=== PATIENT | female | born 1945 | race Caucasian/White ===

== ENCOUNTER 2023-09-22 02:27 | Inpatient (IN) | payer MEDICARE ==
[2023-09-22 03:38] LABS: Basophils # (A) 0.1 k/uL (0-0.2); Basophils % (A) 1 %; Eosinophils # (A) 0.3 k/uL (0-0.7); Eosinophils % (A) 4 %; HCT 37.4 % (34.0-46.0); HGB 12.1 gm/dL (11.4-16.0); Lymphocytes # (A) 1.8 k/uL (1.0-4.8); Lymphocytes % (A) 21 %; MCH 34.6 pg (25.0-35.0); MCHC 32.5 g/dL (31.0-37.0); MCV 106.4 fL (80.0-100.0); Macrocytosis Moderate; Mean Platelet Volume 8.5; Monocytes # (A) 0.5 k/uL (0-1.0); Monocytes % (A) 6 %; Neutrophils # (A) 5.9 k/uL (1.3-7.7); Neutrophils % (A) 68 %; Platelet Count 293 k/uL (150-450); RBC 3.51 m/uL (3.80-5.40); WBC 8.8 k/uL (3.8-10.6)
[2023-09-22 03:51] LABS: ALT 11 U/L (4-34); AST 19 U/L (14-36); African American GFR (CKD) 36 (>60 ml/min/1.73 sqM); Albumin 3.9 g/dL (3.5-5.0); Alkaline Phosphatase 73 U/L (38-126); Anion Gap 15 mmol/L; Blood Urea Nitrogen 32 mg/dL (7-17); Calcium 9.1 mg/dL (8.4-10.2); Carbon Dioxide 18 mmol/L (22-30); Chloride 108 mmol/L (98-107); Glucose 113 mg/dL (74-99); INR 0.9 (<1.2); Non-African American GFR(CKD) 31 (>60 ml/min/1.73 sqM); Potassium 4.1 mmol/L (3.5-5.1); Prothrombin Time 10.4 sec (10.0-12.5); Sodium 141 mmol/L (137-145); Total Bilirubin 0.5 mg/dL (0.2-1.3); Total Protein 7.7 g/dL (6.3-8.2)
--- NOTE | 2023-09-22 03:56 | ED ---
General Adult HPI - General Chief complaint: Weakness Stated complaint: Weakness Time Seen by Provider: 09/22/23 03:32 Source: patient, RN notes reviewed, old records reviewed Mode of arrival: EMS Limitations: no limitations - History of Present Illness Initial comments: 78-year-old presenting for evaluation of increased weakness. Patient is incontinent of both urine and stool. states that she's been calm progressively more weak and difficult to take care of at home. She's been unable to stand without assistance. No specific fall or trauma. No reported fever. - Related Data Allergies Allergy/AdvReac Type Severity Reaction Status Date / Time prochlorperazine Allergy Anaphylaxis Verified 09/22/23 03:03 [From Compazine] Review of Systems ROS Statement: Those systems with pertinent positive or pertinent negative responses have been documented in the HPI. ROS Other: All systems not noted in ROS Statement are negative. Past Medical History Past Medical History: Diabetes Mellitus Additional Past Medical History / Comment(s): short term memory loss History of Any Multi-Drug Resistant Organisms: None Reported Past Surgical History: Hysterectomy Past Psychological History: No Psychological Hx Reported Smoking Status: Never smoker Past Alcohol Use History: Occasional Past Drug Use History: None Reported General Exam Limitations: no limitations General appearance: alert, in no apparent distress Head exam: Present: atraumatic, normocephalic Eye exam: Present: normal appearance, PERRL ENT exam: Present: normal exam Neck exam: Present: normal inspection Respiratory exam: Present: normal lung sounds bilaterally. Absent: respiratory distress, wheezes Cardiovascular Exam: Present: regular rate, normal rhythm GI/Abdominal exam: Present: soft. Absent: distended, tenderness, guarding Neurological exam: Present: alert, CN II-XII intact. Absent: motor sensory deficit Skin exam: Present: warm, dry, intact Course Vital Signs 09/22/23 09/22/23 02:57 04:53 Temperature 98 F Pulse Rate 69 66 Respiratory 18 18 Rate Blood Pressure 118/63 139/66 O2 Sat by Pulse 99 Oximetry Medical Decision Making - Medical Decision Making Was pt. sent in by a medical professional or institution (, PA, HORTICULTURE TEACHER, urgent care, hospital, or senior living...) When possible be specific @ -No Did you speak to anyone other than the patient for history (EMS, parent, family, police, friend...)? What history was obtained from this source @ -No Did you review nursing and triage notes (agree or disagree)? Why? @ -I reviewed and agree with nursing and triage notes Were old charts reviewed (outside hosp., previous admission, EMS record, old EKG, old radiological studies, urgent care reports/EKG's, senior living records)? Report findings @ -No old charts were reviewed Differential Diagnosis (chest pain, altered mental status, abdominal pain women, abdominal pain men, vaginal bleeding, weakness, fever, dyspnea, syncope, headache, dizziness, GI bleed, back pain, seizure, CVA, palpatations, mental health, musculoskeletal)? @ -Differential Weakness: Hypoglycemia, shock, sepsis, hyponatremia, anemia, infection, AK, ETOH, adverse medicine reaction, overdose, stroke, this is not meant to be an all-inclusive list. EKG interpreted by me (3pts min.). @Sinus rhythm rate of 62, NH interval 191, QRS duration 110, QTC [address] segment elevation. X-rays interpreted by me (1pt min.). @ -Chest x-ray negative for acute cardiopulmonary findings. CT interpreted by me (1pt min.). @ -None done U/S interpreted by me (1pt. min.). @ -None done What testing was considered but not performed or refused? (CT, X-rays, U/S, labs)? Why? @ -None What meds were considered but not given or refused? Why? @ -None Did you discuss the management of the patient with other professionals (professionals i.e. , PA, HORTICULTURE TEACHER, lab, RT, psych nurse, social services specialist, machinist outside, teacher, landing signal officer, spring encaser)? Give summary @ -No Was smoking cessation discussed for >3mins.? @ -No Was critical care preformed (if so, how long)? @ -No Were there social determinants of health that impacted care today? How? (Homelessness, low income, unemployed, alcoholism, drug addiction, transp ortation, low edu. Level, literacy, decrease access to med. care, fci, rehab)? @ -No Was there de-escalation of care discussed even if they declined (Discuss DNR or withdrawal of care, Hospice)? DNR status @ -No What co-morbidities impacted this encounter? (DM, HTN, Smoking, COPD, CAD, Cancer, CVA, ARF, Chemo, Hep., AIDS, mental health diagnosis, sleep apnea, morbid obesity)? @ -[Early dementia Was patient admitted / discharged? Hospital course, mention meds given and route, prescriptions, significant lab abnormalities, going to OR and other pertinent info. @ -78-year-old female presenting with weakness, difficulty ambulating, patient requiring more assistance at home and her is able to provide. This is been a gradual change. She has elevated creatinine at 1.58 without baseline for comparison. Urinalysis is pending. Other laboratory testing is unremarkable. Patient will likely require placement, or short-term rehabilitation She will be admitted to internal medicine. Undiagnosed new problem with uncertain prognosis? @ -No Drug Therapy requiring intensive monitoring for toxicity (Heparin, Nitro, Insulin, Cardizem)? @ -No Were any procedures done? @ -No Diagnosis/symptom? @ -[Generalized weakness, unable to ambulate without assistance Acute, or Chronic, or Acute on Chronic? @ -Acute Uncomplicated (without systemic symptoms) or Complicated (systemic symptoms)? @ -default Side effects of treatment? @ -No Exacerbation, Progression, or Severe Exacerbation? @ -No Poses a threat to life or bodily function? How? (Chest pain, USA, AK, pneumonia, PE, COPD, DKA, ARF, appy, cholecystitis, CVA, Diverticulitis, Homicidal, Suicidal, threat to staff... and all critical care pts) @Low risk at this time - Lab Data Result diagrams: 09/22/23 03:09 09/22/23 03:09 Lab Results 09/22/23 09/22/23 09/22/23 Range/Units 03:09 03:09 03:09 WBC 8.8 (3.8-10.6) k/uL RBC 3.51 L (3.80-5.40) m/uL Hgb 12.1 (11.4-16.0) gm/dL Hct 37.4 (34.0-46.0) % MCV 106.4 H (80.0-100.0) fL MCH 34.6 (25.0-35.0) pg MCHC 32.5 (31.0-37.0) g/dL RDW 13.0 (11.5-15.5) % Plt Count 293 (150-450) k/uL MPV 8.5 Neutrophils % 68 % Lymphocytes % 21 % Monocytes % 6 % Eosinophils % 4 % Basophils % 1 % Neutrophils # 5.9 (1.3-7.7) k/uL Lymphocytes # 1.8 (1.0-4.8) k/uL Monocytes # 0.5 (0-1.0) k/uL Eosinophils # 0.3 (0-0.7) k/uL Basophils # 0.1 (0-0.2) k/uL Macrocytosis Moderate PT 10.4 (10.0-12.5) sec INR 0.9 (<1.2) APTT 21.4 L (22.0-30.0) sec Sodium 141 (137-145) mmol/L Potassium 4.1 (3.5-5.1) mmol/L Chloride 108 H (98-107) mmol/L Carbon Dioxide 18 L (22-30) mmol/L Anion Gap 15 mmol/L BUN 32 H (7-17) mg/dL Creatinine 1.58 H (0.52-1.04) mg/dL Est GFR (CKD-EPI)AfAm 36 (>60 ml/min/1.73 sqM) Est GFR (CKD-EPI)NonAf 31 (>60 ml/min/1.73 sqM) Glucose 113 H (74-99) mg/dL Calcium 9.1 (8.4-10.2) mg/dL Total Bilirubin 0.5 (0.2-1.3) mg/dL AST 19 (14-36) U/L ALT 11 (4-34) U/L Alkaline Phosphatase 73 (38-126) U/L Troponin I (0.000-0.034) ng/mL Total Protein 7.7 (6.3-8.2) g/dL Albumin 3.9 (3.5-5.0) g/dL Influenza Type A (PCR) (Not Detectd) Influenza Type B (PCR) (Not Detectd) RSV (PCR) (Not Detectd) SARS-CoV-2 (PCR) (Not Detectd) 09/22/23 09/22/23 Range/Units 03:09 03:09 WBC (3.8-10.6) k/uL RBC (3.80-5.40) m/uL Hgb (11.4-16.0) gm/dL Hct (34.0-46.0) % MCV (80.0-100.0) fL MCH (25.0-35.0) pg MCHC (31.0-37.0) g/dL RDW (11.5-15.5) % Plt Count (150-450) k/uL MPV Neutrophils % % Lymphocytes % % Monocytes % % Eosinophils % % Basophils % % Neutrophils # (1.3-7.7) k/uL Lymphocytes # (1.0-4.8) k/uL Monocytes # (0-1.0) k/uL Eosinophils # (0-0.7) k/uL Basophils # (0-0.2) k/uL Macrocytosis PT (10.0-12.5) sec INR (<1.2) APTT (22.0-30.0) sec Sodium (137-145) mmol/L Potassium (3.5-5.1) mmol/L Chloride (98-107) mmol/L Carbon Dioxide (22-30) mmol/L Anion Gap mmol/L BUN (7-17) mg/dL Creatinine (0.52-1.04) mg/dL Est GFR (CKD-EPI)AfAm (>60 ml/min/1.73 sqM) Est GFR (CKD-EPI)NonAf (>60 ml/min/1.73 sqM) Glucose (74-99) mg/dL Calcium (8.4-10.2) mg/dL Total Bilirubin (0.2-1.3) mg/dL AST (14-36) U/L ALT (4-34) U/L Alkaline Phosphatase (38-126) U/L Troponin I <0.012 (0.000-0.034) ng/mL Total Protein (6.3-8.2) g/dL Albumin (3.5-5.0) g/dL Influenza Type A (PCR) Not Detected (Not Detectd) Influenza Type B (PCR) Not Detected (Not Detectd) RSV (PCR) Not Detected (Not Detectd) SARS-CoV-2 (PCR) Not Detected (Not Detectd) Disposition Clinical Impression: Dehydration, Weakness Disposition: ADMITTED IP TO THIS HOSP Condition: Stable Is patient prescribed a controlled substance at d/c from ED?: No Referrals: Trista Wilder MD [Primary Care Provider] - 1-2 days Time of Disposition: 05:06
[2023-09-22 04:21] LABS: Partial Thromboplastin Time 21.4 sec (22.0-30.0)
[2023-09-22] MEDS ORDERED: NALOXONE 0.4 MG/ML 1 ML VIAL IV PRN ×2 (05:06→10:25)
[2023-09-22] MEDS: SODIUM CHLORIDE 0.9% 1,000 ML IV SCH ×2 (05:11→16:06)
--- NOTE | 2023-09-22 06:00 | XR ---
EXAMINATION TYPE: XR chest 2V DATE OF EXAM: 09/22/2023 COMPARISON: NONE HISTORY: Weakness TECHNIQUE: Frontal and lateral views of the chest are obtained. FINDINGS: Mild linear interstitial changes favor chronic fibrosis. There is no suspicious focal air space opacity, pleural effusion, or pneumothorax seen. Patient is rotated to the right. The cardiac s ilhouette size is within normal limits. Surgical change to the cervical and lumbar spine is partially imaged. IMPRESSION: No acute process.
[2023-09-22 08:38] LABS: Glucose,Whole Blood 100 mg/dL (70-110)
[2023-09-22] MEDS ORDERED: CALCIUM CARBONATE 500 MG CHEWABLE PO PRN (10:25)
[2023-09-22] MEDS ORDERED: ONDANSETRON 4 MG/2 ML VIAL IVP PRN (10:25)
[2023-09-22] MEDS ORDERED: MELATONIN 3 MG TABLET PO PRN (10:25)
[2023-09-22] MEDS ORDERED: MAG HYDROX/AL HYDROX/SIMETH 30 ML CUP PO PRN (10:25)
[2023-09-22 11:25] LABS: Glucose,Whole Blood 379 mg/dL (70-110)
[2023-09-22] MEDS ORDERED: DEXTROSE 50% SYRINGE 50 ML IVP PRN ×2 (11:51)
[2023-09-22] MEDS: INSULIN ASPART (NovoLOG) 100 UNIT/ML VIAL SQ SCH ×3 (12:00→20:52)
[2023-09-22 12:03] LABS: C Reactive Protein 4.1 mg/dL (<1.0)
--- NOTE | 2023-09-22 12:59 | US ---
EXAMINATION TYPE: US kidneys/renal and bladder DATE OF EXAM: 09/22/2023 COMPARISON: NONE CLINICAL INDICATION: Female, 78 years old with history of Clarence; CLARENCE EXAM MEASUREMENTS: Right Kidney: 8.7x4.5x4.4 cm Left Kidney: 9.4x4.1x3.9 cm Right Kidney: No hydronephrosis or masses seen Left Kidney: No hydronephrosis or masses seen Bladder: wnl, pt. on cath Bilateral Jets seen: not visualized due to flash artifact There is no evidence for hydronephrosis at this point in time. No nephrolithiasis is seen. No melva s are identified. The urinary bladder is anechoic. exam slightly limited by bowel and body habitus, right kidney technically difficult to image due to m alrotation IMPRESSION: No obstructive uropathy or renal calculi.
[2023-09-22 13:30] LABS: T4, Free (Free Thyroxine) 1.18 ng/dL (0.78-2.19)
--- NOTE | 2023-09-22 13:46 | P.HPIM ---
History of Present Illness H&P Date: 09/22/23 History of present illness; she is a 78-year-old lady with significant past medi fei history of hypertension, dementia, was brought to the ER for evaluation for generalized weakness. patient is accompanied by her who noticed that over the last 1 week patient has become more weak. There was no complain of any fever or chills. No complaints of nausea, vomiting or abdominal pain. noted that the patient has no strength in her legs, patient spends most of her days in her lounge chair and even urinate there without trying to get up and go to the restroom. Family denies any recent falls. There was no complain of orthopnea or PND. There was no complain of shortness of breath. No complaint of chest pain.. Because of generalized weakness, patient was brought to the ER Initial lab work done in the ER showed WBC 8.8, hemoglobin 12.1, platelet count 293, sodium 141 potassium 4.1, BUN 22, creatinine 1.58, glucose 113 calcium 9.1 Influenza A not detected Influenza B not detected RSV not detected COVID-19 not detected EKG done in the ER showed heart rate of 62, no ST segment elevation or depression seen, no T-wave inversions seen. Chest x-ray done in the ER showed no acute process Patient admitted to internal medicine service REVIEW OF SYSTEMS: CONSTITUTIONAL: As mentioned above HEENT: No recent visual problems or hearing problems. Denied any sore throat. CARDIOVASCULAR: No chest pain, orthopnea, PND, no palpitations, no syncope. PULMONARY: No shortness of breath, no cough, no hemoptysis. GASTROINTESTINAL: No diarrhea, no nausea, no vomiting, no abdominal pain. NEUROLOGICAL: As mentioned above HEMATOLOGICAL: Denies any bleeding or petechiae. GENITOURINARY: Denies any burning micturition, frequency, or urgency. MUSCULOSKELETAL/RHEUMATOLOGICAL: Denies any joint pain, swelling, or any muscle pain. ENDOCRINE: Denies any polyuria or polydipsia. The rest of the 14-point review of systems is negative. PHYSICAL EXAMINATION: GENERAL: The patient is alert and oriented x3, not in any acute distress. Well developed, well nourished. HEENT: Pupils are round and equally reacting to light. EOMI. No scleral icterus. No conjunctival pallor. Normocephalic, atraumatic. No pharyngeal erythema. No thyromegaly. CARDIOVASCULAR: S1 and S2 present. No murmurs, rubs, or gallops. PULMONARY: Chest is clear to auscultation, no wheezing or crackles. ABDOMEN: Soft, nontender, nondistended, normoactive bowel sounds. No palpable organomegaly. MUSCULOSKELETAL: No joint swelling or deformity. EXTREMITIES: No cyanosis, clubbing, or pedal edema. NEUROLOGICAL: Gross neurological examination did not reveal any focal deficits. SKIN: No rashes. Assessment and plan Dehydration Acute kidney injury Hypertension Dementia Monitor vital signs Monitor CBC Monitor CMP Continue telemetry monitoring Ordered ultrasound of kidneys Continue IV fluids Check UA Ordered vitamin B12 and folate Ordered pro-Fei, ESR, CRP Continue antiemetics Check PT and OT Resume home meds Labs and medication were reviewed.. Continue same treatment. Continue with s ymptomatic treatment. Resume home medication. Monitor labs and vitals. DVT and GI prophylaxis. Further recommendations as per clinical course of the patient Dictation was produced using [employer] dictation software. please excuse any grammatical, word or spelling errors. Past Medical History Past Medical History: Diabetes Mellitus Additional Past Medical History / Comment(s): short term memory loss History of Any Multi-Drug Resistant Organisms: None Reported Past Surgical History: Hysterectomy Past Psychological History: No Psychological Hx Reported Smoking Status: Never smoker Past Alcohol Use History: Occasional Past Drug Use History: None Reported Medications and Allergies Home Medications Medication Instructions Recorded Confirmed Type Apixaban [Eliquis] 5 mg PO BID 09/22/23 09/22/23 History Atorvastatin [Lipitor] 40 mg PO DAILY 09/22/23 09/22/23 History Dicyclomine [Bentyl] 10 mg PO QID PRN 09/22/23 09/22/23 History Losartan [Cozaar] 25 mg PO DAILY 09/22/23 09/22/23 History Memantine [Namenda] 10 mg PO BID 09/22/23 09/22/23 History Pioglitazone [Actos] 15 mg PO DAILY 09/22/23 09/22/23 History Potassium Chloride ER [K-Dur 20] 20 meq PO PC-BID 09/22/23 09/22/23 History Allergies Allergy/AdvReac Type Severity Reaction Status Date / Time prochlorperazine Allergy Anaphylaxis Verified 09/22/23 10:22 [From Compazine] Physical Exam Vitals: Vital Signs Temp Pulse Pulse Resp BP BP Pulse Ox 09/22/23 08:30 98.1 F 69 17 141/70 95 09/22/23 06:32 66 17 133/59 96 09/22/23 04:53 66 18 139/66 09/22/23 02:57 98 F 69 18 118/63 99 Intake and Output 09/21/23 09/22/23 09/22/23 22:59 06:59 14:59 Other: Weight 95.254 kg Results CBC & Chem 7: 09/22/23 03:09 09/22/23 03:09 Labs: Abnormal Lab Results - Last 24 Hours (Table) 09/22/23 09/22/23 09/22/23 Range/Units 03:09 03:09 03:09 RBC 3.51 L (3.80-5.40) m/uL MCV 106.4 H (80.0-100.0) fL APTT 21.4 L (22.0-30.0) sec Chloride 108 H (98-107) mmol/L Carbon Dioxide 18 L (22-30) mmol/L BUN 32 H (7-17) mg/dL Creatinine 1.58 H (0.52-1.04) mg/dL Glucose 113 H (74-99) mg/dL
--- NOTE | 2023-09-22 15:11 | XR ---
EXAMINATION TYPE: XR spine complete AP and Lat DATE OF EXAM: 09/22/2023 2:24 PM CLINICAL INDICATION:Female, 78 years old with history of fall; [facility] COMPARISON: None TECHNIQUE: XR spine complete AP and Lat views of the thoracic spine in Frontal and lateral projection s. FINDINGS: Postsurgical changes to the cervical spine and lumbar spine with hardware intact. There is IVC filter. No evidence of acute fracture. There is scattered multilevel disk space narrowing withou t loss of vertebral body height. There is normal alignment of the thoracic vertebral bodies. Scattere d osteophyte formation along the anterior and lateral aspects of the vertebral bodies. Neural foramen are patent given limitations of this exam. Spinal canal appears patent. Severe atherosclerosis of th e arterial vasculature. IMPRESSION: Post surgical changes with hardware intact. Moderate multilevel degeneration changes with osteophyte formation and disc space narrowing..
[2023-09-22] MEDS: MEMANTINE 10 MG TAB PO SCH ×2 (16:06→20:09)
[2023-09-22 16:37] LABS: Glucose,Whole Blood 74 mg/dL (70-110)
[2023-09-22 20:06] LABS: Glucose,Whole Blood 165 mg/dL (70-110)
[2023-09-22] MEDS: traMADol 50 MG TAB PO PRN (20:08)
[2023-09-22] MEDS: APIXABAN 5 MG TAB PO SCH (20:09)
[2023-09-23] MEDS: traMADol 50 MG TAB PO PRN ×3 (02:26→16:35)
[2023-09-23 05:43] LABS: Appearance,Urine Clear (Clear); Bacteria,Urine Occasional /hpf; Bilirubin,Urine Negative (Negative); Blood,Urine Negative (Negative); Color,Urine Colorless; Glucose,Urine (UA) Negative (Negative); Ketones,Urine Negative (Negative); Leukocyte Esterase,Urine Large (Negative); Nitrite,Urine Positive (Negative); PH, Urine 5.5 (5.0-8.0); Protein,Urine Negative (Negative); RBC,Urine 1 /hpf (0-5); Specific Gravity,Urine 1.012 (1.001-1.035); Squamous Epithelial Cell,Urine 1 /hpf (0-4); Urobilinogen,Urine <2.0 mg/dL (<2.0); WBC,Urine 29 /hpf (0-5)
[2023-09-23 06:08] LABS: Glucose,Whole Blood 111 mg/dL (70-110)
[2023-09-23] MEDS: INSULIN ASPART (NovoLOG) 100 UNIT/ML VIAL SQ SCH ×4 (06:08→20:19)
[2023-09-23] MEDS: SODIUM CHLORIDE 0.9% 1,000 ML IV SCH ×2 (06:49→21:10)
[2023-09-23] MEDS: ATORVASTATIN 40 MG TAB PO SCH (08:15)
[2023-09-23] MEDS: MEMANTINE 10 MG TAB PO SCH ×2 (08:15→21:09)
[2023-09-23] MEDS: APIXABAN 5 MG TAB PO SCH ×2 (08:15→21:09)
[2023-09-23 09:07] LABS: ALT 9 U/L (4-34); AST 15 U/L (14-36); African American GFR (CKD) 45 (>60 ml/min/1.73 sqM); Albumin/Globulin Ratio 0.9; Alkaline Phosphatase 68 U/L (38-126); Anion Gap 11 mmol/L; Blood Urea Nitrogen 20 mg/dL (7-17); Calcium 8.9 mg/dL (8.4-10.2); Carbon Dioxide 20 mmol/L (22-30); Chloride 109 mmol/L (98-107); Globulin 3.4 g/dL; Glucose 101 mg/dL (74-99); Non-African American GFR(CKD) 39 (>60 ml/min/1.73 sqM); Potassium 4.2 mmol/L (3.5-5.1); Sodium 140 mmol/L (137-145); Total Bilirubin 0.7 mg/dL (0.2-1.3); Total Protein 6.4 g/dL (6.3-8.2)
--- NOTE | 2023-09-23 10:34 | P.PN ---
Subjective Progress Note Date: 09/23/23 she is a 78-year-old lady with significant past medical history of hypertension, dementia, was brought to the ER for evaluation for generalized weakness. patient is accompanied by her who noticed that over the last 1 week patient has become more weak. There was no complain of any fever or chills. No complaints of nausea, vomiting or abdominal pain. noted that the patient has no strength in her legs, patient spends most of her days in her lounge chair and even urinate there without trying to get up and go to the restroom. Family denies any recent falls. There was no complain of orthopnea or PND. There was no complain of shortness of breath. No complaint of chest pain.. Because of generalized weakness, patient was brought to the ER Initial lab work done in the ER showed WBC 8.8, hemoglobin 12.1, platelet count 293, sodium 141 potassium 4.1, BUN 22, creatinine 1.58, glucose 113 calcium 9.1 Influenza A not detected Influenza B not detected RSV not detected COVID-19 not detected EKG done in the ER showed heart rate of 62, no ST segment elevation or de pression seen, no T-wave inversions seen. Chest x-ray done in the ER showed no acute process Patient admitted to internal medicine service REVIEW OF SYSTEMS: CONSTITUTIONAL: No fever, no malaise,. CARDIOVASCULAR: No chest pain, no palpitations, no syncope. PULMONARY: No shortness of breath, no cough, GASTROINTESTINAL: No diarrhea, no nausea, no vomiting, no abdominal pain. NEUROLOGICAL: No headaches, no weakness, PHYSICAL EXAMINATION: GENERAL: The patient is alert and oriented x3, not in any acute distress. Well developed, well nourished. HEENT: Pupils are round and equally reacting to light. EOMI. No scleral icterus. No conjunctival pallor. Normocephalic, atraumatic. No pharyngeal erythema. No thyromegaly. CARDIOVASCULAR: S1 and S2 present. No murmurs, rubs, or gallops. PULMONARY: Chest is clear to auscultation, no wheezing or crackles. ABDOMEN: Soft, nontender, nondistended, normoactive bowel sounds. No palpable organomegaly. MUSCULOSKELETAL: No joint swelling or deformity. EXTREMITIES: No cyanosis, clubbing, or pedal edema. NEUROLOGICAL: Gross neurological examination did not reveal any focal deficits. SKIN: No rashes. Assessment and plan Dehydration UTI Acute kidney injury Hypertension Dementia Monitor vital signs Monitor CBC Monitor CMP Continue telemetry monitoring Ultrasound kidneys showed no obstruction or hydronephrosis Continue IV fluids UA suspicious for infection vitamin B12 is 376 and folate pro-Fei is normal, ESR is 75, CRP 4.1 Continue antiemetics PT and OT Resume home meds Labs and medication were reviewed.. Continue same treatment. Continue with symptomatic treatment. Resume home medication. Monitor labs and vitals. DVT and GI prophylaxis. Further recommendations as per clinical course of the patient Dictation was produced using [employer] dictation software. please excuse any grammatical, word or spelling errors. Objective - Vital Signs Vital signs: Vital Signs Temp 98.1 F 09/23/23 08:11 Pulse 78 09/23/23 08:11 Resp 18 09/23/23 08:11 BP 151/59 09/23/23 08:11 Pulse Ox 95 09/23/23 08:11 FiO2 Intake & Output 09/22/23 09/23/23 09/23/23 18:59 06:59 18:59 Intake Total 318 Output Total 400 1100 Balance -82 -1100 Intake: Oral 318 Output: Urine 400 1100 Other: Voiding Method External Catheter External Catheter External Catheter - Labs CBC & Chem 7: 09/22/23 03:09 09/23/23 08:00 Labs: Abnormal Lab Results - Last 24 Hours (Table) 09/22/23 09/22/23 09/22/23 Range/Units 10:36 10:36 11:23 ESR 75 H (0-30) mm/Hr Chloride (98-107) mmol/L Carbon Dioxide (22-30) mmol/L BUN (7-17) mg/dL Creatinine (0.52-1.04) mg/dL Glucose (74-99) mg/dL POC Glucose (mg/dL) 379 H (70-110) mg/dL C-Reactive Protein 4.1 H (<1.0) mg/dL Albumin (3.5-5.0) g/dL TSH 13.000 H (0.465-4.680) mIU/L Urine Nitrite (Negative) Ur Leukocyte Esterase (Negative) Urine WBC (0-5) /hpf Urine Bacteria (None) /hpf 09/22/23 09/23/23 09/23/23 Range/Units 20:05 05:20 06:07 ESR (0-30) mm/Hr Chloride (98-107) mmol/L Carbon Dioxide (22-30) mmol/L BUN (7-17) mg/dL Creatinine (0.52-1.04) mg/dL Glucose (74-99) mg/dL POC Glucose (mg/dL) 165 H 111 H (70-110) mg/dL C-Reactive Protein (<1.0) mg/dL Albumin (3.5-5.0) g/dL TSH (0.465-4.680) mIU/L Urine Nitrite Positive H (Negative) Ur Leukocyte Esterase Large H (Negative) Urine WBC 29 H (0-5) /hpf Urine Bacteria Occasional H (None) /hpf 09/23/23 Range/Units 08:00 ESR (0-30) mm/Hr Chloride 109 H (98-107) mmol/L Carbon Dioxide 20 L (22-30) mmol/L BUN 20 H (7-17) mg/dL Creatinine 1.32 H (0.52-1.04) mg/dL Glucose 101 H (74-99) mg/dL POC Glucose (mg/dL) (70-110) mg/dL C-Reactive Protein (<1.0) mg/dL Albumin 3.0 L (3.5-5.0) g/dL TSH (0.465-4.680) mIU/L Urine Nitrite (Negative) Ur Leukocyte Esterase (Negative) Urine WBC (0-5) /hpf Urine Bacteria (None) /hpf
[2023-09-23 11:11] LABS: HCT 33.5 % (37.2-46.3); HGB 10.8 g/dL (12.0-15.0); MCH 34.7 pg (27.0-32.0); MCHC 32.2 g/dL (32.0-37.0); MCV 107.7 FL (80.0-97.0); Mean Platelet Volume 10.9 FL (9.5-12.2); NRBC Per 100 WBC 0 X 10*3/uL (0.00-0.01); Platelet Count 270 X 10*3/uL (140-440); RBC 3.11 X 10*6/uL (4.10-5.20); RDW 13.3 % (11.5-14.5); WBC 9.24 X 10*3/uL (4.50-10.00)
[2023-09-23 12:02] LABS: Glucose,Whole Blood 85 mg/dL (70-110)
[2023-09-23 12:09] LABS: Basophils # (A) 0.06 X 10*3/uL (0.00-0.10); Basophils % (A) 0.6 %; Eosinophils # (A) 0.33 X 10*3/uL (0.04-0.35); Eosinophils % (A) 3.6 %; Lymphocytes # (A) 1.94 X 10*3/uL (0.90-5.00); Macrocytosis (M) 2+; Monocytes # (A) 1.05 X 10*3/uL (0.20-1.00); Monocytes % (A) 11.4 %; Neutrophils # (A) 5.83 X 10*3/uL (1.80-7.70); Neutrophils % (A) 63.1 %
[2023-09-23] MEDS: GABAPENTIN 100 MG CAP PO SCH ×2 (12:46→21:09)
[2023-09-23 16:32] LABS: Glucose,Whole Blood 86 mg/dL (70-110)
[2023-09-23 20:00] LABS: Glucose,Whole Blood 123 mg/dL (70-110)
[2023-09-23] MEDS: ACETAMINOPHEN TAB 325 MG TAB PO PRN (21:09)
[2023-09-24] MEDS: SODIUM CHLORIDE 0.9% 1,000 ML IV SCH ×2 (05:31→21:42)
[2023-09-24 06:56] LABS: Glucose,Whole Blood 93 mg/dL (70-110)
[2023-09-24] MEDS: INSULIN ASPART (NovoLOG) 100 UNIT/ML VIAL SQ SCH ×4 (06:58→21:42)
[2023-09-24] MEDS: APIXABAN 5 MG TAB PO SCH ×2 (08:02→21:32)
[2023-09-24] MEDS: ATORVASTATIN 40 MG TAB PO SCH (08:02)
[2023-09-24] MEDS: GABAPENTIN 100 MG CAP PO SCH ×2 (08:02→21:32)
[2023-09-24] MEDS: MEMANTINE 10 MG TAB PO SCH ×2 (08:03→21:32)
[2023-09-24] MEDS: traMADol 50 MG TAB PO PRN ×2 (09:08→16:32)
[2023-09-24] MEDS: ACETAMINOPHEN TAB 325 MG TAB PO PRN (10:53)
[2023-09-24 11:37] LABS: Glucose,Whole Blood 92 mg/dL (70-110)
--- NOTE | 2023-09-24 15:45 | P.PN ---
Subjective Progress Note Date: 09/24/23 78-year-old lady with significant past medical history of hypertension, dementia, was brought to the ER for evaluation for generalized weakness. patient is accompanied by her who noticed that over the last 1 week patient has become more weak. There was no complain of any fever or chills. No complaints of nausea, vomiting or abdominal pain. noted that the patient has no strength in her legs, patient spends most of her days in her lounge chair and even urinate there without trying to get up and go to the restroom. Family denies any recent falls. There was no complain of orthopnea or PND. There was no complain of shortness of breath. No complaint of chest pain.. Because of generalized weakness, patient was brought to the ER Initial lab work done in the ER showed WBC 8.8, hemoglobin 12.1, platelet count 293, sodium 141 potassium 4.1, BUN 22, creatinine 1.58, glucose 113 calcium 9.1 Influenza A not detected Influenza B not detected RSV not detected COVID-19 not detected EKG done in the ER showed heart rate of 62, no ST segment elevation or depression seen, no T-wave inversions seen. Chest x-ray done in the ER showed no acute process Patient has been evaluated by PT/OT and is recommended skilled rehab; discussed with patient that side and she is agreeable Objective - Vital Signs Vital signs: Vital Signs Temp 98.4 F 09/24/23 07:50 Pulse 79 09/24/23 07:50 Resp 18 09/24/23 07:50 BP 145/46 09/24/23 07:50 Pulse Ox 97 09/24/23 07:50 FiO2 Intake & Output 09/23/23 09/24/23 09/24/23 18:59 06:59 18:59 Intake Total 240 Output Total 425 700 Balance -425 -700 240 Weight 96 kg Intake: Oral 240 Output: Urine 425 700 Other: Voiding Method External Catheter External Catheter External Catheter - Exam GENERAL: The patient is alert and oriented x3, not in any acute distress. Well developed, well nourished. HEENT: Pupils are round and equally reacting to light. EOMI. No scleral icterus. No conjunctival pallor. Normocephalic, atraumatic. No pharyngeal erythema. No thyromegaly. CARDIOVASCULAR: S1 and S2 present. No murmurs, rubs, or gallops. PULMONARY: Chest is clear to auscultation, no wheezing or crackles. ABDOMEN: Soft, nontender, nondistended, normoactive bowel sounds. No palpable organomegaly. MUSCULOSKELETAL: No joint swelling or deformity. EXTREMITIES: No cyanosis, clubbing, or pedal edema. NEUROLOGICAL: Gross neurological examination did not reveal any focal deficits. SKIN: No rashes. - Labs CBC & Chem 7: 09/23/23 08:00 09/23/23 08:00 Labs: Abnormal Lab Results - Last 24 Hours (Table) 09/23/23 Range/Units 19:59 POC Glucose (mg/dL) 123 H (70-110) mg/dL Assessment and Plan Assessment: Dehydration Acute kidney injury Hypertension Dementia Monitor vital signs Monitor CBC Monitor CMP Continue telemetry monitoring Ordered ultrasound of kidneys Continue IV fluids Check UA Ordered vitamin B12 and folate Ordered pro-Fei, ESR, CRP Continue antiemetics Check PT and OT Resume home meds Labs and medication were reviewed.. Continue same treatment. Continue with symptomatic treatment. Resume home medication. Monitor labs and vitals. DVT and GI prophylaxis. Further recommendations as per clinical course of the patient
[2023-09-24 16:40] LABS: Glucose,Whole Blood 118 mg/dL (70-110)
[2023-09-24 20:05] LABS: Glucose,Whole Blood 117 mg/dL (70-110)
[2023-09-25] MEDS: traMADol 50 MG TAB PO PRN ×2 (02:28→08:18)
[2023-09-25] MEDS: INSULIN ASPART (NovoLOG) 100 UNIT/ML VIAL SQ SCH ×4 (06:04→20:26)
[2023-09-25 06:05] LABS: Glucose,Whole Blood 94 mg/dL (70-110)
[2023-09-25] MEDS: APIXABAN 5 MG TAB PO SCH ×2 (07:34→20:30)
[2023-09-25] MEDS: GABAPENTIN 100 MG CAP PO SCH ×2 (07:35→20:30)
[2023-09-25] MEDS: MEMANTINE 10 MG TAB PO SCH ×2 (07:35→20:30)
[2023-09-25] MEDS: ATORVASTATIN 40 MG TAB PO SCH (07:38)
[2023-09-25 09:38] LABS: BUN/Creat Ratio 12.64 Ratio (12.00-20.00); Blood Urea Nitrogen 17.7 mg/dL (9.0-27.0); Calcium 8.7 mg/dL (8.7-10.3); Carbon Dioxide 20.8 mmol/L (21.6-31.8); Chloride 108 mmol/L (96-109); Glucose 88 mg/dL (70-110); Potassium 4.1 mmol/L (3.5-5.5); Sodium 140 mmol/L (135-145)
[2023-09-25] MEDS: ACETAMINOPHEN TAB 325 MG TAB PO PRN ×2 (10:59→18:02)
[2023-09-25 12:40] LABS: Glucose,Whole Blood 166 mg/dL (70-110)
[2023-09-25 12:40] LABS: Glucose,Whole Blood 32 mg/dL (70-110)
[2023-09-25 12:48] LABS: Glucose,Whole Blood 150 mg/dL (70-110)
[2023-09-25 16:54] LABS: Glucose,Whole Blood 109 mg/dL (70-110)
[2023-09-25 19:21] LABS: Glucose,Whole Blood 99 mg/dL (70-110)
[2023-09-25] MEDS: SODIUM CHLORIDE 0.9% 1,000 ML IV SCH (19:54)
--- NOTE | 2023-09-25 19:54 | P.PN ---
Subjective Progress Note Date: 09/25/23 78-year-old lady with significant past medical history of hypertension, dementia, was brought to the ER for evaluation for generalized weakness. patient is accompanied by her who noticed that over the last 1 week patient has become more weak. There was no complain of any fever or chills. No complaints of nausea, vomiting or abdominal pain. noted that the patient has no strength in her legs, patient spends most of her days in her lounge chair and even urinate there without trying to get up and go to the restroom. Family denies any recent falls. There was no complain of orthopnea or PND. There was no complain of shortness of breath. No complaint of chest pain.. Because of generalized weakness, patient was brought to the ER Initial lab work done in the ER showed WBC 8.8, hemoglobin 12.1, platelet count 293, sodium 141 potassium 4.1, BUN 22, creatinine 1.58, glucose 113 calcium 9.1 Influenza A not detected Influenza B not detected RSV not detected COVID-19 not detected EKG done in the ER showed heart rate of 62, no ST segment elevation or depression seen, no T-wave inversions seen. Chest x-ray done in the ER showed no acute process Patient has been evaluated by PT/OT and is recommended skilled rehab; discussed with patient that side and she is agreeable 09/25/2023 Patient is seen and evaluated with aspirin at bedside; no specific complaints reported Vital signs are reviewed temperature 98.2, pulse 82, respirations 17 and blood pressure of 99/61 with O2 saturation 97% on 2 L Labs are stable with sodium 140, potassium 4.1, BUN/creatinine of 17.7 with creatinine of 1.4 blood glucoses ranging between 100-150 -- Patient has been evaluated by PT/OT and is recommended skilled rehab; we shouldn't and family are agreeable - Case management on board Objective - Vital Signs Vital signs: Vital Signs Temp 97.9 F 09/25/23 07:05 Pulse 82 09/25/23 08:18 Resp 16 09/25/23 08:18 BP 150/65 09/25/23 07:05 Pulse Ox 100 09/25/23 07:05 FiO2 Intake & Output 09/24/23 09/25/23 09/25/23 18:59 06:59 18:59 Intake Total 240 Output Total 800 1400 Balance -560 -1400 Intake: Oral 240 Output: Urine 800 1400 Other: Voiding Method External Catheter External Catheter External Catheter # Voids 2 - Exam GENERAL: The patient is alert and oriented x3, not in any acute distress. Well developed, well nourished. HEENT: Pupils are round and equally reacting to light. EOMI. No scleral icterus. No conjunctival pallor. Normocephalic, atraumatic. No pharyngeal erythema. No thyromegaly. CARDIOVASCULAR: S1 and S2 present. No murmurs, rubs, or gallops. PULMONARY: Chest is clear to auscultation, no wheezing or crackles. ABDOMEN: Soft, nontender, nondistended, normoactive bowel sounds. No palpable organomegaly. MUSCULOSKELETAL: No joint swelling or deformity. EXTREMITIES: No cyanosis, clubbing, or pedal edema. NEUROLOGICAL: Gross neurological examination did not reveal any focal deficits. SKIN: No rashes. - Labs CBC & Chem 7: 09/23/23 08:00 09/25/23 06:18 Labs: Abnormal Lab Results - Last 24 Hours (Table) 09/24/23 09/24/23 09/25/23 Range/Units 16:38 20:03 06:18 Carbon Dioxide 20.8 L (21.6-31.8) mmol/L Est GFR (CKD-EPI) 39 L (>=60) POC Glucose (mg/dL) 118 H 117 H (70-110) mg/dL Microbiology - Last 24 Hours (Table) 09/23/23 05:20 Urine Culture - Preliminary Urine,Voided Gram Neg Bacilli Assessment and Plan Assessment: Dehydration Acute kidney injury Hypertension Dementia Monitor vital signs Monitor CBC Monitor CMP Continue telemetry monitoring Ordered ultrasound of kidneys Continue IV fluids Check UA Ordered vitamin B12 and folate Ordered pro-Fei, ESR, CRP Continue antiemetics Check PT and OT Resume home meds Labs and medication were reviewed.. Continue same treatment. Continue with symptomatic treatment. Resume home medication. Monitor labs and vitals. DVT and GI prophylaxis. Further recommendations as per clinical course of the patient
--- NOTE | 2023-09-25 23:37 | P.CONS ---
History of Present Illness - Reason for Consult Consult date: 09/25/23 - History of Present Illness Patient is a 78-year-old female with a past medical history difficult for diabetes mellitus presenting to the hospital 09/22/2023 for evaluation of increased weakness incontinent of urine and stool in this patient symptom has been progressively getting worse has also been complaining of worsening of her chronic lower back pain patient on presentation to the hospital was afebrile she did spike a fever last night of 102.3 F, patient was also tachycardic last night but not hypoxic patient did have a white count of 9.24 creatinine is 1.4 liver labs has been normal patient did have a positive UA influenza RSV COVID testing was negative urine culture currently growing gram-negative patient was started on ceftriaxone infectious disease was consulted for further management of antibiotic therapy. Patient complaining of not feeling well no energy has had complaining of mostly lower back pain no focal weakness no chest pain shortness of breath or cough no nausea no vomiting no diarrhea Past Medical History Past Medical History: Diabetes Mellitus Additional Past Medical History / Comment(s): short term memory loss History of Any Multi-Drug Resistant Organisms: None Reported Past Surgical History: Hysterectomy Past Anesthesia/Blood Transfusion Reactions: No Reported Reaction Past Psychological History: No Psychological Hx Reported Smoking Status: Never smoker Past Alcohol Use History: Occasional Past Drug Use History: None Reported - Past Family History Mother History Unknown: Yes Medications and Allergies Home Medications Medication Instructions Recorded Confirmed Type Apixaban [Eliquis] 5 mg PO BID 09/22/23 09/22/23 History Atorvastatin [Lipitor] 20 mg PO HS 09/22/23 09/22/23 History Cholecalciferol [Vitamin D3 (125 250 mcg PO DAILY 09/22/23 09/22/23 History Mcg = 5000 Iu)] DULoxetine HCL [Cymbalta] 30 mg PO DAILY 09/22/23 09/22/23 History Dicyclomine [Bentyl] 10 mg PO QID PRN 09/22/23 09/22/23 History Donepezil [Aricept] 10 mg PO HS 09/22/23 09/22/23 History Furosemide [Lasix] 80 mg PO DAILY 09/22/23 09/22/23 History Isosorbide Mononitrate ER [Imdur] 30 mg PO DAILY 09/22/23 09/22/23 History Levothyroxine Sodium [Synthroid] 200 mcg PO DAILY 09/22/23 09/22/23 History Losartan [Cozaar] 25 mg PO DAILY 09/22/23 09/22/23 History Memantine [Namenda] 10 mg PO BID 09/22/23 09/22/23 History Metoprolol Tartrate [Lopressor] 25 mg PO BID 09/22/23 09/22/23 History Pioglitazone [Actos] 15 mg PO DAILY 09/22/23 09/22/23 History Potassium Chloride ER [K-Dur 20] 20 meq PO PC-BID 09/22/23 09/22/23 History rOPINIRole HCL [Requip] 0.5 mg PO HS 09/22/23 09/22/23 History Allergies Allergy/AdvReac Type Severity Reaction Status Date / Time prochlorperazine Allergy Anaphylaxis Verified 09/22/23 10:22 [From Compazine] Physical Exam Vitals: Vital Signs Temp Pulse Resp BP Pulse Ox 09/25/23 01:10 97.7 F 92 18 119/63 96 09/24/23 18:50 99.3 F 92 18 146/70 98 09/24/23 18:17 98 F 83 20 113/69 99 09/24/23 14:21 98.4 F 85 16 121/64 95 09/24/23 07:50 98.4 F 79 18 145/46 97 Intake and Output 09/24/23 09/25/23 09/25/23 22:59 06:59 14:59 Output Total 800 1400 Balance -800 -1400 Output: Urine 800 1400 Other: Voiding Method External Catheter # Voids 2 Results CBC & Chem 7: 09/23/23 08:00 09/25/23 06:18 Labs: Abnormal Lab Results - Last 24 Hours (Table) 09/24/23 09/24/23 Range/Units 16:38 20:03 POC Glucose (mg/dL) 118 H 117 H (70-110) mg/dL Microbiology - Last 24 Hours (Table) 09/23/23 05:20 Urine Culture - Preliminary Urine,Voided Gram Neg Bacilli Assessment and Plan Plan: 1patient with fever elevated white count positive UA urinary symptoms in the refinishing gram-negative highly suspicious for pyelonephritis likely from enteric gram-negative pathogen 2-complete ultrasound of the kidney bladder area 3-Rocephin 2 g daily to continue while waiting for the culture to finalize We will follow on clinical condition and cultures to further adjust medication if needed Thank you for this consultation we will follow the patient along with you Dictation was produced using [id number] dictation software. please excuse any grammatical, word or spelling errors. Time with Patient: Greater than 30
[2023-09-26] MEDS: SODIUM CHLORIDE 0.9% 1,000 ML IV SCH ×2 (01:46→19:39)
[2023-09-26 05:32] LABS: Glucose,Whole Blood 113 mg/dL (70-110)
[2023-09-26] MEDS: INSULIN ASPART (NovoLOG) 100 UNIT/ML VIAL SQ SCH ×4 (06:13→21:18)
--- NOTE | 2023-09-26 07:00 | P.PN ---
Subjective Progress Note Date: 09/26/23 78-year-old lady with significant past medical history of hypertension, dementia, was brought to the ER for evaluation for generalized weakness. patient is accompanied by her who noticed that over the last 1 week patient has become more weak. There was no complain of any fever or chills. No complaints of nausea, vomiting or abdominal pain. noted that the patient has no strength in her legs, patient spends most of her days in her lounge chair and even urinate there without trying to get up and go to the restroom. Family denies any recent falls. There was no complain of orthopnea or PND. There was no complain of shortness of breath. No complaint of chest pain.. Because of generalized weakness, patient was brought to the ER Initial lab work done in the ER showed WBC 8.8, hemoglobin 12.1, platelet count 293, sodium 141 potassium 4.1, BUN 22, creatinine 1.58, glucose 113 calcium 9.1 Influenza A not detected Influenza B not detected RSV not detected COVID-19 not detected EKG done in the ER showed heart rate of 62, no ST segment elevation or depression seen, no T-wave inversions seen. Chest x-ray done in the ER showed no acute process Patient has been evaluated by PT/OT and is recommended skilled rehab; discussed with patient that side and she is agreeable 09/25/2023 Patient is seen and evaluated with aspirin at bedside; no specific complaints reported Vital signs are reviewed temperature 98.2, pulse 82, respirations 17 and blood pressure of 99/61 with O2 saturation 97% on 2 L Labs are stable with sodium 140, potassium 4.1, BUN/creatinine of 17.7 with creatinine of 1.4 blood glucoses ranging between 100-150 -- Patient has been evaluated by PT/OT and is recommended skilled rehab; we shouldn't and family are agreeable - Case management on board 09/26/2023 Patient is seen and evaluated resting comfortably in bed; no specific complaints reported Vital signs remained stable with temperature of 98.9, pulse 100, respiration 22 and blood pressure of 163/81, O2 saturation 99% on room air patient with fever elevated white count positive UA urinary symptoms in the refinishing gram-negative highly suspicious for pyelonephritis likely from enteric gram-negative pathogen -complete ultrasound of the kidney bladder area -Rocephin 2 g daily to continue while waiting for the culture to finalize Objective - Vital Signs Vital signs: Vital Signs Temp 98.7 F 09/25/23 19:15 Pulse 88 09/25/23 19:15 Resp 18 09/25/23 19:15 BP 152/75 09/25/23 19:15 Pulse Ox 99 09/25/23 19:15 FiO2 Intake & Output 09/25/23 09/25/23 09/26/23 06:59 18:59 06:59 Output Total 1400 3200 Balance -1400 -3200 Output: Urine 1400 3200 Other: Voiding Method External Catheter External Catheter External Catheter # Voids 2 - Exam GENERAL: The patient is alert and oriented x3, not in any acute distress. Well developed, well nourished. HEENT: Pupils are round and equally reacting to light. EOMI. No scleral icterus. No conjunctival pallor. Normocephalic, atraumatic. No pharyngeal erythema. No thyromegaly. CARDIOVASCULAR: S1 and S2 present. No murmurs, rubs, or gallops. PULMONARY: Chest is clear to auscultation, no wheezing or crackles. ABDOMEN: Soft, nontender, nondistended, normoactive bowel sounds. No palpable organomegaly. MUSCULOSKELETAL: No joint swelling or deformity. EXTREMITIES: No cyanosis, clubbing, or pedal edema. NEUROLOGICAL: Gross neurological examination did not reveal any focal deficits. SKIN: No rashes. - Labs CBC & Chem 7: 09/23/23 08:00 09/25/23 06:18 Labs: Abnormal Lab Results - Last 24 Hours (Table) 09/25/23 09/25/23 09/25/23 Range/Units 06:18 12:38 12:39 Carbon Dioxide 20.8 L (21.6-31.8) mmol/L Est GFR (CKD-EPI) 39 L (>=60) POC Glucose (mg/dL) 32 L 166 H (70-110) mg/dL 09/25/23 Range/Units 12:47 Carbon Dioxide (21.6-31.8) mmol/L Est GFR (CKD-EPI) (>=60) POC Glucose (mg/dL) 150 H (70-110) mg/dL Microbiology - Last 24 Hours (Table) 09/23/23 05:20 Urine Culture - Final Urine,Voided Escherichia coli Assessment and Plan Assessment: Dehydration Acute kidney injury Hypertension Dementia Monitor vital signs Monitor CBC Monitor CMP Continue telemetry monitoring Ordered ultrasound of kidneys Continue IV fluids Check UA Ordered vitamin B12 and folate Ordered pro-Fei, ESR, CRP Continue antiemetics Check PT and OT Resume home meds Labs and medication were reviewed.. Continue same treatment. Continue with symptomatic treatment. Resume home medication. Monitor labs and vitals. DVT and GI prophylaxis. Further recommendations as per clinical course of the pat ient
[2023-09-26] MEDS: APIXABAN 5 MG TAB PO SCH ×2 (08:23→21:20)
[2023-09-26] MEDS: ATORVASTATIN 40 MG TAB PO SCH (08:23)
[2023-09-26] MEDS: GABAPENTIN 100 MG CAP PO SCH ×2 (08:23→21:20)
[2023-09-26] MEDS: MEMANTINE 10 MG TAB PO SCH ×2 (08:23→21:20)
[2023-09-26] MEDS: traMADol 50 MG TAB PO PRN ×2 (08:28→16:27)
[2023-09-26 09:52] LABS: BUN/Creat Ratio 13.86 Ratio (12.00-20.00); Blood Urea Nitrogen 19.4 mg/dL (9.0-27.0); Calcium 9.2 mg/dL (8.7-10.3); Carbon Dioxide 20.5 mmol/L (21.6-31.8); Chloride 109 mmol/L (96-109); Glucose 98 mg/dL (70-110); Potassium 4.2 mmol/L (3.5-5.5); Sodium 141 mmol/L (135-145)
[2023-09-26] MEDS: ACETAMINOPHEN TAB 325 MG TAB PO PRN (10:44)
[2023-09-26 11:34] LABS: Glucose,Whole Blood 98 mg/dL (70-110)
[2023-09-26 16:41] LABS: Glucose,Whole Blood 96 mg/dL (70-110)
[2023-09-26 19:57] LABS: Glucose,Whole Blood 113 mg/dL (70-110)
[2023-09-27] MEDS: traMADol 50 MG TAB PO PRN ×3 (00:27→18:03)
[2023-09-27] MEDS: SODIUM CHLORIDE 0.9% 1,000 ML IV SCH ×2 (04:42→12:38)
[2023-09-27 06:04] LABS: Glucose,Whole Blood 92 mg/dL (70-110)
[2023-09-27] MEDS: APIXABAN 5 MG TAB PO SCH ×2 (08:55→21:50)
[2023-09-27] MEDS: ATORVASTATIN 40 MG TAB PO SCH (08:55)
[2023-09-27] MEDS: MEMANTINE 10 MG TAB PO SCH ×2 (08:55→21:50)
[2023-09-27] MEDS: GABAPENTIN 100 MG CAP PO SCH ×2 (08:55→21:50)
[2023-09-27] MEDS: INSULIN ASPART (NovoLOG) 100 UNIT/ML VIAL SQ SCH ×4 (09:01→21:50)
[2023-09-27] MEDS: ACETAMINOPHEN TAB 325 MG TAB PO PRN ×3 (10:08→23:54)
[2023-09-27 10:45] LABS: Basophils % (A) 1 %; Eosinophils # (A) 0.3 k/uL (0-0.7); Eosinophils % (A) 6 %; HCT 30.8 % (34.0-46.0); HGB 10.1 gm/dL (11.4-16.0); Hypochromasia Slight; Lymphocytes # (A) 1.1 k/uL (1.0-4.8); Lymphocytes % (A) 17 %; MCH 35.1 pg (25.0-35.0); MCHC 32.9 g/dL (31.0-37.0); MCV 106.7 fL (80.0-100.0); Macrocytosis Moderate; Mean Platelet Volume 8.3; Monocytes # (A) 0.4 k/uL (0-1.0); Monocytes % (A) 6 %; Neutrophils # (A) 4.3 k/uL (1.3-7.7); Neutrophils % (A) 69 %; Platelet Count 316 k/uL (150-450); RBC 2.89 m/uL (3.80-5.40); RDW 12.7 % (11.5-15.5); WBC 6.3 k/uL (3.8-10.6)
[2023-09-27 11:32] LABS: Glucose,Whole Blood 87 mg/dL (70-110)
[2023-09-27 11:58] LABS: African American GFR (CKD) 42 (>60 ml/min/1.73 sqM); Anion Gap 8 mmol/L; Blood Urea Nitrogen 20 mg/dL (7-17); Calcium 9.1 mg/dL (8.4-10.2); Carbon Dioxide 23 mmol/L (22-30); Chloride 107 mmol/L (98-107); Glucose 80 mg/dL (74-99); Magnesium 1.7 mg/dL (1.6-2.3); Non-African American GFR(CKD) 37 (>60 ml/min/1.73 sqM); Potassium 4.1 mmol/L (3.5-5.1); Sodium 138 mmol/L (137-145)
[2023-09-27] MEDS ORDERED: DICYCLOMINE 10 MG CAP PO PRN (13:57)
[2023-09-27 17:17] LABS: Glucose,Whole Blood 102 mg/dL (70-110)
[2023-09-27] MEDS: POTASSIUM CHLORIDE ER 20 MEQ TAB.ER PO SCH (17:35)
[2023-09-27] MEDS ORDERED: DONEPEZIL 10 MG TAB PO SCH (21:00)
[2023-09-27 21:30] LABS: Glucose,Whole Blood 129 mg/dL (70-110)
[2023-09-27] MEDS: METOPROLOL TARTRATE 25 MG TAB PO SCH (21:50)
[2023-09-28 05:55] LABS: Glucose,Whole Blood 99 mg/dL (70-110)
[2023-09-28] MEDS ORDERED: LEVOTHYROXINE 100 MCG TAB PO SCH (06:30)
[2023-09-28] MEDS: INSULIN ASPART (NovoLOG) 100 UNIT/ML VIAL SQ SCH ×2 (06:38→11:48)
[2023-09-28] MEDS: ATORVASTATIN 40 MG TAB PO SCH (08:22)
[2023-09-28] MEDS: MEMANTINE 10 MG TAB PO SCH (08:22)
[2023-09-28] MEDS: APIXABAN 5 MG TAB PO SCH (08:22)
[2023-09-28] MEDS: POTASSIUM CHLORIDE ER 20 MEQ TAB.ER PO SCH (08:22)
[2023-09-28] MEDS: METOPROLOL TARTRATE 25 MG TAB PO SCH (08:23)
[2023-09-28] MEDS: GABAPENTIN 100 MG CAP PO SCH (08:23)
[2023-09-28] MEDS: SODIUM CHLORIDE 0.9% 1,000 ML IV SCH (08:27)
[2023-09-28] MEDS ORDERED: DULoxetine HCL 30 MG CAPSULE.DR PO SCH (09:00)
[2023-09-28] MEDS ORDERED: CHOLECALCIFEROL 125 MCG (5000 IU) TABLET PO SCH (09:00)
[2023-09-28] MEDS ORDERED: FUROSEMIDE 80 MG TAB PO SCH (09:00)
[2023-09-28] MEDS ORDERED: ISOSORBIDE MONONITRATE ER 30 MG TAB.ER.24H PO SCH (09:00)
[2023-09-28] MEDS ORDERED: LOSARTAN 25 MG TAB PO SCH (09:00)
[2023-09-28] MEDS ORDERED: PIOGLITAZONE 15 MG TAB PO SCH (09:00)
[2023-09-28] MEDS: ACETAMINOPHEN TAB 325 MG TAB PO PRN (10:43)
[2023-09-28 10:48] LABS: Basophils # (A) 0.07 X 10*3/uL (0.00-0.10); Eosinophils # (A) 0.34 X 10*3/uL (0.04-0.35); HCT 28.7 % (37.2-46.3); HGB 9.2 g/dL (12.0-15.0); Lymphocytes # (A) 1.73 X 10*3/uL (0.90-5.00); Lymphocytes % (A) 25.4 %; MCH 33.7 pg (27.0-32.0); MCHC 32.1 g/dL (32.0-37.0); MCV 105.1 FL (80.0-97.0); Mean Platelet Volume 10.6 FL (9.5-12.2); Monocytes % (A) 13.2 %; NRBC Per 100 WBC 0 X 10*3/uL (0.00-0.01); Neutrophils # (A) 3.72 X 10*3/uL (1.80-7.70); Neutrophils % (A) 54.8 %; Platelet Count 324 X 10*3/uL (140-440); RBC 2.73 X 10*6/uL (4.10-5.20); RDW 13.1 % (11.5-14.5)
[2023-09-28 11:08] LABS: ALT 13 U/L (8-44); AST 26 U/L (13-35); Albumin 2.8 g/dL (3.8-4.9); Albumin/Globulin Ratio 0.97 Ratio (1.60-3.17); Alkaline Phosphatase 54 U/L (41-126); BUN/Creat Ratio 13.43 Ratio (12.00-20.00); Blood Urea Nitrogen 18.8 mg/dL (9.0-27.0); Carbon Dioxide 21.6 mmol/L (21.6-31.8); Chloride 111 mmol/L (96-109); Globulin 2.9 g/dL (1.6-3.3); Glucose 82 mg/dL (70-110); Potassium 4.3 mmol/L (3.5-5.5); Sodium 142 mmol/L (135-145); Total Bilirubin 0.2 mg/dL (0.3-1.2); Total Protein 5.7 g/dL (6.2-8.2)
[2023-09-28 11:46] LABS: Glucose,Whole Blood 107 mg/dL (70-110)
--- NOTE | 2023-09-28 12:07 | PN ---
PROGRESS NOTE DATE OF SERVICE: 09/27/2023 SUBJECTIVE: This is a 78-year-old woman who was admitted with dehydration, hypertension, also had features of pyelonephritis. The patient is being closely monitored. No chest pain. No palpitations. No fever. E coli grown from the culture. PHYSICAL EXAMINATION: VITAL SIGNS: Pulse is 76, blood pressure n respiratory rate 17. HEENT: Conjunctivae normal. ABDOMEN: Soft LABORATORY DATA: Hemoglobin 10.1, creatinine 1.31. Other labs are noted. ASSESSMENT: 1. Acute urinary tract infection with possible pyelonephritis with Escherichia coli. 2. Dehydration. 3. Acute kidney injury. 4. Hypertension. 5. Dementia. 6. Multiple complex medical issues. RECOMMENDATIONS: Continue current management and continue the antibiotics. Otherwise, I recommend repeat labs, PT/OT evaluation, and possible ECF rehab. ESTHER / LUKAS: [id number] / MTDD
--- NOTE | 2023-09-28 13:06 | P.DS ---
Providers Date of admission: 09/22/23 05:06 Expected date of discharge: 09/28/23 Attending physician: Herman Dean Consults: 09/24/23 17:26 Consult Physician Routine Consulting Provider: Rochelle Fong Consult Reason/Comments: uti, gram negative bacilli Do you want consulting provider notified?: Yes Primary care physician: Trista Wilder Hospital Course: Final diagnosis Acute urinary tract infection with possible pyelonephritis with E. coli on the cultures Dehydration, improving History of diabetes mellitus Acute kidney injury secondary to dehydration, improving Hypertension history Dementia GI prophylaxis next line DVT prophylaxis next line full code Discharge disposition Patient is being discharged in a stable condition with guarded prognosis to [facility]. Patient will follow-up with Dr. Wilder in the outpatient setting upon discharge. Patient is to continue with oral Ceftin 500 mg twice daily for the next 5 days. Total time taken is greater than 35 minutes. Hospital course This is a 78-year-old female who was recently admitted with dehydration with hypertension also features of pyelonephritis with urinary tract infection, present on admission. Urine cultures finalized showing E. coli with infectious disease following maintained on ceftriaxone and will continue on oral Ceftin 500 mg twice daily for the next 5 days to complete the course. Patient with significant weakness being evaluated by physical therapy recommending rehab and patient and family are agreeable. Patient has been accepted at [facility] and will be discharged today. Please refer to other consultation notes for further HPI. Currently no reports of chest pain, shortness of breath, or palpitations. Patient is afebrile. No reports of nausea or vomiting and patient is tolerating diet. Patient will be going to [facility] today. Guarded prognosis Physical exam: Gen: This is a 78-year-old female who is awake, alert and oriented 2, well- developed, well-nourished, elderly and ill-appearing, obese HEENT: Head is atraumatic, normocephalic. Pupils equal, round. Sclerae is anicteric. NECK: Supple. No JVD. No lymphadenopathy. No thyromegaly. LUNGS: diminished breath sounds bilaterally otherwise Clear to auscultation. No wheezes or rhonchi. No intercostal retractions. HEART: Regular rate and rhythm. No murmur. ABDOMEN: Soft. Obese. Bowel sounds are present. No masses. No tenderness. EXTREMITIES: No pedal edema. No calf tenderness. NEUROLOGICAL: Patient is awake, alert and oriented x2. Cranial nerves 2 through 12 are grossly intact. Diffusely weak Please refer to medication reconciliation sheet for a list of medications. The impression and plan of care has been dictated by So Rabago, Nurse Practitioner as directed. Dr. Jermaine MD I have performed a history and examination and MDM of this patient, discussed the same with the dictator, and agree with the dictator's assessment and plan as written ,documented as a scribe. Based on total visit time, I have performed more than 50% of the visit. Patient Condition at Discharge: Stable Plan - Discharge Summary Discharge Rx Participant: No New Discharge Prescriptions: New Melatonin 3 mg PO HS PRN tab PRN Reason: Insomnia Gabapentin [Neurontin] 100 mg PO BID #3 cap traMADol HCl [Ultram] 50 mg PO Q6H PRN #3 tab PRN Reason: Moderate Pain (Scale 4 To 6) cefUROXime axetiL [Ceftin] 500 mg PO BID 5 Days #10 tab Mag Hydrox/Al Hydrox/Simeth [Maalox] 15 ml PO Q6HR PRN ml PRN Reason: Indigestion INSULIN ASPART (NovoLOG) [NovoLOG (formulary)] 0 unit SQ ACHS each Calcium Carbonate [Tums] 1,000 mg PO Q4HR PRN tab PRN Reason: Dyspepsia Acetaminophen Tab [Tylenol] 650 mg PO Q6HR PRN tab PRN Reason: Mild Pain Or Fever > 100.5 Continue Potassium Chloride ER [K-Dur 20] 20 meq PO PC-BID Memantine [Namenda] 10 mg PO BID Losartan [Cozaar] 25 mg PO DAILY Atorvastatin [Lipitor] 20 mg PO HS Apixaban [Eliquis] 5 mg PO BID Isosorbide Mononitrate ER [Imdur] 30 mg PO DAILY Donepezil [Aricept] 10 mg PO HS Furosemide [Lasix] 80 mg PO DAILY Pioglitazone [Actos] 15 mg PO DAILY Dicyclomine [Bentyl] 10 mg PO QID PRN PRN Reason: IBS rOPINIRole HCL [Requip] 0.5 mg PO HS Levothyroxine Sodium [Synthroid] 200 mcg PO DAILY Cholecalciferol [Vitamin D3 (125 Mcg = 5000 Iu)] 250 mcg PO DAILY Metoprolol Tartrate [Lopressor] 25 mg PO BID DULoxetine HCL [Cymbalta] 30 mg PO DAILY Discharge Medication List Apixaban [Eliquis] 5 mg PO BID 09/22/23 [History] Atorvastatin [Lipitor] 20 mg PO HS 09/22/23 [History] Cholecalciferol [Vitamin D3 (125 Mcg = 5000 Iu)] 250 mcg PO DAILY 09/22/23 [History] DULoxetine HCL [Cymbalta] 30 mg PO DAILY 09/22/23 [History] Dicyclomine [Bentyl] 10 mg PO QID PRN 09/22/23 [History] Donepezil [Aricept] 10 mg PO HS 09/22/23 [History] Furosemide [Lasix] 80 mg PO DAILY 09/22/23 [History] Isosorbide Mononitrate ER [Imdur] 30 mg PO DAILY 09/22/23 [History] Levothyroxine Sodium [Synthroid] 200 mcg PO DAILY 09/22/23 [History] Losartan [Cozaar] 25 mg PO DAILY 09/22/23 [History] Memantine [Namenda] 10 mg PO BID 09/22/23 [History] Metoprolol Tartrate [Lopressor] 25 mg PO BID 09/22/23 [History] Pioglitazone [Actos] 15 mg PO DAILY 09/22/23 [History] Potassium Chloride ER [K-Dur 20] 20 meq PO PC-BID 09/22/23 [History] rOPINIRole HCL [Requip] 0.5 mg PO HS 09/22/23 [History] Acetaminophen Tab [Tylenol] 650 mg PO Q6HR PRN tab 09/28/23 [Rx] Calcium Carbonate [Tums] 1,000 mg PO Q4HR PRN tab 09/28/23 [Rx] Gabapentin [Neurontin] 100 mg PO BID #3 cap 09/28/23 [Rx] INSULIN ASPART (NovoLOG) [NovoLOG (formulary)] 0 unit SQ ACHS each 09/28/23 [Rx] Mag Hydrox/Al Hydrox/Simeth [Maalox] 15 ml PO Q6HR PRN ml 09/28/23 [Rx] Melatonin 3 mg PO HS PRN tab 09/28/23 [Rx] cefUROXime axetiL [Ceftin] 500 mg PO BID 5 Days #10 tab 09/28/23 [Rx] traMADol HCl [Ultram] 50 mg PO Q6H PRN #3 tab 09/28/23 [Rx] Follow up Appointment(s)/Referral(s): Trista Wilder MD [Primary Care Provider] - 1-2 days Activity/Diet/Wound Care/Special Instructions: Patient is going to [facility] Activity as tolerated Continue with antibiotics per ID recommendations until complete for the next 5 days Continue monitoring Accu-Cheks before meals and at bedtime and continue with sliding scale NovoLog sliding scale 0-150 equals 0 units 151-200 equals 2 units 201-250 equals 4 units 251-300 equals 6 units 301-350 equals 8 units 351-400 equals 10 units Please notify provider if blood sugar is 400 or above Follow-up with primary care provider on discharge Discharge Disposition: TRANSFER TO SNF/ECF
[2023-09-28 14:17] VITALS: BP 95/54; PULSE 60; RESP 20; TEMP 97.4
== END 2023-09-28 15:15 | DRG 690 ==
LOC: EC 02:27 → 4SSUR 05:06 → INTOOBSV 05:06 → OBSVTOIN 05:06 → 4SSUR 15:53 → 1SOBS 09-23 12:25 → 4SSUR 09-24 17:32
PROVIDERS: ADMIT Hospitalist; ATTEND Hospitalist
DX: N12 Tubulo-interstitial nephritis, not specified as acute or chronic (principal); B96.20 Unspecified Escherichia coli [E. coli] as the cause of diseases classified elsewhere; R32 Unspecified urinary incontinence; R15.9 Full incontinence of feces; E86.0 Dehydration; I10 Essential (primary) hypertension; N17.9 Acute kidney failure, unspecified; Z79.01 Long term (current) use of anticoagulants; Z79.84 Long term (current) use of oral hypoglycemic drugs; Z79.899 Other long term (current) drug therapy; F03.90 Unspecified dementia, unspecified severity, without behavioral disturbance, psychotic disturbance, mood disturbance, and anxiety; E66.9 Obesity, unspecified; Z68.34 Body mass index [BMI] 34.0-34.9, adult; E11.9 Type 2 diabetes mellitus without complications; G89.29 Other chronic pain; M54.50 Low back pain, unspecified; Z11.52 Encounter for screening for COVID-19; R00.0 Tachycardia, unspecified
CPT/HCPCS: 36415; 71046; 72082; 76770; 80048; 80053; 81001; 82607; 82747; 83735; 84145; 84439; 84443; 84484; 85025; 85610; 85652; 85730; 86140; 87077; 87086; 87186; 87636; 93005; 96365; 99285

== ENCOUNTER 2023-11-23 20:59 | Inpatient (IN) | payer MEDICARE ==
--- NOTE | 2023-11-23 21:15 | ED ---
SOB HPI - General Chief Complaint: Altered Mental Status Stated Complaint: AMS Time Seen by Provider: 11/23/23 21:03 Source: EMS, RN notes reviewed, old records reviewed, Caregiver Mode of arrival: EMS Limitations: altered mental status - History of Present Illness Initial Comments: This is a 78-year-old female who presents for increasing altered mental status and hypoxia for extended care facility. Patient is unable to contribute to history taking patient is in severe distress with hypoxia MD Complaint: shortness of breath, cough, anxiety -: unknown Severity: severe Severity scale (1-10): 9 Consistency: constant Improves With: nothing Worsens With: nothing, exertion Known History Of: COPD, asthma Context: recent URI, recent illness Associated Symptoms: denies other symptoms Treatments Prior to Arrival: none - Related Data Home Medications Medication Instructions Recorded Confirmed Cholecalciferol [Vitamin D3 (125 250 mcg PO DAILY 09/22/23 11/24/23 Mcg = 5000 Iu)] DULoxetine HCL [Cymbalta] 30 mg PO DAILY 09/22/23 11/24/23 Dicyclomine [Bentyl] 10 mg PO QID PRN 09/22/23 11/24/23 Donepezil [Aricept] 10 mg PO HS 09/22/23 11/24/23 Isosorbide Mononitrate ER [Imdur] 30 mg PO DAILY 09/22/23 11/24/23 Levothyroxine Sodium [Synthroid] 200 mcg PO DAILY 09/22/23 11/24/23 Memantine [Namenda] 10 mg PO DAILY 09/22/23 11/24/23 Metoprolol Tartrate [Lopressor] 25 mg PO BID-W/MEALS 09/22/23 11/24/23 rOPINIRole HCL [Requip] 0.5 mg PO TID 09/22/23 11/24/23 Atorvastatin [Lipitor] 20 mg PO HS 11/24/23 11/24/23 Ensure Enlive 237 ml PO DAILY@1200 11/24/23 11/24/23 Furosemide [Lasix] 80 mg PO DAILY 11/24/23 11/24/23 Tj Packet 1 packet PO BID-W/MEALS 11/24/23 11/24/23 Lidocaine 5% Cream 1 applic TOPICAL WE 11/24/23 11/24/23 Magnesium Hydroxide [Milk of 7,200 mg PO DAILY PRN 11/24/23 11/24/23 Magnesia Concentrate] Sennosides [Senokot] 8.6 mg PO BID 11/24/23 11/24/23 bisacodyL [Dulcolax] 10 mg RECTAL DAILY PRN 11/24/23 11/24/23 Previous Rx's Medication Instructions Recorded Acetaminophen Tab [Tylenol] 650 mg PO Q6HR PRN tab 09/28/23 Calcium Carbonate [Tums] 1,000 mg PO Q4HR PRN tab 09/28/23 Gabapentin [Neurontin] 100 mg PO BID #3 cap 09/28/23 Mag Hydrox/Al Hydrox/Simeth 15 ml PO Q6HR PRN ml 09/28/23 [Maalox] Melatonin 3 mg PO HS PRN tab 09/28/23 Albuterol Nebulized [Ventolin 2.5 mg INHALATION RT-QID ml 11/30/23 Nebulized] Apixaban [Eliquis] 2.5 mg PO BID #0 11/30/23 Ertapenem [INVanz] 1 gm IVPB Q24H #40 each 11/30/23 HYDROcodone/APAP 7.5-325MG [[place] 1 tab PO Q6H PRN #20 tab 11/30/23 7.5-325] INSULIN ASPART (NovoLOG) [NovoLOG 0 unit SQ ACHS each 11/30/23 (formulary)] Pantoprazole [Protonix] 40 mg PO AC-BRKFST tab 11/30/23 Allergies Allergy/AdvReac Type Severity Reaction Status Date / Time prochlorperazine Allergy Anaphylaxis Verified 11/24/23 09:59 [From Compazine] Review of Systems ROS Statement: Those systems with pertinent positive or pertinent negative responses have been documented in the HPI. ROS Other: All systems not noted in ROS Statement are negative. Past Medical History Past Medical History: Diabetes Mellitus Additional Past Medical History / Comment(s): short term memory loss History of Any Multi-Drug Resistant Organisms: ESBL, MRSA Date of last positivie culture/infection: 11/11/23 MRSA & ESBL MDRO Source:: Right Heel Past Surgical History: Hysterectomy Past Anesthesia/Blood Transfusion Reactions: No Reported Reaction Past Psychological History: No Psychological Hx Reported Smoking Status: Never smoker Past Alcohol Use History: Occasional Past Drug Use History: None Reported - Past Family History Mother History Unknown: Yes General Exam Limitations: altered mental status General appearance: alert, anxious, in distress Head exam: Present: atraumatic, normocephalic, normal inspection Eye exam: Present: normal appearance, PERRL, EOMI. Absent: scleral icterus, conjunctival injection, periorbital swelling ENT exam: Present: normal exam, mucous membranes moist Neck exam: Present: normal inspection. Absent: tenderness, meningismus, lymphadenopathy Respiratory exam: Present: normal lung sounds bilaterally. Absent: respiratory distress, wheezes, rales, rhonchi, stridor Cardiovascular Exam: Present: regular rate, normal rhythm, normal heart sounds. Absent: systolic murmur, diastolic murmur, rubs, gallop, clicks GI/Abdominal exam: Present: soft, normal bowel sounds. Absent: distended, tenderness, guarding, rebound, rigid Extremities exam: Present: normal inspection, full ROM, normal capillary refill. Absent: tenderness, pedal edema, joint swelling, calf tenderness Back exam: Present: normal inspection Neurological exam: Present: alert, oriented X3, CN II-XII intact Psychiatric exam: Present: normal affect, normal mood Skin exam: Present: warm, dry, intact, normal color. Absent: rash Course Vital Signs 11/23/23 11/23/23 11/23/23 21:01 21:47 21:51 Temperature 98.4 F Pulse Rate 65 64 66 Pulse Rate [ Pulse Oximetery ] Respiratory 19 Rate Blood Pressure 158/88 O2 Sat by Pulse 100 Oximetry 11/23/23 11/24/23 11/24/23 23:00 00:15 00:45 Temperature Pulse Rate 72 70 Pulse Rate [ 79 Pulse Oximetery ] Respiratory 18 16 16 Rate Blood Pressure 115/71 97/48 O2 Sat by Pulse 98 100 Oximetry - Reevaluation(s) Reevaluation #1: 11/23/23 21:15 Medical records reviewed Reevaluation #2: Patient informed of results and questions answered Patient symptoms improved with supportive care here in the ER Reevaluation #3: Patient informed of results and questions answered Reevaluation #4: Was pt. sent in by a medical professional or institution (, PA, STOCK GRADER, urgent care, hospital, or longterm...) When possible be specific @ -no Did you speak to anyone other than the patient for history (EMS, parent, family, police, friend...)? What history was obtained from this source @ -no Did you review nursing and triage notes (agree or disagree)? Why? @ -agree Are old charts reviewed (outside hosp., previous admission, EMS record, old EKG, old radiological studies, urgent care reports/EKG's, longterm records)? Report findings @ -yes Differential Diagnosis (chest pain, altered mental status, abdominal pain women, abdominal pain men, vaginal bleeding, weakness, fever, dyspnea, syncope, headache, dizziness, GI bleed, back pain, seizure, CVA, palpatations, mental health, musculoskeletal)? @ -prior EKG interpreted by me (3pts min.). @ -yes X-rays interpreted by me (1pt min.). @ -yes negative for acute disease CT interpreted by me (1pt min.). @ -no U/S interpreted by me (1pt. min.). @ -no What testing was considered but not performed or refused? (CT, X-rays, U/S, labs)? Why? @ -none What meds were considered but not given or refused? Why? @ -none Did you discuss the management of the patient with other professionals (professionals i.e. , PA, STOCK GRADER, lab, RT, psych nurse, healthcare social worker, production line, teacher, debt recovery officer, assistant case manager)? Give summary @ -no Was smoking cessation discussed for >3mins.? @ -no Was critical care preformed (if so, how long)? @ -yes31 Were there social determinants of health that impacted care today? How? (Homelessness, low income, unemployed, alcoholism, drug addiction, transportation, low edu. Level, literacy, decrease access to med. care, prison, rehab)? @ -none Was there de-escalation of care discussed even if they declined (Discuss DNR or withdrawal of care, Hospice)? DNR status @ -no What co-morbidities impacted this encounter? (DM, HTN, Smoking, COPD, CAD, Cancer, CVA, ARF, Chemo, Hep., AIDS, mental health diagnosis, sleep apnea, morbid obesity)? @ -none Was patient admitted / discharged? Hospital course, mention meds given and route, prescriptions, significant lab abnormalities, going to OR and other pertinent info. @ - 78 female to the ER for evaluation of weakness dehydration shortness of breath patient found to have pneumonia here in the ER with hypoxia and will be admitted for supportive care and IV antibiotics Admitted Undiagnosed new problem with uncertain prognosis? @ -no Drug Therapy requiring intensive monitoring for toxicity (Heparin, Nitro, Insulin, Cardizem)? @ -no Were any procedures done? @ -no Diagnosis/symptom? @ -Pneumonia dehydration hypoxia and altered mental status Acute, or Chronic, or Acute on Chronic? @ -Acute Uncomplicated (without systemic symptoms) or Complicated (systemic symptoms)? @ -Complicated Side effects of treatment? @ -no Exacerbation, Progression, or Severe Exacerbation? @ -exacerbation Poses a threat to life or bodily function? How? (Chest pain, USA, MS, pneumonia, PE, COPD, DKA, ARF, appy, cholecystitis, CVA, Diverticulitis, Homicidal, Suicidal, threat to staff... and all critical care pts) @ -yes significant pneumonia and hypoxia Reevaluation #5: Differential Dyspnea: Coronary syndrome, arrhythmia, tamponade, asthma, COPD, pulmonary embolism, pneumonia, pneumothorax, pulmonary effusion, anaphylaxis, diabetic ketoacidosis, flailed chest, pulmonary contusion, diaphragmatic rupture, anemia, neuromuscular, this is not meant to be an all-inclusive list. Differential Altered Mental Status: Hypoglycemia, DKA, hypercapnia, ETOH, overdose, CO poisoning, trauma, myxedema coma, HTN encephalopathy, infection, encephalitis, psychosis, intercranial hemorrhage, hepatic encephalopathy, meningitis, CVA, this is not meant to be an all-inclusive list - Consultations Consultation #1: Spoke with admitting physicians who agreed to admit this patient Medical Decision Making - Medical Decision Making 78 female to the ER for evaluation of weakness dehydration shortness of breath patient found to have pneumonia here in the ER with hypoxia and will be admitted for supportive care and IV antibiotics - Lab Data Result diagrams: 11/30/23 10:42 11/30/23 10:42 Lab Results 11/23/23 11/23/23 11/23/23 Range/Units 09:15 09:15 09:15 WBC 9.2 (3.8-10.6) k/uL RBC 2.47 L (3.80-5.40) m/uL Hgb 8.2 L D (11.4-16.0) gm/dL Hct 24.3 L (34.0-46.0) % MCV 98.3 D (80.0-100.0) fL MCH 33.1 (25.0-35.0) pg MCHC 33.6 (31.0-37.0) g/dL RDW 14.9 (11.5-15.5) % Plt Count 173 (150-450) k/uL MPV 9.6 Neutrophils % 83 % Lymphocytes % 5 % Monocytes % 3 % Eosinophils % 6 % Basophils % 0 % Neutrophils # 7.6 (1.3-7.7) k/uL Lymphocytes # 0.4 L (1.0-4.8) k/uL Monocytes # 0.3 (0-1.0) k/uL Eosinophils # 0.6 (0-0.7) k/uL Basophils # 0.0 (0-0.2) k/uL PT 12.3 (10.0-12.5) sec INR 1.1 (<1.2) APTT 26.0 (22.0-30.0) sec Sodium 137 (137-145) mmol/L Potassium 4.8 (3.5-5.1) mmol/L Chloride 105 (98-107) mmol/L Carbon Dioxide 13 L (22-30) mmol/L Anion Gap 19 mmol/L BUN 129 H* (7-17) mg/dL Creatinine 3.48 H (0.52-1.04) mg/dL Est GFR (CKD-EPI)AfAm 14 (>60 ml/min/1.73 sqM) Est GFR (CKD-EPI)NonAf 12 (>60 ml/min/1.73 sqM) Glucose 98 (74-99) mg/dL Plasma Lactic Acid Dario (0.7-2.0) mmol/L Calcium 7.4 L (8.4-10.2) mg/dL Phosphorus 4.8 H (2.5-4.5) mg/dL Magnesium 2.1 (1.6-2.3) mg/dL Total Bilirubin 0.3 (0.2-1.3) mg/dL AST 29 (14-36) U/L ALT 14 (4-34) U/L Alkaline Phosphatase 43 (38-126) U/L Troponin I (0.000-0.034) ng/mL NT-Pro-B Natriuret Pep 9390 pg/mL Total Protein 5.6 L (6.3-8.2) g/dL Albumin 2.6 L (3.5-5.0) g/dL Influenza Type A (PCR) (Not Detectd) Influenza Type B (PCR) (Not Detectd) RSV (PCR) (Not Detectd) SARS-CoV-2 (PCR) (Not Detectd) 11/23/23 11/23/23 11/23/23 Range/Units 09:15 09:15 09:15 WBC (3.8-10.6) k/uL RBC (3.80-5.40) m/uL Hgb (11.4-16.0) gm/dL Hct (34.0-46.0) % MCV (80.0-100.0) fL MCH (25.0-35.0) pg MCHC (31.0-37.0) g/dL RDW (11.5-15.5) % Plt Count (150-450) k/uL MPV Neutrophils % % Lymphocytes % % Monocytes % % Eosinophils % % Basophils % % Neutrophils # (1.3-7.7) k/uL Lymphocytes # (1.0-4.8) k/uL Monocytes # (0-1.0) k/uL Eosinophils # (0-0.7) k/uL Basophils # (0-0.2) k/uL PT (10.0-12.5) sec INR (<1.2) APTT (22.0-30.0) sec Sodium (137-145) mmol/L Potassium (3.5-5.1) mmol/L Chloride (98-107) mmol/L Carbon Dioxide (22-30) mmol/L Anion Gap mmol/L BUN (7-17) mg/dL Creatinine (0.52-1.04) mg/dL Est GFR (CKD-EPI)AfAm (>60 ml/min/1.73 sqM) Est GFR (CKD-EPI)NonAf (>60 ml/min/1.73 sqM) Glucose (74-99) mg/dL Plasma Lactic Acid Dario 2.0 (0.7-2.0) mmol/L Calcium (8.4-10.2) mg/dL Phosphorus (2.5-4.5) mg/dL Magnesium (1.6-2.3) mg/dL Total Bilirubin (0.2-1.3) mg/dL AST (14-36) U/L ALT (4-34) U/L Alkaline Phosphatase (38-126) U/L Troponin I 0.016 (0.000-0.034) ng/mL NT-Pro-B Natriuret Pep pg/mL Total Protein (6.3-8.2) g/dL Albumin (3.5-5.0) g/dL Influenza Type A (PCR) Not Detected (Not Detectd) Influenza Type B (PCR) Not Detected (Not Detectd) RSV (PCR) Not Detected (Not Detectd) SARS-CoV-2 (PCR) Not Detected (Not Detectd) - EKG Data -: EKG Interpreted by Me (EKG is sinus 66 [place] 180 QRS 112 QTc 446) - Radiology Data Radiology results: report reviewed (Chest x-ray is the positive for pneumonia), image reviewed Critical Care Time Critical Care Time: Yes Total Critical Care Time: 31 Disposition Clinical Impression: Dehydration, Weakness, Altered mental status, Pneumonia, Hypoxia, Delirium due to general medical condition Disposition: ADMITTED IP TO THIS HOSP Condition: Serious Is patient prescribed a controlled substance at d/c from ED?: No Time of Disposition: 22:15
[2023-11-23] MEDS: IPRATROPIUM-ALBUTEROL 3 ML NEB INHALATION STA (21:47)
--- NOTE | 2023-11-23 21:55 | XR ---
EXAMINATION TYPE: XR chest 1V portable DATE OF EXAM: 11/23/2023 9:49 PM CLINICAL INDICATION:Female, 78 years old with history of flu; [facility] COMPARISON: None TECHNIQUE: XR chest 1V portable Frontal view of the chest. FINDINGS: Lungs/Pleura: Hazy left basilar airspace disease. No evidence of pleural effusion or pneumothorax. Pulmonary vascularity: Unremarkable. Heart/mediastinum: Cardiomediastinal silhouette is unremarkable. Musculoskeletal: No acute osseous pathology. Partially visualized cervical fusion hardware. IMPRESSION: Left basilar airspace disease, may represent developing pneumonia.
[2023-11-23] MEDS: SODIUM CHLORIDE 0.9% 1,000 ML IV STA (21:59)
[2023-11-23 22:04] LABS: ALT 14 U/L (4-34); AST 29 U/L (14-36); African American GFR (CKD) 14 (>60 ml/min/1.73 sqM); Albumin 2.6 g/dL (3.5-5.0); Alkaline Phosphatase 43 U/L (38-126); Anion Gap 19 mmol/L; Calcium 7.4 mg/dL (8.4-10.2); Carbon Dioxide 13 mmol/L (22-30); Chloride 105 mmol/L (98-107); Glucose 98 mg/dL (74-99); Magnesium 2.1 mg/dL (1.6-2.3); Non-African American GFR(CKD) 12 (>60 ml/min/1.73 sqM); Phosphorus 4.8 mg/dL (2.5-4.5); Potassium 4.8 mmol/L (3.5-5.1); Sodium 137 mmol/L (137-145); Total Bilirubin 0.3 mg/dL (0.2-1.3); Total Protein 5.6 g/dL (6.3-8.2)
[2023-11-23 22:11] LABS: NT-Pro-B-Type Natriuretic Pept 9390 pg/mL
[2023-11-23] MEDS ORDERED: PNEUMONIA PROTOCOL UTILIZED 1 EACH MISC PO PRN (22:13)
[2023-11-23 22:14] LABS: Blood Urea Nitrogen 129 mg/dL (7-17)
[2023-11-23 22:29] LABS: Basophils % (A) 0 %; Eosinophils # (A) 0.6 k/uL (0-0.7); Eosinophils % (A) 6 %; HCT 24.3 % (34.0-46.0); Lymphocytes # (A) 0.4 k/uL (1.0-4.8); Lymphocytes % (A) 5 %; MCH 33.1 pg (25.0-35.0); MCHC 33.6 g/dL (31.0-37.0); Mean Platelet Volume 9.6; Monocytes # (A) 0.3 k/uL (0-1.0); Monocytes % (A) 3 %; Neutrophils # (A) 7.6 k/uL (1.3-7.7); Neutrophils % (A) 83 %; Platelet Count 173 k/uL (150-450); RBC 2.47 m/uL (3.80-5.40); RDW 14.9 % (11.5-15.5); WBC 9.2 k/uL (3.8-10.6)
[2023-11-23 22:30] LABS: HGB 8.2 gm/dL (11.4-16.0); INR 1.1 (<1.2); MCV 98.3 fL (80.0-100.0); Prothrombin Time 12.3 sec (10.0-12.5)
[2023-11-23] MEDS: SODIUM CHLORIDE 0.9% 1,000 ML IV SCH (23:02)
[2023-11-23] MEDS: AZITHROMYCIN 500 MG in SODIUM CHLORIDE 0.9% 250 ML IVPB STA (23:59)
[2023-11-24] MEDS: IPRATROPIUM-ALBUTEROL 3 ML NEB INHALATION STA (00:34)
[2023-11-24 01:34] LABS: Glucose,Whole Blood 80 mg/dL (70-110)
[2023-11-24 05:48] LABS: Amorphous Sediment,Urine Occasional /hpf; Appearance,Urine Clear (Clear); Bacteria,Urine Occasional /hpf; Bilirubin,Urine Negative (Negative); Blood,Urine Moderate (Negative); Color,Urine Yellow; Glucose,Urine (UA) Negative (Negative); Hyaline Casts,Urine 1 /lpf (0-2); Ketones,Urine Negative (Negative); Leukocyte Esterase,Urine Small (Negative); Mucus,Urine Rare /hpf; Nitrite,Urine Negative (Negative); PH, Urine 5.5 (5.0-8.0); Protein,Urine 1+ (Negative); RBC,Urine 3 /hpf (0-5); Specific Gravity,Urine 1.015 (1.001-1.035); Squamous Epithelial Cell,Urine 1 /hpf (0-4); Urobilinogen,Urine <2.0 mg/dL (<2.0); WBC,Urine 5 /hpf (0-5)
[2023-11-24] MEDS: ACETAMINOPHEN TAB 325 MG TAB PO PRN (06:02)
[2023-11-24 07:15] LABS: Glucose,Whole Blood 119 mg/dL (70-110)
[2023-11-24] MEDS: ALBUTEROL NEBULIZED 2.5 MG/3 ML INHALATION SCH (07:52)
--- NOTE | 2023-11-24 07:58 | P.HPIM ---
History of Present Illness H&P Date: 11/24/23 Chief Complaint: Acute kidney failure, GI bleed, severe PAD of both lower ex tremity, nonheal HISTORY OF PRESENT ILLNESS: 78-year-old Female who I been taking care of from [facility] since September with history of Alzheimer disease, type 2 diabetes, hypertension, hyperlipidemia, chronic depression, atrial fibrillation who was hospitalized at [facility] in September for severe generalized weakness with debility not been able to ambulate and walk was treated for severe dehydration and sent to SNF for rehab patient has not done well continue to have a problem with ambulating and walking 3 weeks ago found to have worsening infection of both heel area with severe PAD of the lower extremity had an appointment to see vascular but culture was done for it at the time shows 3 bulks include Proteus mirabilis, E. coli and methicillin-resistant Staph aureus and all match for clearance to be treated with Bactrim DS. Patient was started on Bactrim DS since November 11, 2023 she has an appointment with vascular sometime this week. As a part of her routine her lab was done earlier today and shows acute kidney failure with bun of 129 and creatinine 3.45 with worsening anemia hemoglobin is down to 8.2 from her borderline 10 early. The patient was sent to the emergency department for the acute kidney failure might require urgent hemodialysis and not clear whether this is dehydration based or happened because of effect of the Bactrim DS. Was seen and evaluated in the emergency department her hemoglobin went up to 9.2 but Hemoccult was positive and bun down to 123 with creatinine of 2.43 influenza RSV and COVID were negative. The patient was admitted to the hospital will consult nephrology, consult infectious disease and consult vascular at this point which initially was not able to see for at least an extra week. REVIEW OF SYSTEMS: CONSTITUTIONAL: Elderly quite confused in no acute respiratory distress EYES: No icterus sclerae, no conjunctivitis. EARS, NOSE, MOUTH, THROAT, and FACE: No sore throat, lymphadenopathy, carotid bruits or deformity. RESPIRATORY: Mild shortness of breath no cough or wheezes.. CARDIOVASCULAR: No CP, Palpitation, PND, Orthopnea, or angina. GASTROINTESTINAL: No Abd pain, Nausea or vomiting, no Diarrhea or constipation, Hemoccult is positive for no complaint of abdominal pain or active bleed. GENITOURINARY: Negative for Hematuria or UTI, no kidney stones. Acute kidney failure. INTEGUMENT/BREAST: Negative for any muscular injury with mild osteoarthritis.. HEMATOLOGIC/LYMPHATIC: Negative for bleed or purpura. MUSCULOSKELTAL: Negative for Myalgia or arthralgia. Both lower extremity with nasty looking area of infection on the heel area bilaterally smelled bad. NEURLOGICAL: No LOC, Sz or syncope, blurred vision dizziness or abnormality. Advanced dementia. BEHAVIORAL/PSYCH: Negative. ENDOCRINE: Negative. PHYSICAL EXAMINATION: General Appearance: Alert, cooperative, looks older than her age does not respond much does not look in any respiratory distress. Neck HEENT: Supple, no lymphadenopathy, no thyroid enlargement, no carotid bruits. Lungs: Decreased breath sound bilaterally with fine rhonchi slight crackles in the bases specially right side. Chest Wall: Decreased l expansion with deep inspiration no tenderness and no deformity was found on exam, no costochondral pain or discomfort. Heart: Irregular rate and rhythm, S1, S2 normal, no murmur, rub or gallop. Back: Symmetric, no curvature, ROM normal, no CVA tenderness. Abdomen: Soft, non-tender, bowel sounds active all four quadrants, no masses, no organomegaly. Slight discomfort lower abdominal region area. Extremities: Not able to feel any palpable pulse and dorsalis pedis or posterior tibial but there is an open wound area in the heel the side of her foot looks like stage II with measurement of 5.7 cm. Pulses: Not palpable. Skin: Skin color, texture, tugor normal, no rashes or lesions. Neurologic: Alert not oriented cranial nerves II through XII intact, generalized weakness not been able to do gait exam. ASSESSMENT AND PLAN: _Acute kidney failure: Not a clear etiology could be dehydration with side effect of medication including Bactrim and furosemide and having infection she is having both lower extremity, admit patient to the hospital continue hydration repeat BUN/creatinine in the morning Jaimes cath currently watching her urine output will consult nephrology in the prepare for possible urgent dialysis. _Severe infection of both feet Proteus mirabilis, E. coli and MRSA, will consult infectious disease and wound care at this point we will switch patient to IV antibiotics something might be viable for the today without having perfect kidney function can be combination of Vanco and meropenem. _Left side pneumonia or infiltrate: Not a clear clinically does not have pneumonia whether antibiotic she is going to be going for her wound care should be able to take care of it continue to watch her symptoms we will add some updraft treatment on oxygen. _GI bleed: With anemia and positive Hemoccult watch for any active bleed at this point patient is on anticoagulation and with the stress she is going to especially with the kidney failure to some degree. Expected, will watch her CBC at least twice a day see for any active ongoing bleeding. _Type 2 diabetes: Has been on pioglitazone, NovoLog per sliding scales one of the idea probably to take her off the pioglitazone and switch her to long-acting and short acting insulin. _Advanced dementia: Has been on Namenda and donepezil we will continue both medication. _Peripheral arterial disease of lower extremity: Will consult vascular eventually might need to have arterial Doppler and will be preferred to do an angiogram but under the circumstances were kidney function is not possible. _History of A-fib with RVR her EKG this time does not show any A-fib she is still on metoprolol and Eliquis will hold Eliquis because of GI bleed will even tually decrease the dose to 2.5 mg twice a day. _Hypothyroidism: Continue levothyroxine 200 mcg daily. _Peripheral neuropathy: Has been having more symptoms mostly related to her ulcer and infection apparently she is doing gabapentin 100 mg twice a day and duloxetine 30 mg daily. _Hyperlipidemia: Continue Lipitor 20 mg daily. _Hypertension: Was on metoprolol combined with losartan 25 mg a day but resume medication. _DVT prophylaxis: Was on anticoagulation will hold off for now and continue knee-high KEEGAN hose. _GI prophylaxis: Patient will be on pantoprazole IV. CODE STATUS: Full code. Admit patient to the inpatient service for more than 2 night stay. Past Medical History Past Medical History: Diabetes Mellitus Additional Past Medical History / Comment(s): short term memory loss History of Any Multi-Drug Resistant Organisms: ESBL, MRSA Date of last positivie culture/infection: 11/11/23 MRSA & ESBL MDRO Source:: Right Heel Past Surgical History: Hysterectomy Past Anesthesia/Blood Transfusion Reactions: No Reported Reaction Past Psychological History: No Psychological Hx Reported Smoking Status: Never smoker Past Alcohol Use History: Occasional Past Drug Use History: None Reported - Past Family History Mother History Unknown: Yes Medications and Allergies Home Medications Medication Instructions Recorded Confirmed Type Apixaban [Eliquis] 5 mg PO BID 09/22/23 09/22/23 History Atorvastatin [Lipitor] 20 mg PO HS 09/22/23 09/22/23 History Cholecalciferol [Vitamin D3 (125 250 mcg PO DAILY 09/22/23 09/22/23 History Mcg = 5000 Iu)] DULoxetine HCL [Cymbalta] 30 mg PO DAILY 09/22/23 09/22/23 History Dicyclomine [Bentyl] 10 mg PO QID PRN 09/22/23 09/22/23 History Donepezil [Aricept] 10 mg PO HS 09/22/23 09/22/23 History Furosemide [Lasix] 80 mg PO DAILY 09/22/23 09/22/23 History Isosorbide Mononitrate ER [Imdur] 30 mg PO DAILY 09/22/23 09/22/23 History Levothyroxine Sodium [Synthroid] 200 mcg PO DAILY 09/22/23 09/22/23 History Losartan [Cozaar] 25 mg PO DAILY 09/22/23 09/22/23 History Memantine [Namenda] 10 mg PO BID 09/22/23 09/22/23 History Metoprolol Tartrate [Lopressor] 25 mg PO BID 09/22/23 09/22/23 History Pioglitazone [Actos] 15 mg PO DAILY 09/22/23 09/22/23 History Potassium Chloride ER [K-Dur 20] 20 meq PO PC-BID 09/22/23 09/22/23 History rOPINIRole HCL [Requip] 0.5 mg PO HS 09/22/23 09/22/23 History Acetaminophen Tab [Tylenol] 650 mg PO Q6HR PRN tab 09/28/23 Rx Calcium Carbonate [Tums] 1,000 mg PO Q4HR PRN tab 09/28/23 Rx Gabapentin [Neurontin] 100 mg PO BID #3 cap 09/28/23 Rx INSULIN ASPART (NovoLOG) [NovoLOG 0 unit SQ ACHS each 09/28/23 Rx (formulary)] Mag Hydrox/Al Hydrox/Simeth 15 ml PO Q6HR PRN ml 09/28/23 Rx [Maalox] Melatonin 3 mg PO HS PRN tab 09/28/23 Rx cefUROXime axetiL [Ceftin] 500 mg PO BID 5 Days #10 tab 09/28/23 Rx traMADol HCl [Ultram] 50 mg PO Q6H PRN #3 tab 09/28/23 Rx Allergies Allergy/AdvReac Type Severity Reaction Status Date / Time prochlorperazine Allergy Anaphylaxis Verified 11/23/23 21:09 [From Compazine] Physical Exam Vitals: Vital Signs Temp Pulse Pulse Resp BP BP Pulse Ox 11/24/23 01:16 97.7 F 79 16 97/46 90 L 11/24/23 00:45 79 16 11/24/23 00:15 70 16 97/48 100 11/23/23 23:00 72 18 115/71 98 11/23/23 21:51 66 11/23/23 21:47 64 11/23/23 21:01 98.4 F 65 19 158/88 100 Intake and Output 11/23/23 11/23/23 11/24/23 14:59 22:59 06:59 Other: Voiding Method Diaper External Catheter Weight 90.718 kg 90.718 kg Results CBC & Chem 7: 11/23/23 09:15 11/23/23 09:15 Labs: Abnormal Lab Results - Last 24 Hours (Table) 11/23/23 11/23/23 11/23/23 Range/Units 09:15 09:15 23:15 RBC 2.47 L (3.80-5.40) m/uL Hgb 8.2 L D (11.4-16.0) gm/dL Hct 24.3 L (34.0-46.0) % Lymphocytes # 0.4 L (1.0-4.8) k/uL Carbon Dioxide 13 L (22-30) mmol/L BUN 129 H* (7-17) mg/dL Creatinine 3.48 H (0.52-1.04) mg/dL Calcium 7.4 L (8.4-10.2) mg/dL Phosphorus 4.8 H (2.5-4.5) mg/dL Total Protein 5.6 L (6.3-8.2) g/dL Albumin 2.6 L (3.5-5.0) g/dL Stool Occult Blood Positive H (Negative) Thrombosis Risk Factor Assmnt - Choose All That Apply Any of the Below Risk Factors Present?: No Other Risk Factors: Yes Each Risk Factor Represents 3 Points: Age 75 years or older Thrombosis Risk Factor Assessment Total Risk Factor Score: 3 Thrombosis Risk Factor Assessment Level: Moderate Risk
[2023-11-24 08:38] LABS: Basophils # (A) 0.01 X 10*3/uL (0.00-0.10); Basophils % (A) 0.1 %; Eosinophils # (A) 0.72 X 10*3/uL (0.04-0.35); Eosinophils % (A) 6.9 %; HCT 26.5 % (37.2-46.3); HGB 8.6 g/dL (12.0-15.0); Lymphocytes # (A) 0.51 X 10*3/uL (0.90-5.00); Lymphocytes % (A) 4.9 %; MCH 32.3 pg (27.0-32.0); MCHC 32.5 g/dL (32.0-37.0); MCV 99.6 FL (80.0-97.0); Mean Platelet Volume 12.3 FL (9.5-12.2); Monocytes # (A) 0.49 X 10*3/uL (0.20-1.00); Monocytes % (A) 4.7 %; NRBC Per 100 WBC 0 X 10*3/uL (0.00-0.01); Neutrophils # (A) 8.64 X 10*3/uL (1.80-7.70); Neutrophils % (A) 82.2 %; Platelet Count 187 X 10*3/uL (140-440); RBC 2.66 X 10*6/uL (4.10-5.20)
[2023-11-24] MEDS: VANCOMYCIN IV PER PHARMACY 1 EACH MISC MISCELLANE SCH (08:53)
[2023-11-24] MEDS: PANTOPRAZOLE 40 MG TABLET PO SCH (08:53)
[2023-11-24] MEDS: MEROPENEM 1 GM in SODIUM CHLORIDE 0.9% 100 ML IVPB SCH (08:58)
[2023-11-24 09:14] LABS: NT-Pro-B-Type Natriuretic Pept 6588 pg/mL (0-450)
[2023-11-24 09:29] LABS: ALT 17 U/L (8-44); AST 50 U/L (13-35); Albumin/Globulin Ratio 0.97 Ratio (1.60-3.17); Alkaline Phosphatase 43 U/L (41-126); BUN/Creat Ratio 31.58 Ratio (12.00-20.00); Calcium 8.7 mg/dL (8.7-10.3); Carbon Dioxide 16.4 mmol/L (21.6-31.8); Chloride 105 mmol/L (96-109); Globulin 3.1 g/dL (1.6-3.3); Glucose 97 mg/dL (70-110); Potassium 4.8 mmol/L (3.5-5.5); Sodium 137 mmol/L (135-145); Total Bilirubin <0.2 mg/dL (0.3-1.2); Total Protein 6.1 g/dL (6.2-8.2)
--- NOTE | 2023-11-24 11:17 | XR ---
EXAMINATION TYPE: XR chest 1V DATE OF EXAM: 11/24/2023 COMPARISON: 11/23/2023 HISTORY: 78-year-old female pneumonia TECHNIQUE: Single frontal view of the chest is obtained. FINDINGS: ACDF hardware. Heart mildly enlarged. No sizable pleural effusion. Hazy bibasilar densitie s likely due to body habitus and underpenetration. IMPRESSION: Similar mild cardiomegaly and interstitial prominence. No progressive infiltrate seen.
[2023-11-24 11:36] VITALS: BMI 33.3
[2023-11-24 12:07] LABS: Glucose,Whole Blood 95 mg/dL (70-110)
--- NOTE | 2023-11-24 13:01 | P.GSCN ---
History of Present Illness Consult date: 11/24/23 Reason for Consult: Infected both feet with severe PAD Requesting physician: Carmelo Woods History of present illness: This is a 78-year-old female with a history of Alzheimer's, diabetes mellitus, hypertension, hyperlipidemia, atrial fibrillation and chronic wounds to bilateral heels. HPI is obtained from patient's chart as she has altered mental status changes, she is not communicating or answering questions. She does follow commands. Patient was brought in from [facility] for confusion, weakness and generalized debility. Patient was recently hospitalized in September for generalized weakness at that time. She was noted to have urinary tract infection and treated. She also had bilateral infected diabetic heel wounds, diagnosed and treated in October of this year. Wound cultures on 11/11/2023 were positive for Proteus Mirabilis, E. coli and MRSA. Apparently she was started on Bactrim. Again patient currently is nonverbal with me as far as how long wounds have been present, if she is having any pain, if she has a history of peripheral arterial disease. According to primary medical team H&P they stat e that patient has peripheral arterial disease although there is no imaging available to review. Also states that she was supposed to see vascular surgery outpatient this week. Review of Systems ROS unobtainable: due to mental status Past Medical History Past Medical History: Diabetes Mellitus Additional Past Medical History / Comment(s): short term memory loss History of Any Multi-Drug Resistant Organisms: ESBL, MRSA Year Discovered:: 11/11/23 MRSA & ESBL MDRO Source:: Right Heel Past Surgical History: Hysterectomy Past Anesthesia/Blood Transfusion Reactions: No Reported Reaction Past Psychological History: No Psychological Hx Reported Smoking Status: Never smoker Past Alcohol Use History: Occasional Past Drug Use History: None Reported - Past Family History Mother History Unknown: Yes Medications and Allergies Home Medications Medication Instructions Recorded Confirmed Type Apixaban [Eliquis] 5 mg PO BID 09/22/23 11/24/23 History Cholecalciferol [Vitamin D3 (125 250 mcg PO DAILY 09/22/23 11/24/23 History Mcg = 5000 Iu)] DULoxetine HCL [Cymbalta] 30 mg PO DAILY 09/22/23 11/24/23 History Dicyclomine [Bentyl] 10 mg PO QID PRN 09/22/23 11/24/23 History Donepezil [Aricept] 10 mg PO HS 09/22/23 11/24/23 History Isosorbide Mononitrate ER [Imdur] 30 mg PO DAILY 09/22/23 11/24/23 History Levothyroxine Sodium [Synthroid] 200 mcg PO DAILY 09/22/23 11/24/23 History Losartan [Cozaar] 25 mg PO DAILY 09/22/23 11/24/23 History Memantine [Namenda] 10 mg PO DAILY 09/22/23 11/24/23 History Metoprolol Tartrate [Lopressor] 25 mg PO BID-W/MEALS 09/22/23 11/24/23 History Pioglitazone [Actos] 15 mg PO DAILY 09/22/23 11/24/23 History Potassium Chloride ER [K-Dur 20] 20 meq PO DAILY 09/22/23 11/24/23 History rOPINIRole HCL [Requip] 0.5 mg PO TID 09/22/23 11/24/23 History Acetaminophen Tab [Tylenol] 650 mg PO Q6HR PRN tab 09/28/23 11/24/23 Rx Calcium Carbonate [Tums] 1,000 mg PO Q4HR PRN tab 09/28/23 11/24/23 Rx Gabapentin [Neurontin] 100 mg PO BID #3 cap 09/28/23 11/24/23 Rx Mag Hydrox/Al Hydrox/Simeth 15 ml PO Q6HR PRN ml 09/28/23 11/24/23 Rx [Maalox] Melatonin 3 mg PO HS PRN tab 09/28/23 11/24/23 Rx Atorvastatin [Lipitor] 20 mg PO HS 11/24/23 11/24/23 History Ensure Enlive 237 ml PO DAILY@1200 11/24/23 11/24/23 History Furosemide [Lasix] 80 mg PO DAILY 11/24/23 11/24/23 History HYDROcodone/APAP 7.5-325MG [[place] 1 tab PO Q6H PRN 11/24/23 11/24/23 History 7.5-325] INSULIN ASPART (NovoLOG) [NovoLOG See Protocol SQ ACHS 11/24/23 11/24/23 History (formulary)] Tj Packet 1 packet PO BID-W/MEALS 11/24/23 11/24/23 History Lidocaine 5% Cream 1 applic TOPICAL WE 11/24/23 11/24/23 History Magnesium Hydroxide [Milk of 7,200 mg PO DAILY PRN 11/24/23 11/24/23 History Magnesia Concentrate] Na Phos,M-B/Na Phos,Di-Ba [Fleet 133 ml RECTAL DAILY PRN 11/24/23 11/24/23 His tory Adult] Sennosides [Senokot] 8.6 mg PO BID 11/24/23 11/24/23 History Sulfamethoxazole/Trimethoprim 1 tab PO BID 11/24/23 11/24/23 History [Bactrim DS 800-160 mg] bisacodyL [Dulcolax] 10 mg RECTAL DAILY PRN 11/24/23 11/24/23 History Allergies Allergy/AdvReac Type Severity Reaction Status Date / Time prochlorperazine Allergy Anaphylaxis Verified 11/24/23 09:59 [From Compazine] Surgical - Exam Vital Signs Temp Pulse Resp BP Pulse Ox 98.4 F 65 19 158/88 100 11/23/23 21:01 11/23/23 21:01 11/23/23 21:01 11/23/23 21:01 11/23/23 21:01 General appearance: The patient is alert, does not appear oriented, appears in no acute distress. HET: Head is normocephalic and atraumatic. Pupils are equal and reactive. Neck: Supple. Heart: Regular. Lungs: Equal expansion, normal respiratory effort. Abdomen: Soft, nontender, nondistended. Extremities: Palpable bilateral femoral pulses. Difficult to feel DP or PT pulses as patient will not hold still and continuously moving her feet. Was able to obtain bilateral PT Doppler signals. Bilateral heels with pressure wounds, does not appear infected. Neurological: Patient overall is nonverbal, does not answer any questions. She does follow simple commands. Results - Labs 11/24/23 05:52 11/24/23 05:52 Abnormal Lab Results - Last 24 Hours (Table) 11/23/23 11/23/23 11/23/23 Range/Units 09:15 09:15 23:15 WBC (4.50-10.00) X 10*3/uL RBC 2.47 L (3.80-5.40) m/uL Hgb 8.2 L D (11.4-16.0) gm/dL Hct 24.3 L (34.0-46.0) % MCV (80.0-97.0) FL MCH (27.0-32.0) pg RDW (11.5-14.5) % MPV (9.5-12.2) FL Immature Gran # (0.00-0.04) X 10*3/uL Neutrophils # (1.80-7.70) X 10*3/uL Lymphocytes # 0.4 L (1.0-4.8) k/uL Eosinophils # (0.04-0.35) X 10*3/uL Carbon Dioxide 13 L (22-30) mmol/L BUN 129 H* (7-17) mg/dL Creatinine 3.48 H (0.52-1.04) mg/dL POC Glucose (mg/dL) (70-110) mg/dL Calcium 7.4 L (8.4-10.2) mg/dL Phosphorus 4.8 H (2.5-4.5) mg/dL Total Protein 5.6 L (6.3-8.2) g/dL Albumin 2.6 L (3.5-5.0) g/dL Urine Protein (Negative) Urine Blood (Negative) Ur Leukocyte Esterase (Negative) Amorphous Sediment (None) /hpf Urine Bacteria (None) /hpf Urine Mucus (None) /hpf Stool Occult Blood Positive H (Negative) 11/24/23 11/24/23 11/24/23 Range/Units 05:25 05:52 07:14 WBC 10.50 H (4.50-10.00) X 10*3/uL RBC 2.66 L (3.80-5.40) m/uL Hgb 8.6 L (11.4-16.0) gm/dL Hct 26.5 L (34.0-46.0) % MCV 99.6 H (80.0-97.0) FL MCH 32.3 H (27.0-32.0) pg RDW 15.0 H (11.5-14.5) % MPV 12.3 H (9.5-12.2) FL Immature Gran # 0.13 H (0.00-0.04) X 10*3/uL Neutrophils # 8.64 H (1.80-7.70) X 10*3/uL Lymphocytes # 0.51 L (1.0-4.8) k/uL Eosinophils # 0.72 H (0.04-0.35) X 10*3/uL Carbon Dioxide (22-30) mmol/L BUN (7-17) mg/dL Creatinine (0.52-1.04) mg/dL POC Glucose (mg/dL) 119 H (70-110) mg/dL Calcium (8.4-10.2) mg/dL Phosphorus (2.5-4.5) mg/dL Total Protein (6.3-8.2) g/dL Albumin (3.5-5.0) g/dL Urine Protein 1+ H (Negative) Urine Blood Moderate H (Negative) Ur Leukocyte Esterase Small H (Negative) Amorphous Sediment Occasional H (None) /hpf Urine Bacteria Occasional H (None) /hpf Urine Mucus Rare H (None) /hpf Stool Occult Blood (Negative) Diabetes panel 11/23/23 Range/Units 09:15 Sodium 137 (137-145) mmol/L Potassium 4.8 (3.5-5.1) mmol/L Chloride 105 (98-107) mmol/L Carbon Dioxide 13 L (22-30) mmol/L BUN 129 H* (7-17) mg/dL Creatinine 3.48 H (0.52-1.04) mg/dL Glucose 98 (74-99) mg/dL Calcium 7.4 L (8.4-10.2) mg/dL AST 29 (14-36) U/L ALT 14 (4-34) U/L Alkaline Phosphatase 43 (38-126) U/L Total Protein 5.6 L (6.3-8.2) g/dL Albumin 2.6 L (3.5-5.0) g/dL Calcium panel 11/23/23 Range/Units 09:15 Calcium 7.4 L (8.4-10.2) mg/dL Phosphorus 4.8 H (2.5-4.5) mg/dL Albumin 2.6 L (3.5-5.0) g/dL Pituitary panel 11/23/23 Range/Units 09:15 Sodium 137 (137-145) mmol/L Potassium 4.8 (3.5-5.1) mmol/L Chloride 105 (98-107) mmol/L Carbon Dioxide 13 L (22-30) mmol/L BUN 129 H* (7-17) mg/dL Creatinine 3.48 H (0.52-1.04) mg/dL Glucose 98 (74-99) mg/dL Calcium 7.4 L (8.4-10.2) mg/dL Adrenal panel 11/23/23 Range/Units 09:15 Sodium 137 (137-145) mmol/L Potassium 4.8 (3.5-5.1) mmol/L Chloride 105 (98-107) mmol/L Carbon Dioxide 13 L (22-30) mmol/L BUN 129 H* (7-17) mg/dL Creatinine 3.48 H (0.52-1.04) mg/dL Glucose 98 (74-99) mg/dL Calcium 7.4 L (8.4-10.2) mg/dL Total Bilirubin 0.3 (0.2-1.3) mg/dL AST 29 (14-36) U/L ALT 14 (4-34) U/L Alkaline Phosphatase 43 (38-126) U/L Total Protein 5.6 L (6.3-8.2) g/dL Albumin 2.6 L (3.5-5.0) g/dL Assessment and Plan Assessment: 1. Bilateral diabetic pressure heel wounds 2. Altered mental status changes 3. Diabetes mellitus 4. Alzheimer's disease 5. Atrial fibrillation 6. Hypertension and hyperlipidemia Plan: 1. Continue to offload bilateral heels 2. Local wound care per recommendations from infectious disease 3. Continue with pain management 4. Plan for bilateral heel debridement tentatively scheduled for Wednesday Thank you for this consultation, we will continue to follow. The impression and plan of care has been dictated as directed. I performed a history and examination of this patient, discussed the same with the dictator. I agree with the dictator's note ,documented as a scribe. Any additional findings or plans will be noted.
[2023-11-24] MEDS: HYDROcodone/APAP 5-325MG 1 EACH TAB PO PRN (13:41)
[2023-11-24] MEDS: VANCOMYCIN 1,750 MG in SODIUM CHLORIDE 0.9% 500 ML 500 ML IVPB ONE (13:43)
--- NOTE | 2023-11-24 13:47 | P.NPCON ---
History of Present Illness - Reason for Consult acute renal failure - History of Present Illness Patient is a 78-year-old female who has a history of type 2 diabetes, hypertension, chronic A. fib and Alzheimer's dementia. Patient is admitted to the hospital from [facility] due to worsening mentation and increased weakness and inability to ambulate. Patient has bilateral heel wounds which have recently worsened. Patient was maintained on Bactrim as outpatient prior to admission. Blood pressure was low with systolic in the 90s. Patient is voiding and diaper. BUN at 122 today with creatinine at 3.8 and hemoglobin 8.6. Stool for occult blood is positive. Patient was maintained on Cozaar prior to admission, currently on hold Review of Systems As per HPI Past Medical History Past Medical History: Diabetes Mellitus Additional Past Medical History / Comment(s): short term memory loss History of Any Multi-Drug Resistant Organisms: ESBL, MRSA Date of last positivie culture/infection: 11/11/23 MRSA & ESBL MDRO Source:: Right Heel Past Surgical History: Hysterectomy Past Anesthesia/Blood Transfusion Reactions: No Reported Reaction Past Psychological History: No Psychological Hx Reported Smoking Status: Never smoker Past Alcohol Use History: Occasional Past Drug Use History: None Reported - Past Family History Mother History Unknown: Yes Medications and Allergies Home Medications Medication Instructions Recorded Confirmed Type Apixaban [Eliquis] 5 mg PO BID 09/22/23 11/24/23 History Cholecalciferol [Vitamin D3 (125 250 mcg PO DAILY 09/22/23 11/24/23 History Mcg = 5000 Iu)] DULoxetine HCL [Cymbalta] 30 mg PO DAILY 09/22/23 11/24/23 History Dicyclomine [Bentyl] 10 mg PO QID PRN 09/22/23 11/24/23 History Donepezil [Aricept] 10 mg PO HS 09/22/23 11/24/23 History Isosorbide Mononitrate ER [Imdur] 30 mg PO DAILY 09/22/23 11/24/23 History Levothyroxine Sodium [Synthroid] 200 mcg PO DAILY 09/22/23 11/24/23 History Losartan [Cozaar] 25 mg PO DAILY 09/22/23 11/24/23 History Memantine [Namenda] 10 mg PO DAILY 09/22/23 11/24/23 History Metoprolol Tartrate [Lopressor] 25 mg PO BID-W/MEALS 09/22/23 11/24/23 History Pioglitazone [Actos] 15 mg PO DAILY 09/22/23 11/24/23 History Potassium Chloride ER [K-Dur 20] 20 meq PO DAILY 09/22/23 11/24/23 History rOPINIRole HCL [Requip] 0.5 mg PO TID 09/22/23 11/24/23 History Acetaminophen Tab [Tylenol] 650 mg PO Q6HR PRN tab 09/28/23 11/24/23 Rx Calcium Carbonate [Tums] 1,000 mg PO Q4HR PRN tab 09/28/23 11/24/23 Rx Gabapentin [Neurontin] 100 mg PO BID #3 cap 09/28/23 11/24/23 Rx Mag Hydrox/Al Hydrox/Simeth 15 ml PO Q6HR PRN ml 09/28/23 11/24/23 Rx [Maalox] Melatonin 3 mg PO HS PRN tab 09/28/23 11/24/23 Rx Atorvastatin [Lipitor] 20 mg PO HS 11/24/23 11/24/23 History Ensure Enlive 237 ml PO DAILY@1200 11/24/23 11/24/23 History Furosemide [Lasix] 80 mg PO DAILY 11/24/23 11/24/23 History HYDROcodone/APAP 7.5-325MG [[place] 1 tab PO Q6H PRN 11/24/23 11/24/23 History 7.5-325] INSULIN ASPART (NovoLOG) [NovoLOG See Protocol SQ ACHS 11/24/23 11/24/23 History (formulary)] Tj Packet 1 packet PO BID-W/MEALS 11/24/23 11/24/23 History Lidocaine 5% Cream 1 applic TOPICAL WE 11/24/23 11/24/23 History Magnesium Hydroxide [Milk of 7,200 mg PO DAILY PRN 11/24/23 11/24/23 History Magnesia Concentrate] Na Phos,M-B/Na Phos,Di-Ba [Fleet 133 ml RECTAL DAILY PRN 11/24/23 11/24/23 History Adult] Sennosides [Senokot] 8.6 mg PO BID 11/24/23 11/24/23 History Sulfamethoxazole/Trimethoprim 1 tab PO BID 11/24/23 11/24/23 History [Bactrim DS 800-160 mg] bisacodyL [Dulcolax] 10 mg RECTAL DAILY PRN 11/24/23 11/24/23 History Allergies Allergy/AdvReac Type Severity Reaction Status Date / Time prochlorperazine Allergy Anaphylaxis Verified 11/24/23 09:59 [From Compazine] Physical Exam Vitals: Vital Signs Temp Pulse Pulse Resp BP BP Pulse Ox 11/24/23 12:03 97.4 F L 89 16 122/46 85 L 11/24/23 11:11 92 11/24/23 10:58 88 11/24/23 09:18 98.2 F 11/24/23 08:02 96 11/24/23 07:52 92 11/24/23 07:12 101.6 F H 91 20 92/34 96 11/24/23 01:16 97.7 F 79 16 97/46 90 L 11/24/23 00:45 79 16 11/24/23 00:15 70 16 97/48 100 11/23/23 23:00 72 18 115/71 98 11/23/23 21:51 66 11/23/23 21:47 64 11/23/23 21:01 98.4 F 65 19 158/88 100 Intake and Output 11/23/23 11/24/23 11/24/23 22:59 06:59 14:59 Output Total 160 Balance -160 Output: Urine 160 Other: Voiding Method Diaper Diaper External Catheter External Catheter Weight 90.718 kg 90.718 kg 90.718 kg Patient is awake, no acute distress. She is complaining of feeling cold. Examination of the heart S1 and S2 Examination of the lungs bilateral breath sounds are heard with decreased breath sounds at the bases Abdomen is soft nontender Examination of lower extremities shows no edema. Bilateral heel wounds currently dressed TECHNICAL PRODUCER exam shows patient has been moving all her extremities. No asterixis noted. Results - Lab Results Most recent lab results Calcium 8.7 mg/dL (8.7-10.3) 11/24/23 05:52 Phosphorus 4.8 mg/dL (2.5-4.5) H 11/23/23 09:15 Magnesium 2.1 mg/dL (1.6-2.3) 11/23/23 09:15 11/24/23 05:52 11/24/23 05:52 Assessment and Plan Assessment: 1. Acute kidney injury ATN secondary to hypotension and underlying infection. Serum creatinine also elevated from use of Bactrim. B UN is disproportionately elevated secondary to underlying GI bleed. Rule out urine retention. 2. Anion gap metabolic acidosis secondary to acute kidney injury. Lactic acid is not elevated 3. Anemia with positive stool for occult blood. Check iron profile 4. Bilateral heel wounds with wound cultures as outpatient growing Proteus, E. coli and MSSA 5. History of UTI with E. coli on 09/23/2023 Plan: Continue with IV fluids Check bladder scan Check ultrasound of the kidneys Recommend to DC vancomycin given the significant acute kidney injury. Change IV fluids to IV bicarb If there is no improvement in renal function patient will need dialysis. Continue with IV antibiotics Continue to hold angiotensin receptor blockers Thank you for the consultation. We will continue to follow the patient with you during her hospitalization.
[2023-11-24] MEDS: COLLAGENASE 250 UNIT/GM OINTMENT 30 GM TUBE TOPICAL SCH (15:36)
[2023-11-24] MEDS: DEXTROSE 5% IN WATER 1,000 ML with SODIUM BICARB (1 MEQ/ML) 150 ML IV SCH (16:31)
--- NOTE | 2023-11-24 17:17 | US ---
EXAMINATION TYPE: US kidneys/renal and bladder DATE OF EXAM: 11/24/2023 COMPARISON: 09/22/2023 CLINICAL INDICATION: Female, 78 years old with history of SETH; Abnormal labs. Poor historian. Exter nal Jaimes cath. EXAM MEASUREMENTS: Right Kidney: 9.2 x 4.2 x 4.2 cm Left Kidney: 8.4 x 4.1 x 4.0 cm Estimated Right Kidney: Medial anechoic lesion at hilum = 1.7 x 1.6 cm, possible parapelvic cyst though not wel l seen previously. No calyceal dilatation to suggest hydronephrosis. Left Kidney: Limited visualization due to overlying bowel gas. No evident hydronephrosis. Bladder: Underdistention limits its evaluation. Bilateral Jets not seen IMPRESSION: No hydronephrosis. A possible 1.7 cm parapelvic cyst right kidney though not clearly seen on the cruzito ent's prior 09/22/2023 exam. Consider short interval follow-up.
[2023-11-24 17:46] LABS: Glucose,Whole Blood 113 mg/dL (70-110)
[2023-11-24] MEDS: GABAPENTIN 100 MG CAP PO SCH (20:02)
[2023-11-24 20:13] LABS: Glucose,Whole Blood 137 mg/dL (70-110)
[2023-11-24 20:55] LABS: % Iron Saturation 12.71 (12.00-45.00)
--- NOTE | 2023-11-24 21:50 | P.CONS ---
History of Present Illness - Reason for Consult Consult date: 11/24/23 Infected wound both feet Requesting physician: Carmelo Woods - Chief Complaint Nonhealing wound to bilateral heel x weeks - History of Present Illness Patient is a 78-year-old female with a past medical history significant for diabetes mellitus short-term memory loss patient is a [facility] resident patient did have a nonhealing wound to bilateral heel area and apparently patient did have a outpatient culture done on 11/11/2023 and grew Proteus E. coli and MRSA E. coli was ESBL apparently the patient has been treated with the Bactrim DS patient did have a routine blood work done and noticed to have a elevated BUN/creatinine worsening anemia for the patient has been sent to the hospital for evaluation and treatment on presentation to the hospital patient was afebrile initially however she did spike a fever of 101.6 F this morning, patient was not tachycardic or hypotensive mildly hypoxic currently on 3 L nasal cannula oxygen patient did have white count 10.50 BUN was 129 creatinine 3.48 urine has been negative influenza RSV COVID testing has been negative patient did have a chest x-ray left basilar airspace disease may represent developing pneumonia patient was started on vancomycin and meropenem infectious disease was consulted for further management of her therapy patient at time my evaluation is awake alert but elevated good historian patient is currently breathing comfortably denies any chest pain or cough no abdominal pain or diarrhea has been complaining of pain to bilateral heel wound area however is unable to quantify it any further Review of Systems Positive points has been mentioned in HPI complete review could not be obtained because of his underlying mental status Past Medical History Past Medical History: Diabetes Mellitus Additional Past Medical History / Comment(s): short term memory loss History of Any Multi-Drug Resistant Organisms: ESBL, MRSA Year Discovered:: 11/11/23 MRSA & ESBL MDRO Source:: Right Heel Past Surgical History: Hysterectomy Past Anesthesia/Blood Transfusion Reactions: No Reported Reaction Past Psychological History: No Psychological Hx Reported Smoking Status: Never smoker Past Alcohol Use History: Occasional Past Drug Use History: None Reported - Past Family History Mother History Unknown: Yes Medications and Allergies Home Medications Medication Instructions Recorded Confirmed Type Cholecalciferol [Vitamin D3 (125 250 mcg PO DAILY 09/22/23 11/24/23 History Mcg = 5000 Iu)] DULoxetine HCL [Cymbalta] 30 mg PO DAILY 09/22/23 11/24/23 History Dicyclomine [Bentyl] 10 mg PO QID PRN 09/22/23 11/24/23 History Donepezil [Aricept] 10 mg PO HS 09/22/23 11/24/23 History Isosorbide Mononitrate ER [Imdur] 30 mg PO DAILY 09/22/23 11/24/23 History Levothyroxine Sodium [Synthroid] 200 mcg PO DAILY 09/22/23 11/24/23 History Memantine [Namenda] 10 mg PO DAILY 09/22/23 11/24/23 History Metoprolol Tartrate [Lopressor] 25 mg PO BID-W/MEALS 09/22/23 11/24/23 History rOPINIRole HCL [Requip] 0.5 mg PO TID 09/22/23 11/24/23 History Acetaminophen Tab [Tylenol] 650 mg PO Q6HR PRN tab 09/28/23 11/24/23 Rx Calcium Carbonate [Tums] 1,000 mg PO Q4HR PRN tab 09/28/23 11/24/23 Rx Gabapentin [Neurontin] 100 mg PO BID #3 cap 09/28/23 11/24/23 Rx Mag Hydrox/Al Hydrox/Simeth 15 ml PO Q6HR PRN ml 09/28/23 11/24/23 Rx [Maalox] Melatonin 3 mg PO HS PRN tab 09/28/23 11/24/23 Rx Atorvastatin [Lipitor] 20 mg PO HS 11/24/23 11/24/23 History Ensure Enlive 237 ml PO DAILY@1200 11/24/23 11/24/23 History Furosemide [Lasix] 80 mg PO DAILY 11/24/23 11/24/23 History Tj Packet 1 packet PO BID-W/MEALS 11/24/23 11/24/23 History Lidocaine 5% Cream 1 applic TOPICAL WE 11/24/23 11/24/23 History Magnesium Hydroxide [Milk of 7,200 mg PO DAILY PRN 11/24/23 11/24/23 History Magnesia Concentrate] Sennosides [Senokot] 8.6 mg PO BID 11/24/23 11/24/23 History bisacodyL [Dulcolax] 10 mg RECTAL DAILY PRN 11/24/23 11/24/23 History Albuterol Nebulized [Ventolin 2.5 mg INHALATION RT-QID ml 11/30/23 Rx Nebulized] Apixaban [Eliquis] 2.5 mg PO BID #0 11/30/23 11/24/23 Rx Ertapenem [INVanz] 1 gm IVPB Q24H #40 each 11/30/23 Rx HYDROcodone/APAP 7.5-325MG [Edison 1 tab PO Q6H PRN #20 tab 11/30/23 Rx 7.5-325] INSULIN ASPART (NovoLOG) [NovoLOG 0 unit SQ ACHS each 11/30/23 Rx (formulary)] Pantoprazole [Protonix] 40 mg PO AC-BRKFST tab 11/30/23 Rx Allergies Allergy/AdvReac Type Severity Reaction Status Date / Time prochlorperazine Allergy Anaphylaxis Verified 11/24/23 09:59 [From Compazine] Physical Exam Vitals: Vital Signs Temp Pulse Pulse Resp BP BP Pulse Ox 11/24/23 09:18 98.2 F 11/24/23 08:02 96 11/24/23 07:52 92 11/24/23 07:12 101.6 F H 91 20 92/34 96 11/24/23 01:16 97.7 F 79 16 97/46 90 L 11/24/23 00:45 79 16 11/24/23 00:15 70 16 97/48 100 11/23/23 23:00 72 18 115/71 98 11/23/23 21:51 66 11/23/23 21:47 64 11/23/23 21:01 98.4 F 65 19 158/88 100 Intake and Output 11/23/23 11/24/23 11/24/23 22:59 06:59 14:59 Output Total 160 Balance -160 Output: Urine 160 Other: Voiding Method Diaper External Catheter Weight 90.718 kg 90.718 kg GENERAL DESCRIPTION: Elderly female lying in bed, no distress. No tachypnea or accessory muscle of respiration use. HEENT: Shows Pallor , no scleral icterus. Oral mucous membrane is dry. No pharyngeal erythema or thrush NECK: Trachea central, no thyromegaly. LUNGS: Unlabored breathing. Clear to auscultation anteriorly. No wheeze or crackle. HEART: S1, S2, regular rate and rhythm. No loud murmur ABDOMEN: Soft, no tenderness , guarding or rigidity, no organomegaly EXTREMITIES: Bilateral heel with the wound with some necrotic tissue and slough tissue SKIN: No rash, no masses palpable. NEUROLOGICAL: The patient is awake, but nonverbal no agitation was noticed Results CBC & Chem 7: 11/30/23 10:42 11/30/23 10:42 Labs: Abnormal Lab Results - Last 24 Hours (Table) 11/23/23 11/23/23 11/23/23 Range/Units 09:15 09:15 23:15 WBC (4.50-10.00) X 10*3/uL RBC 2.47 L (3.80-5.40) m/uL Hgb 8.2 L D (11.4-16.0) gm/dL Hct 24.3 L (34.0-46.0) % MCV (80.0-97.0) FL MCH (27.0-32.0) pg RDW (11.5-14.5) % MPV (9.5-12.2) FL Immature Gran # (0.00-0.04) X 10*3/uL Neutrophils # (1.80-7.70) X 10*3/uL Lymphocytes # 0.4 L (1.0-4.8) k/uL Eosinophils # (0.04-0.35) X 10*3/uL Carbon Dioxide 13 L (22-30) mmol/L Anion Gap (4.00-12.00) mmol/L BUN 129 H* (7-17) mg/dL Creatinine 3.48 H (0.52-1.04) mg/dL Est GFR (CKD-EPI) (>=60) BUN/Creatinine Ratio (12.00-20.00) Ratio POC Glucose (mg/dL) (70-110) mg/dL Calcium 7.4 L (8.4-10.2) mg/dL Phosphorus 4.8 H (2.5-4.5) mg/dL Total Bilirubin (0.3-1.2) mg/dL AST (13-35) U/L NT-Pro-B Natriuret Pep (0-450) pg/mL Total Protein 5.6 L (6.3-8.2) g/dL Albumin 2.6 L (3.5-5.0) g/dL Albumin/Globulin Ratio (1.60-3.17) Ratio Urine Protein (Negative) Urine Blood (Negative) Ur Leukocyte Esterase (Negative) Amorphous Sediment (None) /hpf Urine Bacteria (None) /hpf Urine Mucus (None) /hpf Stool Occult Blood Positive H (Negative) 11/24/23 11/24/23 11/24/23 Range/Units 05:25 05:52 05:52 WBC 10.50 H (4.50-10.00) X 10*3/uL RBC 2.66 L (3.80-5.40) m/uL Hgb 8.6 L (11.4-16.0) gm/dL Hct 26.5 L (34.0-46.0) % MCV 99.6 H (80.0-97.0) FL MCH 32.3 H (27.0-32.0) pg RDW 15.0 H (11.5-14.5) % MPV 12.3 H (9.5-12.2) FL Immature Gran # 0.13 H (0.00-0.04) X 10*3/uL Neutrophils # 8.64 H (1.80-7.70) X 10*3/uL Lymphocytes # 0.51 L (1.0-4.8) k/uL Eosinophils # 0.72 H (0.04-0.35) X 10*3/uL Carbon Dioxide 16.4 L (22-30) mmol/L Anion Gap 15.60 H (4.00-12.00) mmol/L BUN 120.0 A* (7-17) mg/dL Creatinine 3.8 H (0.52-1.04) mg/dL Est GFR (CKD-EPI) 12 L (>=60) BUN/Creatinine Ratio 31.58 H (12.00-20.00) Ratio POC Glucose (mg/dL) (70-110) mg/dL Calcium (8.4-10.2) mg/dL Phosphorus (2.5-4.5) mg/dL Total Bilirubin <0.2 L (0.3-1.2) mg/dL AST 50 H (13-35) U/L NT-Pro-B Natriuret Pep 6588 H (0-450) pg/mL Total Protein 6.1 L (6.3-8.2) g/dL Albumin 3.0 L (3.5-5.0) g/dL Albumin/Globulin Ratio 0.97 L (1.60-3.17) Ratio Urine Protein 1+ H (Negative) Urine Blood Moderate H (Negative) Ur Leukocyte Esterase Small H (Negative) Amorphous Sediment Occasional H (None) /hpf Urine Bacteria Occasional H (None) /hpf Urine Mucus Rare H (None) /hpf Stool Occult Blood (Negative) 11/24/23 Range/Units 07:14 WBC (4.50-10.00) X 10*3/uL RBC (3.80-5.40) m/uL Hgb (11.4-16.0) gm/dL Hct (34.0-46.0) % MCV (80.0-97.0) FL MCH (27.0-32.0) pg RDW (11.5-14.5) % MPV (9.5-12.2) FL Immature Gran # (0.00-0.04) X 10*3/uL Neutrophils # (1.80-7.70) X 10*3/uL Lymphocytes # (1.0-4.8) k/uL Eosinophils # (0.04-0.35) X 10*3/uL Carbon Dioxide (22-30) mmol/L Anion Gap (4.00-12.00) mmol/L BUN (7-17) mg/dL Creatinine (0.52-1.04) mg/dL Est GFR (CKD-EPI) (>=60) BUN/Creatinine Ratio (12.00-20.00) Ratio POC Glucose (mg/dL) 119 H (70-110) mg/dL Calcium (8.4-10.2) mg/dL Phosphorus (2.5-4.5) mg/dL Total Bilirubin (0.3-1.2) mg/dL AST (13-35) U/L NT-Pro-B Natriuret Pep (0-450) pg/mL Total Protein (6.3-8.2) g/dL Albumin (3.5-5.0) g/dL Albumin/Globulin Ratio (1.60-3.17) Ratio Urine Protein (Negative) Urine Blood (Negative) Ur Leukocyte Esterase (Negative) Amorphous Sediment (None) /hpf Urine Bacteria (None) /hpf Urine Mucus (None) /hpf Stool Occult Blood (Negative) Assessment and Plan (1) MRSA (methicillin resistant staph aureus) culture positive Current Visit: Yes Status: Acute Code(s): Z22.322 - CARRIER OR SUSPECTED CARRIER OF METHICILLIN RESIS STAPH SNOMED Code(s): 633602191 (2) Pressure ulcer of both heels, unstageable Current Visit: Yes Status: Acute Code(s): L89.610 - PRESSURE ULCER OF RIGHT HEEL, UNSTAGEABLE; L89.620 - PRESSURE ULCER OF LEFT HEEL, UNSTAGEABLE SNOMED Code(s): 933606931 Plan: 1patient with bilateral heel unstageable pressure ulcer infected with outpa tient culture positive for ESBL E. coli MRSA and Proteus treated with Bactrim DS now being admitted to the hospital with worsening of the kidney function more likely related to the Bactrim DS which has been discontinued 2-vascular surgery on the case currently undergoing vascular workup and will patrizia efit from surgical debridement and deep culture 3-we will check inflammatory markers 4-keeping in mind her kidney function high risk of nephrotoxicity we will discontinue vancomycin and that daptomycin continue with the meropenem at the bedside question concern answered We will follow on clinical condition and cultures to further adjust medication if needed Thank you for this consultation we will follow the patient along with you Dictation was produced using [employer] dictation software. please excuse any grammatical, word or spelling errors. Time with Patient: Greater than 30
[2023-11-24] MEDS ORDERED: AZITHROMYCIN 500 MG in SODIUM CHLORIDE 0.9% 250 ML IVPB SCH (23:00)
[2023-11-25] MEDS: SODIUM CHLORIDE 0.9% 500 ML 500 ML IV ONE ×2 (07:00→08:00)
[2023-11-25] MEDS: fentaNYL (PF) 50 MCG/1 ML VIAL IVP ONE (07:15)
[2023-11-25 07:30] LABS: Glucose,Whole Blood 115 mg/dL (70-110)
[2023-11-25] MEDS ORDERED: PHENYLEPHRINE 10 MG/ML VIAL ONE (07:35)
[2023-11-25] MEDS ORDERED: ETOMIDATE 2 MG/ML 10 ML VIAL ONE (07:35)
[2023-11-25] MEDS ORDERED: KETAMINE HCL IN 0.9 % NACL 50 MG/5 ML SYRINGE ONE (07:35)
[2023-11-25] MEDS ORDERED: LIDOCAINE 1% INJ 10MG/ML (20 ML MDV) ONE (07:35)
[2023-11-25] MEDS ORDERED: VANCOMYCIN 1,750 MG in SODIUM CHLORIDE 0.9% 500 ML 500 ML IVPB ONE (08:00)
--- NOTE | 2023-11-25 08:48 | P.OP ---
Date of Procedure: 11/25/23 Preoperative Diagnosis: Unstageable bilateral heel wounds. Postoperative Diagnosis: Stage III bilateral heel wounds. Left heel wound measuring 3.5 x 3.75 cm x 3 mm deep while the right heel wound measured 4.5 x 5.0 cm x 3 mm deep. Procedure(s) Performed: Sharp excisional debridement bilateral heel wounds. Implants: None. Anesthesia: CARINEA Surgeon: Andrés Torrez Estimated Blood Loss (ml): 2 Pathology: other (Tissue culture) Condition: stable Disposition: no change Indications for Procedure: Patient is a 78-year-old female who presented with bilateral heel wounds which are decubitus in nature. The wounds are unstageable and patient is in need of surgical debridement and staging for ongoing medical care. Description of Procedure: Patient was brought the op room placed in the supine position administered general inhalational anesthesia delivered by the department of anesthesiology. Patient was then placed in the left lateral decubitus position and both feet were sterilely prepped and draped in usual manner. Beginning on the right the heel wound was measured and this was found to measure 4.5 x 5 cm in length and width and 3 mm in depth. The left heel wound measured 3.5 x 3.75 cm in length and width and 3 mm in depth. Both wounds were debrided of nonviable tissue with a surgical scalpel and scrub brush. There is no evidence of undermining or tunneling. The wound is extended down to the level of the fascia bilaterally. Wounds were then appropriate dressed and offloaded. Patient tolerated the procedure well and was transported to the recovery area in satisfactory and stable condition.
[2023-11-25 09:00] LABS: Glucose,Whole Blood 110 mg/dL (70-110)
--- NOTE | 2023-11-25 09:48 | US ---
EXAMINATION TYPE: US arterial LE multi level DATE OF EXAM: 11/24/2023 12:39 PM CLINICAL INDICATION: Female, 78 years old with history of Nonhealing wounds; Bilateral nonhealing wou nds at the heel. History of: Smoker: No Hypertension: Yes Diabetic: Yes Hyperlipidemia: Yes TIA/CVA: No Previous Vascular Surgery: No CAD: No CT: No Vascular Ulcers: Bilateral heels Right Brachial Pressure: 122 Left Brachial Pressure: Not obtained due to IV Ankle-Brachial Indices: Right: 0.67 Left: 0.55 Toe Brachial Indices: Unable to obtain TBIs due to constant patient movement and intolerance Suboptimal study due to patient movement and non-cooperation. Attempted to work up the bilateral legs but patient was unable to tolerate pressures. IMPRESSION: Severe peripheral vascular disease by ankle brachial indices.
[2023-11-25 10:51] LABS: HCT 24.6 % (37.2-46.3); HGB 8.1 g/dL (12.0-15.0); MCH 32.1 pg (27.0-32.0); MCHC 32.9 g/dL (32.0-37.0); MCV 97.6 FL (80.0-97.0); Mean Platelet Volume 12.4 FL (9.5-12.2); NRBC Per 100 WBC 0 X 10*3/uL (0.00-0.01); Platelet Count 165 X 10*3/uL (140-440); RBC 2.52 X 10*6/uL (4.10-5.20); WBC 7.55 X 10*3/uL (4.50-10.00)
[2023-11-25 11:08] LABS: NT-Pro-B-Type Natriuretic Pept 3874 pg/mL (0-450)
[2023-11-25 11:29] LABS: ALT 33 U/L (8-44); AST 134 U/L (13-35); Albumin 2.7 g/dL (3.8-4.9); Alkaline Phosphatase 36 U/L (41-126); BUN/Creat Ratio 35.07 Ratio (12.00-20.00); Blood Urea Nitrogen 98.2 mg/dL (9.0-27.0); Calcium 8.2 mg/dL (8.7-10.3); Carbon Dioxide 20.3 mmol/L (21.6-31.8); Chloride 103 mmol/L (96-109); Glucose 121 mg/dL (70-110); Potassium 3.8 mmol/L (3.5-5.5); Sodium 137 mmol/L (135-145); Total Bilirubin <0.2 mg/dL (0.3-1.2); Total Protein 5.7 g/dL (6.2-8.2)
[2023-11-25 11:45] LABS: Erythrocyte Sedimentation Rate 57 mm/Hr (0-30)
[2023-11-25 12:06] LABS: Glucose,Whole Blood 130 mg/dL (70-110)
--- NOTE | 2023-11-25 13:24 | P.PN ---
Subjective Patient is seen for follow-up for acute kidney injury. Currently maintained on IV fluids. Mentation has improved significantly. Renal function has improved as well with creatinine down to 2.8. Patient has had good urine output. 1300 mL charted for last 24 hours. Objective - Vital Signs Vital signs: Vital Signs Temp 98.7 F 11/25/23 12:06 Pulse 80 11/25/23 12:27 Resp 24 11/25/23 12:06 BP 117/57 11/25/23 12:06 Pulse Ox 96 11/25/23 12:06 FiO2 Intake & Output 11/24/23 11/25/23 11/25/23 18:59 06:59 18:59 Intake Total 525 Output Total 300 1000 755 Balance -300 -1000 -230 Weight 90.718 kg Intake: IV 525 Output: Urine 300 1000 750 Estimated Blood Loss 5 Other: Voiding Method Diaper Diaper External Catheter Indwelling Catheter - Exam Patient is awake, no acute distress. Mentation is much improved. Examination of the heart S1 and S2 Examination of the lungs bilateral breath sounds are heard with decreased breath sounds at the bases Abdomen is soft nontender Examination of lower extremities shows no edema. Bilateral heel wounds currently dressed RESOURCE PARAPROFESSIONAL exam shows patient has been moving all her extremities. No asterixis noted. - Labs CBC & Chem 7: 11/25/23 06:05 11/25/23 06:05 Labs: Abnormal Lab Results - Last 24 Hours (Table) 11/24/23 11/24/23 11/24/23 Range/Units 05:52 17:45 20:11 RBC (4.10-5.20) X 10*6/uL Hgb (12.0-15.0) g/dL Hct (37.2-46.3) % MCV (80.0-97.0) FL MCH (27.0-32.0) pg RDW (11.5-14.5) % MPV (9.5-12.2) FL ESR (0-30) mm/Hr Carbon Dioxide (21.6-31.8) mmol/L Anion Gap (4.00-12.00) mmol/L BUN (9.0-27.0) mg/dL Creatinine (0.6-1.5) mg/dL Est GFR (CKD-EPI) (>=60) BUN/Creatinine Ratio (12.00-20.00) Ratio Glucose (70-110) mg/dL POC Glucose (mg/dL) 113 H 137 H (70-110) mg/dL Calcium (8.7-10.3) mg/dL Iron 23 L (50-170) UG/DL TIBC 181 L (228-460) UG/DL Transferrin 129.0 L (204.0-354.0) mg/dL Total Bilirubin (0.3-1.2) mg/dL AST (13-35) U/L Alkaline Phosphatase (41-126) U/L NT-Pro-B Natriuret Pep (0-450) pg/mL Total Protein (6.2-8.2) g/dL Albumin (3.8-4.9) g/dL Albumin/Globulin Ratio (1.60-3.17) Ratio 11/25/23 11/25/23 11/25/23 Range/Units 06:05 06:05 07:23 RBC 2.52 L (4.10-5.20) X 10*6/uL Hgb 8.1 L (12.0-15.0) g/dL Hct 24.6 L (37.2-46.3) % MCV 97.6 H (80.0-97.0) FL MCH 32.1 H (27.0-32.0) pg RDW 15.0 H (11.5-14.5) % MPV 12.4 H (9.5-12.2) FL ESR 57 H (0-30) mm/Hr Carbon Dioxide 20.3 L (21.6-31.8) mmol/L Anion Gap 13.70 H (4.00-12.00) mmol/L BUN 98.2 H (9.0-27.0) mg/dL Creatinine 2.8 H (0.6-1.5) mg/dL Est GFR (CKD-EPI) 17 L (>=60) BUN/Creatinine Ratio 35.07 H (12.00-20.00) Ratio Glucose 121 H (70-110) mg/dL POC Glucose (mg/dL) 115 H (70-110) mg/dL Calcium 8.2 L (8.7-10.3) mg/dL Iron (50-170) UG/DL TIBC (228-460) UG/DL Transferrin (204.0-354.0) mg/dL Total Bilirubin <0.2 L (0.3-1.2) mg/dL AST 134 H (13-35) U/L Alkaline Phosphatase 36 L (41-126) U/L NT-Pro-B Natriuret Pep 3874 H (0-450) pg/mL Total Protein 5.7 L (6.2-8.2) g/dL Albumin 2.7 L (3.8-4.9) g/dL Albumin/Globulin Ratio 0.90 L (1.60-3.17) Ratio 11/25/23 Range/Units 12:04 RBC (4.10-5.20) X 10*6/uL Hgb (12.0-15.0) g/dL Hct (37.2-46.3) % MCV (80.0-97.0) FL MCH (27.0-32.0) pg RDW (11.5-14.5) % MPV (9.5-12.2) FL ESR (0-30) mm/Hr Carbon Dioxide (21.6-31.8) mmol/L Anion Gap (4.00-12.00) mmol/L BUN (9.0-27.0) mg/dL Creatinine (0.6-1.5) mg/dL Est GFR (CKD-EPI) (>=60) BUN/Creatinine Ratio (12.00-20.00) Ratio Glucose (70-110) mg/dL POC Glucose (mg/dL) 130 H (70-110) mg/dL Calcium (8.7-10.3) mg/dL Iron (50-170) UG/DL TIBC (228-460) UG/DL Transferrin (204.0-354.0) mg/dL Total Bilirubin (0.3-1.2) mg/dL AST (13-35) U/L Alkaline Phosphatase (41-126) U/L NT-Pro-B Natriuret Pep (0-450) pg/mL Total Protein (6.2-8.2) g/dL Albumin (3.8-4.9) g/dL Albumin/Globulin Ratio (1.60-3.17) Ratio Microbiology - Last 24 Hours (Table) 11/23/23 22:50 Blood Culture - Preliminary Blood 11/23/23 22:35 Blood Culture - Preliminary Blood Assessment and Plan Assessment: 1. Acute kidney injury ATN secondary to hypotension and underlying infection. Serum creatinine also elevated from use of Bactrim. B UN is disproportionately elevated secondary to underlying GI bleed. UA shows 1+ protein and moderate blood. No obstructive uropathy noted on ultrasound. 2. Anion gap metabolic acidosis secondary to acute kidney injury. Lactic acid is not elevated 3. Anemia with positive stool for occult blood. Check iron profile 4. Bilateral heel wounds with wound cultures as outpatient growing Proteus, E. coli and MSSA 5. History of UTI with E. coli on 09/23/2023 Plan: Continue with IV bicarb Continue with IV antibiotics Continue to hold angiotensin receptor blockers Thank you for the consultation. We will continue to follow the patient with you during her hospitalization.
--- NOTE | 2023-11-25 15:35 | P.PN ---
Subjective Progress Note Date: 11/25/23 Principal diagnosis: Reason for follow-up is bilateral heel infected pressure ulcer Patient is a 78-year-old female with a past medical history significant for diabetes mellitus short-term memory loss patient is a [facility] resident patient did have a nonhealing wound to bilateral heel area and apparently patient did have a outpatient culture done on 11/11/2023 and grew Proteus E. coli and MRSA E. coli was ESBL treated with the Bactrim DS was admitted to hospital worsening kidney function. Patient s/p surgical debridement of bilateral heel wound by vascular surgery mention extending down to the fascia only. On today's visit that is 11/24/2023,the patient did spike a feve this morning of 101.1 F patient is afebrile this afternoon, the patient is breathing c omfortably on 3 L nasal cannula oxygen patient is awake but not good historian no changes reported by the no vomiting or diarrhea has been reported. Patient white count is down to 7.55, creatinine is 2.8 blood cultures pending Objective - Vital Signs Vital signs: Vital Signs Temp 98.7 F 11/25/23 12:06 Pulse 80 11/25/23 12:27 Resp 24 11/25/23 12:06 BP 117/57 11/25/23 12:06 Pulse Ox 96 11/25/23 12:06 FiO2 Intake & Output 11/24/23 11/25/23 11/25/23 18:59 06:59 18:59 Intake Total 525 Output Total 300 1000 755 Balance -300 -1000 -230 Weight 90.718 kg Intake: IV 525 Output: Urine 300 1000 750 Estimated Blood Loss 5 Other: Voiding Method Diaper Diaper Diaper External Catheter Indwelling Catheter Indwelling Catheter - Exam GENERAL DESCRIPTION: An elderly female lying in bed in no distress RESPIRATORY SYSTEM: Unlabored breathing , decreased breath sounds at bases HEART: S1 S2 regular rate and rhythm , ABDOMEN: Soft , no tenderness EXTREMITIES: Bilateral heels are currently dressed - Labs CBC & Chem 7: 11/25/23 06:05 11/25/23 06:05 Labs: Abnormal Lab Results - Last 24 Hours (Table) 11/24/23 11/24/23 11/24/23 Range/Units 05:52 17:45 20:11 RBC (4.10-5.20) X 10*6/uL Hgb (12.0-15.0) g/dL Hct (37.2-46.3) % MCV (80.0-97.0) FL MCH (27.0-32.0) pg RDW (11.5-14.5) % MPV (9.5-12.2) FL ESR (0-30) mm/Hr Carbon Dioxide (21.6-31.8) mmol/L Anion Gap (4.00-12.00) mmol/L BUN (9.0-27.0) mg/dL Creatinine (0.6-1.5) mg/dL Est GFR (CKD-EPI) (>=60) BUN/Creatinine Ratio (12.00-20.00) Ratio Glucose (70-110) mg/dL POC Glucose (mg/dL) 113 H 137 H (70-110) mg/dL Calcium (8.7-10.3) mg/dL Iron 23 L (50-170) UG/DL TIBC 181 L (228-460) UG/DL Transferrin 129.0 L (204.0-354.0) mg/dL Total Bilirubin (0.3-1.2) mg/dL AST (13-35) U/L Alkaline Phosphatase (41-126) U/L NT-Pro-B Natriuret Pep (0-450) pg/mL Total Protein (6.2-8.2) g/dL Albumin (3.8-4.9) g/dL Albumin/Globulin Ratio (1.60-3.17) Ratio 11/25/23 11/25/23 11/25/23 Range/Units 06:05 06:05 07:23 RBC 2.52 L (4.10-5.20) X 10*6/uL Hgb 8.1 L (12.0-15.0) g/dL Hct 24.6 L (37.2-46.3) % MCV 97.6 H (80.0-97.0) FL MCH 32.1 H (27.0-32.0) pg RDW 15.0 H (11.5-14.5) % MPV 12.4 H (9.5-12.2) FL ESR 57 H (0-30) mm/Hr Carbon Dioxide 20.3 L (21.6-31.8) mmol/L Anion Gap 13.70 H (4.00-12.00) mmol/L BUN 98.2 H (9.0-27.0) mg/dL Creatinine 2.8 H (0.6-1.5) mg/dL Est GFR (CKD-EPI) 17 L (>=60) BUN/Creatinine Ratio 35.07 H (12.00-20.00) Ratio Glucose 121 H (70-110) mg/dL POC Glucose (mg/dL) 115 H (70-110) mg/dL Calcium 8.2 L (8.7-10.3) mg/dL Iron (50-170) UG/DL TIBC (228-460) UG/DL Transferrin (204.0-354.0) mg/dL Total Bilirubin <0.2 L (0.3-1.2) mg/dL AST 134 H (13-35) U/L Alkaline Phosphatase 36 L (41-126) U/L NT-Pro-B Natriuret Pep 3874 H (0-450) pg/mL Total Protein 5.7 L (6.2-8.2) g/dL Albumin 2.7 L (3.8-4.9) g/dL Albumin/Globulin Ratio 0.90 L (1.60-3.17) Ratio // Range/Units 12:04 RBC (4.10-5.20) X 10*6/uL Hgb (12.0-15.0) g/dL Hct (37.2-46.3) % MCV (80.0-97.0) FL MCH (27.0-32.0) pg RDW (11.5-14.5) % MPV (9.5-12.2) FL ESR (0-30) mm/Hr Carbon Dioxide (21.6-31.8) mmol/L Anion Gap (4.00-12.00) mmol/L BUN (9.0-27.0) mg/dL Creatinine (0.6-1.5) mg/dL Est GFR (CKD-EPI) (>=60) BUN/Creatinine Ratio (12.00-20.00) Ratio Glucose (70-110) mg/dL POC Glucose (mg/dL) 130 H (70-110) mg/dL Calcium (8.7-10.3) mg/dL Iron (50-170) UG/DL TIBC (228-460) UG/DL Transferrin (204.0-354.0) mg/dL Total Bilirubin (0.3-1.2) mg/dL AST (13-35) U/L Alkaline Phosphatase (41-126) U/L NT-Pro-B Natriuret Pep (0-450) pg/mL Total Protein (6.2-8.2) g/dL Albumin (3.8-4.9) g/dL Albumin/Globulin Ratio (1.60-3.17) Ratio Microbiology - Last 24 Hours (Table) 11/23/23 22:50 Blood Culture - Preliminary Blood 11/23/23 22:35 Blood Culture - Preliminary Blood Assessment and Plan (1) Pressure ulcer of both heels, unstageable Current Visit: Yes Status: Acute Code(s): L89.610 - PRESSURE ULCER OF RIGHT HEEL, UNSTAGEABLE; L89.620 - PRESSURE ULCER OF LEFT HEEL, UNSTAGEABLE SNOMED Code(s): 453823226 (2) Infected pressure ulcer Current Visit: Yes Status: Acute Code(s): L89.90 - PRESSURE ULCER OF UNSPE CIFIED SITE, UNSPECIFIED STAGE; L08.9 - LOCAL INFECTION OF THE SKIN AND SUBCUTANEOUS TISSUE, UNSP SNOMED Code(s): 234814233 (3) MRSA (methicillin resistant staph aureus) culture positive Current Visit: Yes Status: Acute Code(s): Z22.322 - CARRIER OR SUSPECTED CARRIER OF METHICILLIN RESIS STAPH SNOMED Code(s): 279370471 (4) Infection due to ESBL-producing Escherichia coli Current Visit: Yes Status: Acute Code(s): A49.8 - OTHER BACTERIAL INFECTIONS OF UNSPECIFIED SITE; Z16.12 - EXTENDED SPECTRUM BETA LACTAMASE (ESBL) RESISTANCE SNOMED Code(s): 094194081 Plan: 1patient with bilateral heel unstageable pressure ulcer infected with outpatient culture positive for ESBL E. coli MRSA and Proteus treated with Bactrim DS now being admitted to the hospital with worsening of the kidney function more likely related to the Bactrim DS which has been discontinued 2-patient is status post surgical debridement of this wound completed this morning mention no extension below the fascia 3-patient to continue with daptomycin and meropenem while waiting for the OR cultures to finalize at the bedside question concern answered Dictation was produced using [employer]com[employer] software. please excuse any grammatical, word or spelling errors. Time with Patient: Less than 30
[2023-11-25 17:11] LABS: Glucose,Whole Blood 160 mg/dL (70-110)
[2023-11-25] MEDS ORDERED: bisacodyL 10 MG SUPP RECTAL PRN (18:04)
[2023-11-25] MEDS ORDERED: ACETAMINOPHEN TAB 325 MG TAB PO PRN (18:04)
[2023-11-25] MEDS ORDERED: DICYCLOMINE 10 MG CAP PO PRN (18:04)
[2023-11-25] MEDS ORDERED: CALCIUM CARBONATE 500 MG CHEWABLE PO PRN (18:04)
[2023-11-25 20:36] LABS: Glucose,Whole Blood 189 mg/dL (70-110)
[2023-11-25] MEDS ORDERED: DEXTROSE 50% SYRINGE 50 ML IVP PRN ×2 (20:45)
[2023-11-25] MEDS: DONEPEZIL 10 MG TAB PO SCH (20:47)
[2023-11-25] MEDS: ATORVASTATIN 20 MG TAB PO SCH (20:47)
[2023-11-25] MEDS: GABAPENTIN 100 MG CAP PO SCH (20:47)
[2023-11-25] MEDS: INSULIN ASPART (NovoLOG) 100 UNIT/ML VIAL SQ SCH (20:49)
[2023-11-25] MEDS ORDERED: INSULIN ASPART (NovoLOG) 100 UNIT/ML VIAL SQ SCH (21:00)
[2023-11-26] MEDS: LEVOTHYROXINE 100 MCG TAB PO SCH (05:47)
--- NOTE | 2023-11-26 05:57 | P.PN ---
Subjective Progress Note Date: 11/25/23 HISTORY OF PRESENT ILLNESS: 78-year-old Female who I been taking care of from [facility] since September with history of Alzheimer disease, type 2 diabetes, hypertension, hyperlipidemia, chronic depression, atrial fibrillation who was hospitalized at [facility] in September for severe generalized weakness with debility not been able to ambulate and walk was treated for severe dehydration and sent to SNF for rehab patient has not done well continue to have a problem with ambulating and walking 3 weeks ago found to have worsening infection of both heel area with severe PAD of the lower extremity had an appointment to see vascular but culture was done for it at the time shows 3 bulks include Proteus mirabilis, E. coli and methicillin-resistant Staph aureus and all match for clearance to be treated with Bactrim DS. Patient was started on Bactrim DS since November 11, 2023 she has an appointment with vascular sometime this week. As a part of her routine her lab was done earlier today and shows acute kidney failure with bun of 129 and creatinine 3.45 with worsening anemia hemoglobin is down to 8.2 from her borderline 10 early. The patient was sent to the emergency department for the acute kidney failure might require urgent hemodialysis and not clear whether this is dehydration based or happened because of effect of the Bactrim DS. Was seen and evaluated in the emergency department her hemoglobin went up to 9.2 but Hemoccult was positive and bun down to 123 with creatinine of 2.43 influenza RSV and COVID were negative. The patient was admitted to the hospital will consult nephrology, consult infectious disease and consult vascular at this point which initially was not able to see for at least an extra week. 11/25/2023: The patient went to the OR today with Dr. Kinney and had sharp excisional debridement bilateral heel wound area 1 on the right side measured 4.5 0.5 x 3 cm in depth. The 1 on the left measures 3.5 x 3.75 in length and width and 3 mm in depth. Both were debrided nonviable tissue there is no tunneling the wound is extended down to the level of the fascia bilaterally. Also fortunately her kidney function is improving significantly creatinine is down to 2.8 with urine output 1300 cc in 24 hours nephrology are happy about the process patient does not require any dialysis yet this is still considered to be an acute tubular necrosis BUN/creatinine quite elevated as well from GI bleed which patient is not in any active bleed at this point. Infectious disease on the other hand are happy with the current management especially if the debridement will be better and analyzing the culture being positive for ESBL and MRSA she was off Vanco and meropenem and started on daptomycin seen to be doing slightly better with. Will start resuming some of her home meds continue hydration currently with the current consult more happy to see the wound is taking care of her a lot faster. REVIEW OF SYSTEMS: CONSTITUTIONAL: Elderly quite confused in no acute respiratory distress EYES: No icterus sclerae, no conjunctivitis. EARS, NOSE, MOUTH, THROAT, and FACE: No sore throat, lymphadenopathy, carotid bruits or deformity. RESPIRATORY: Mild shortness of breath no cough or wheezes.. CARDIOVASCULAR: No CP, Palpitation, PND, Orthopnea, or angina. GASTROINTESTINAL: No Abd pain, Nausea or vomiting, no Diarrhea or constipation, Hemoccult is positive for no complaint of abdominal pain or active bleed. GENITOURINARY: Negative for Hematuria or UTI, no kidney stones. Acute kidney failure. INTEGUMENT/BREAST: Negative for any muscular injury with mild osteoarthritis.. HEMATOLOGIC/LYMPHATIC: Negative for bleed or purpura. MUSCULOSKELTAL: Negative for Myalgia or arthralgia. Both lower extremity with nasty looking area of infection on the heel area bilaterally smelled bad. NEURLOGICAL: No LOC, Sz or syncope, blurred vision dizziness or abnormality. Advanced dementia. BEHAVIORAL/PSYCH: Negative. ENDOCRINE: Negative. PHYSICAL EXAMINATION: General Appearance: Alert, cooperative, looks older than her age does not respond much does not look in any respiratory distress. Neck HEENT: Supple, no lymphadenopathy, no thyroid enlargement, no carotid bruits. Lungs: Decreased breath sound bilaterally with fine rhonchi slight crackles in the bases specially right side. Chest Wall: Decreased l expansion with deep inspiration no tenderness and no deformity was found on exam, no costochondral pain or discomfort. Heart: Irregular rate and rhythm, S1, S2 normal, no murmur, rub or gallop. Back: Symmetric, no curvature, ROM normal, no CVA tenderness. Abdomen: Soft, non-tender, bowel sounds active all four quadrants, no masses, no organomegaly. Slight discomfort lower abdominal region area. Extremities: Not able to feel any palpable pulse and dorsalis pedis or posterior tibial but there is an open wound area in the heel the side of her foot looks like stage II with measurement of 5.7 cm. Pulses: Not palpable. Skin: Skin color, texture, tugor normal, no rashes or lesions. Neurologic: Alert not oriented cranial nerves II through XII intact, generalized weakness not been able to do gait exam. ASSESSMENT AND PLAN: _Acute kidney failure: Combination of acute tubular necrosis, and proportion with GI bleed, dehydration, and probably reaction to medication including Bactrim. Much better so far continue hydration does not requiring dialysis urine output is up to 1500 cc today. _Severe infection of both feet with Proteus mirabilis, E. coli and MRSA, infectious disease changed antibiotic to daptomycin and off vancomycin and meropenem at this point. Patient went for debridement today and hopefully that will accelerate the healing process a lot faster. _Left side pneumonia or infiltrate: Not a clear clinically does not have pneumonia whether antibiotic she is going to be going for her wound care should be able to take care of it continue to watch her symptoms we will add some updraft treatment on oxygen. _GI bleed: Still on PPI no significant drop in hemoglobin stable and doing better. _Type 2 diabetes: Has been on pioglitazone, NovoLog per sliding scales one of the idea probably to take her off the pioglitazone and switch her to long-acting and short acting insulin. _Advanced dementia: Resume home meds patient is interacting little bit more today. _Peripheral arterial disease of lower extremity: Will consult vascular eventually might need to have arterial Doppler and will be preferred to do an angiogram but under the circumstances were kidney function is not possible. _History of A-fib with RVR resume beta-haroon which will be off anticoagulation at least for the next week to 2 weeks. _Hypothyroidism: Continue levothyroxine 200 mcg daily. _Peripheral neuropathy: Has been having more symptoms mostly related to her ulcer and infection apparently she is doing gabapentin 100 mg twice a day and duloxetine 30 mg daily. _Hyperlipidemia: Continue Lipitor 20 mg daily. _Hypertension: Was on metoprolol combined with losartan 25 mg a day but resume medication. _Chronic pain syndrome: Can resume hydrocodone at this point and gabapentin and to use cautiously. Prognosis: Slightly bit better but still guarded. Objective - Vital Signs Vital signs: Vital Signs Temp 98.5 F 11/25/23 02:00 Pulse 91 11/25/23 02:00 Resp 16 11/25/23 02:00 BP 115/55 11/25/23 02:15 Pulse Ox 98 11/25/23 02:15 FiO2 Intake & Output 11/24/23 11/24/23 11/25/23 06:59 18:59 06:59 Output Total 363 585 3548 Balance -160 -300 -1000 Weight 90.718 kg 90.718 kg Output: Urine 533 031 5660 Other: Voiding Method Diaper Diaper Diaper External Catheter External Catheter Indwelling Catheter - Labs CBC & Chem 7: 11/25/23 06:05 11/25/23 06:05 Labs: Abnormal Lab Results - Last 24 Hours (Table) 11/24/23 11/24/23 11/24/23 Range/Units 05:52 05:52 05:52 WBC 10.50 H (4.50-10.00) X 10*3/uL RBC 2.66 L (4.10-5.20) X 10*6/uL Hgb 8.6 L (12.0-15.0) g/dL Hct 26.5 L (37.2-46.3) % MCV 99.6 H (80.0-97.0) FL MCH 32.3 H (27.0-32.0) pg RDW 15.0 H (11.5-14.5) % MPV 12.3 H (9.5-12.2) FL Immature Gran # 0.13 H (0.00-0.04) X 10*3/uL Neutrophils # 8.64 H (1.80-7.70) X 10*3/uL Lymphocytes # 0.51 L (0.90-5.00) X 10*3/uL Eosinophils # 0.72 H (0.04-0.35) X 10*3/uL Carbon Dioxide 16.4 L (21.6-31.8) mmol/L Anion Gap 15.60 H (4.00-12.00) mmol/L BUN 120.0 A* (9.0-27.0) mg/dL Creatinine 3.8 H (0.6-1.5) mg/dL Est GFR (CKD-EPI) 12 L (>=60) BUN/Creatinine Ratio 31.58 H (12.00-20.00) Ratio POC Glucose (mg/dL) (70-110) mg/dL Iron 23 L (50-170) UG/DL TIBC 181 L (228-460) UG/DL Transferrin 129.0 L (204.0-354.0) mg/dL Total Bilirubin <0.2 L (0.3-1.2) mg/dL AST 50 H (13-35) U/L NT-Pro-B Natriuret Pep 6588 H (0-450) pg/mL Total Protein 6.1 L (6.2-8.2) g/dL Albumin 3.0 L (3.8-4.9) g/dL Albumin/Globulin Ratio 0.97 L (1.60-3.17) Ratio 11/24/23 11/24/23 11/24/23 Range/Units 07:14 17:45 20:11 WBC (4.50-10.00) X 10*3/uL RBC (4.10-5.20) X 10*6/uL Hgb (12.0-15.0) g/dL Hct (37.2-46.3) % MCV (80.0-97.0) FL MCH (27.0-32.0) pg RDW (11.5-14.5) % MPV (9.5-12.2) FL Immature Gran # (0.00-0.04) X 10*3/uL Neutrophils # (1.80-7.70) X 10*3/uL Lymphocytes # (0.90-5.00) X 10*3/uL Eosinophils # (0.04-0.35) X 10*3/uL Carbon Dioxide (21.6-31.8) mmol/L Anion Gap (4.00-12.00) mmol/L BUN (9.0-27.0) mg/dL Creatinine (0.6-1.5) mg/dL Est GFR (CKD-EPI) (>=60) BUN/Creatinine Ratio (12.00-20.00) Ratio POC Glucose (mg/dL) 119 H 113 H 137 H (70-110) mg/dL Iron (50-170) UG/DL TIBC (228-460) UG/DL Transferrin (204.0-354.0) mg/dL Total Bilirubin (0.3-1.2) mg/dL AST (13-35) U/L NT-Pro-B Natriuret Pep (0-450) pg/mL Total Protein (6.2-8.2) g/dL Albumin (3.8-4.9) g/dL Albumin/Globulin Ratio (1.60-3.17) Ratio
[2023-11-26 07:01] LABS: Glucose,Whole Blood 116 mg/dL (70-110)
[2023-11-26] MEDS: ISOSORBIDE MONONITRATE ER 30 MG TAB.ER.24H PO SCH (08:25)
[2023-11-26] MEDS: METOPROLOL TARTRATE 25 MG TAB PO SCH (08:25)
[2023-11-26] MEDS: CHOLECALCIFEROL 125 MCG (5000 IU) TABLET PO SCH (08:25)
[2023-11-26] MEDS: MEMANTINE 10 MG TAB PO SCH (08:26)
[2023-11-26] MEDS: DULoxetine HCL 30 MG CAPSULE.DR PO SCH (08:26)
[2023-11-26 11:26] LABS: African American GFR (CKD) 35 (>60 ml/min/1.73 sqM); Anion Gap 7 mmol/L; Blood Urea Nitrogen 77 mg/dL (7-17); Calcium 8.1 mg/dL (8.4-10.2); Carbon Dioxide 25 mmol/L (22-30); Chloride 107 mmol/L (98-107); Glucose 119 mg/dL (74-99); Non-African American GFR(CKD) 30 (>60 ml/min/1.73 sqM); Potassium 3.8 mmol/L (3.5-5.1); Sodium 139 mmol/L (137-145)
[2023-11-26 11:55] LABS: Glucose,Whole Blood 134 mg/dL (70-110)
[2023-11-26] MEDS ORDERED: NON FORMULARY DRUG (Ensure Enlive 237 ML) PO SCH (12:00)
--- NOTE | 2023-11-26 12:38 | P.PN ---
Subjective Progress Note Date: 11/26/23 Principal diagnosis: Bilateral heel wounds Patient seen and examined today as a follow-up. Yesterday she underwent debridement of bilateral heel wounds. Today without any complaints. Cute changes through the night. ABIs right 0.67, left 0.55 Objective - Vital Signs Vital signs: Vital Signs Temp 97.4 F L 11/26/23 07:12 Pulse 94 11/26/23 11:53 Resp 20 11/26/23 07:12 BP 133/59 11/26/23 07:12 Pulse Ox 96 11/26/23 07:55 FiO2 Intake & Output 11/25/23 11/26/23 11/26/23 18:59 06:59 18:59 Intake Total 525 120 Output Total 1305 750 Balance -780 -630 Weight 90.718 kg Intake: IV 525 Oral 120 Output: Urine 1300 750 Estimated Blood Loss 5 Other: Voiding Method Diaper Diaper Diaper Indwelling Catheter Indwelling Catheter Indwelling Catheter # Bowel Movements 1 1 - Exam General appearance: The patient is alert, oriented to self, appears in no acute distress. HET: Head is normocephalic and atraumatic. Pupils are equal and reactive. Neck: Supple. Heart: Regular. Lungs: Equal expansion, normal respiratory effort. Abdomen: Soft, nontender, nondistended. Extremities: Bilateral heel wounds, dressings changed. No foul odor, clean base. Neurological: Alert - Labs CBC & Chem 7: 11/25/23 06:05 11/26/23 10:51 Labs: Abnormal Lab Results - Last 24 Hours (Table) 11/25/23 11/25/23 11/26/23 Range/Units 17:10 20:34 06:59 BUN (7-17) mg/dL Creatinine (0.52-1.04) mg/dL Glucose (74-99) mg/dL POC Glucose (mg/dL) 160 H 189 H 116 H (70-110) mg/dL Calcium (8.4-10.2) mg/dL 11/26/23 11/26/23 Range/Units 10:51 11:53 BUN 77 H (7-17) mg/dL Creatinine 1.63 H (0.52-1.04) mg/dL Glucose 119 H (74-99) mg/dL POC Glucose (mg/dL) 134 H (70-110) mg/dL Calcium 8.1 L (8.4-10.2) mg/dL Microbiology - Last 24 Hours (Table) 11/23/23 22:50 Blood Culture - Preliminary Blood 11/23/23 22:35 Blood Culture - Preliminary Blood Assessment and Plan Assessment: 1. Bilateral diabetic pressure heel wounds 2. Altered mental status changes 3. Diabetes mellitus 4. Alzheimer's disease 5. Atrial fibrillation 6. Hypertension and hyperlipidemia 7. Peripheral arterial disease Plan: 1. Continue to offload bilateral heels 2. Local wound care per recommendations from infectious disease 3. Continue with pain management 4. Patient to follow-up with vascular surgery to follow-up for peripheral arterial disease Thank you for this consultation. The impression and plan of care has been dictated as directed. I performed a history and examination of this patient, discussed the same with the dictator. I agree with the dictator's note ,documented as a scribe. Any additional findings or plans will be noted.
--- NOTE | 2023-11-26 13:17 | P.PN ---
Subjective Progress Note Date: 11/26/23 Principal diagnosis: Reason for follow-up is bilateral heel infected pressure ulcer Patient is a 78-year-old female with a past medical history significant for diabetes mellitus short-term memory loss patient is a [place] [facility] patient did have a nonhealing wound to bilateral heel area and apparently patient did have a outpatient culture done on 11/11/2023 and grew Proteus E. coli and MRSA E. coli was ESBL treated with the Bactrim DS was admitted to hospital worsening kidney function. Patient s/p surgical debridement of bilateral heel wound by vascular surgery mention extending down to the fascia only. On today's visit that is 11/26/2023, Patient is afebrile patient is currently on 4 L nasal oxygen however the patient is breathing comfortably in no distress no vomiting noted the change reported by the nursing staff patient cannot provide any history. Patient did have drop in her kidney function with a creatinine is down to 1.63 white count was 7.55 yesterday blood cultures are pending Objective - Vital Signs Vital signs: Vital Signs Temp 97.4 F L 11/26/23 07:12 Pulse 94 11/26/23 11:53 Resp 20 11/26/23 07:12 BP 133/59 11/26/23 07:12 Pulse Ox 96 11/26/23 07:55 FiO2 Intake & Output 11/25/23 11/26/23 11/26/23 18:59 06:59 18:59 Intake Total 525 120 Output Total 1305 750 Balance -780 -630 Weight 90.718 kg Intake: IV 525 Oral 120 Output: Urine 1300 750 Estimated Blood Loss 5 Other: Voiding Method Diaper Diaper Diaper Indwelling Catheter Indwelling Catheter Indwelling Catheter # Bowel Movements 1 1 - Exam GENERAL DESCRIPTION: An elderly female lying in bed in no distress RESPIRATORY SYSTEM: Unlabored breathing , decreased breath sounds at bases HEART: S1 S2 regular rate and rhythm , ABDOMEN: Soft , no tenderness EXTREMITIES: Bilateral heels are currently dressed - Labs CBC & Chem 7: 11/25/23 06:05 11/26/23 10:51 Labs: Abnormal Lab Results - Last 24 Hours (Table) 11/25/23 11/25/23 11/26/23 Range/Units 17:10 20:34 06:59 BUN (7-17) mg/dL Creatinine (0.52-1.04) mg/dL Glucose (74-99) mg/dL POC Glucose (mg/dL) 160 H 189 H 116 H (70-110) mg/dL Calcium (8.4-10.2) mg/dL 11/26/23 11/26/23 Range/Units 10:51 11:53 BUN 77 H (7-17) mg/dL Creatinine 1.63 H (0.52-1.04) mg/dL Glucose 119 H (74-99) mg/dL POC Glucose (mg/dL) 134 H (70-110) mg/dL Calcium 8.1 L (8.4-10.2) mg/dL Microbiology - Last 24 Hours (Table) 11/23/23 22:50 Blood Culture - Preliminary Blood 11/23/23 22:35 Blood Culture - Preliminary Blood Assessment and Plan (1) Pressure ulcer of both heels, unstageable Current Visit: Yes Status: Acute Code(s): L89.610 - PRESSURE ULCER OF RIGHT HEEL, UNSTAGEABLE; L89.620 - PRESSURE ULCER OF LEFT HEEL, UNSTAGEABLE SNOMED Code(s): 168608778 (2) Infected pressure ulcer Current Visit: Yes Status: Acute Code(s): L89.90 - PRESSURE ULCER OF UNSPECIFIED SITE, UNSPECIFIED STAGE; L08.9 - LOCAL INFECTION OF THE SKIN AND SUBCUTANEOUS TISSUE, UNSP SNOMED Code(s): 989957545 (3) MRSA (methicillin resistant staph aureus) culture positive Current Visit: Yes Status: Acute Code(s): Z22.322 - CARRIER OR SUSPECTED CARRIER OF METHICILLIN RESIS STAPH SNOMED Code(s): 031430949 (4) Infection due to ESBL-producing Escherichia coli Current Visit: Yes Status: Acute Code(s): A49.8 - OTHER BACTERIAL INFECTIONS OF UNSPECIFIED SITE; Z16.12 - EXTENDED SPECTRUM BETA LACTAMASE (ESBL) RESISTANCE SNOMED Code(s): 205403834 Plan: 1patient with bilateral heel unstageable pressure ulcer infected with outpatient culture positive for ESBL E. coli MRSA and Proteus treated with Bactrim DS now being admitted to the hospital with worsening of the kidney function more likely related to the Bactrim DS which has been discontinued 2-patient is status post surgical debridement of bilateral heel wound completed, operative report mention no extension below the fascia 3-patient to continue with daptomycin and meropenem while waiting for the OR cultures to finalize Will need a PICC line for outpatient IV antibiotic therapy once cleared by nephrology to place 1 Dictation was produced using [employer] dictation software. please excuse any grammatical, word or spelling errors. Time with Patient: Less than 30
--- NOTE | 2023-11-26 15:52 | P.PN ---
Subjective Patient is seen for follow-up for acute kidney injury. Currently maintained on IV fluids. Mentation has improved significantly. Renal function has improved as well with creatinine down to 1.6. Patient has had good urine output. 2000 mL charted for last 24 hours. Objective - Vital Signs Vital signs: Vital Signs Temp 97.9 F 11/26/23 13:13 Pulse 76 11/26/23 13:13 Resp 24 11/26/23 13:13 BP 98/40 11/26/23 13:13 Pulse Ox 95 11/26/23 13:13 FiO2 Intake & Output 11/25/23 11/26/23 11/26/23 18:59 06:59 18:59 Intake Total 525 120 Output Total 1305 750 Balance -780 -630 Weight 90.718 kg Intake: IV 525 Oral 120 Output: Urine 1300 750 Estimated Blood Loss 5 Other: Voiding Method Diaper Diaper Diaper Indwelling Catheter Indwelling Catheter Indwelling Catheter # Bowel Movements 1 1 - Exam Patient is awake, no acute distress. Mentation is much improved. Examination of the heart S1 and S2 Examination of the lungs bilateral breath sounds are heard with decreased breath sounds at the bases Abdomen is soft nontender Examination of lower extremities shows no edema. Bilateral heel wounds currently dressed [employer] exam shows patient has been moving all her extremities. - Labs CBC & Chem 7: 11/25/23 06:05 11/26/23 10:51 Labs: Abnormal Lab Results - Last 24 Hours (Table) 11/25/23 11/25/23 11/26/23 Range/Units 17:10 20:34 06:59 BUN (7-17) mg/dL Creatinine (0.52-1.04) mg/dL Glucose (74-99) mg/dL POC Glucose (mg/dL) 160 H 189 H 116 H (70-110) mg/dL Calcium (8.4-10.2) mg/dL 11/26/23 11/26/23 Range/Units 10:51 11:53 BUN 77 H (7-17) mg/dL Creatinine 1.63 H (0.52-1.04) mg/dL Glucose 119 H (74-99) mg/dL POC Glucose (mg/dL) 134 H (70-110) mg/dL Calcium 8.1 L (8.4-10.2) mg/dL Microbiology - Last 24 Hours (Table) 11/25/23 08:15 Gram Stain - Preliminary Heel - Left 11/23/23 22:50 Blood Culture - Preliminary Blood 11/23/23 22:35 Blood Culture - Preliminary Blood Assessment and Plan Assessment: 1. Acute kidney injury ATN secondary to hypotension and underlying infection. Serum creatinine also elevated from use of Bactrim. B UN is disproportionately elevated secondary to underlying GI bleed. UA shows 1+ protein and moderate blood. No obstructive uropathy noted on ultrasound. 2. Anion gap metabolic acidosis secondary to acute kidney injury. Lactic acid is not elevated 3. Anemia with positive stool for occult blood. Check iron profile 4. Bilateral heel wounds with wound cultures as outpatient growing Proteus, E. coli and MSSA 5. History of UTI with E. coli on 09/23/2023 Plan: DC IV bicarb Changed to normal saline. Continue with IV antibiotics Continue to hold angiotensin receptor blockers
[2023-11-26 17:12] LABS: Glucose,Whole Blood 138 mg/dL (70-110)
[2023-11-26 19:53] LABS: Glucose,Whole Blood 202 mg/dL (70-110)
[2023-11-26] MEDS: HYDROcodone/APAP 7.5-325MG 1 EACH TAB PO PRN (20:44)
--- NOTE | 2023-11-27 06:17 | P.PN ---
Subjective Progress Note Date: 11/26/23 HISTORY OF PRESENT ILLNESS: 78-year-old Female who I been taking care of from [facility] since September with history of Alzheimer disease, type 2 diabetes, hypertension, hyperlipidemia, chronic depression, atrial fibrillation who was hospitalized at [facility] in September for severe generalized weakness with debility not been able to ambulate and walk was treated for severe dehydration and sent to SNF for rehab patient has not done well continue to have a problem with ambulating and walking 3 weeks ago found to have worsening infection of both heel area with severe PAD of the lower extremity had an appointment to see vascular but culture was done for it at the time shows 3 bulks include Proteus mirabilis, E. coli and methicillin-resistant Staph aureus and all match for clearance to be treated with Bactrim DS. Patient was started on Bactrim DS since November 11, 2023 she has an appointment with vascular sometime this week. As a part of her routine her lab was done earlier today and shows acute kidney failure with bun of 129 and creatinine 3.45 with worsening anemia hemoglobin is down to 8.2 from her borderline 10 early. The patient was sent to the emergency department for the acute kidney failure might require urgent hemodialysis and not clear whether this is dehydration based or happened because of effect of the Bactrim DS. Was seen and evaluated in the emergency department her hemoglobin went up to 9.2 but Hemoccult was positive and bun down to 123 with creatinine of 2.43 influenza RSV and COVID were negative. The patient was admitted to the hospital will consult nephrology, consult infectious disease and consult vascular at this point which initially was not able to see for at least an extra week. 11/25/2023: The patient went to the OR today with Dr. Kinney and had sharp excisional debridement bilateral heel wound area 1 on the right side measured 4.5 0.5 x 3 cm in depth. The 1 on the left measures 3.5 x 3.75 in length and width and 3 mm in depth. Both were debrided nonviable tissue there is no tunneling the wound is extended down to the level of the fascia bilaterally. Also fortunately her kidney function is improving significantly creatinine is down to 2.8 with urine output 1300 cc in 24 hours nephrology are happy about the process patient does not require any dialysis yet this is still considered to be an acute tubular necrosis BUN/creatinine quite elevated as well from GI bleed which patient is not in any active bleed at this point. Infectious disease on the other hand are happy with the current management especially if the debridement will be better and analyzing the culture being positive for ESBL and MRSA she was off Vanco and meropenem and started on daptomycin seen to be doing slightly better with. Will start resuming some of her home meds continue hydration currently with the current consult more happy to see the wound is taking care of her a lot faster. 11/26/2023: She has done well since her surgery pain is under control with minimal medication, kidney function is improving significantly bun is down 77 with creatinine 1.63, her urine output is running quite bed last 24 hours she had over 1300 cc. Still on IV hydration her vitals are holding well. Also from infectious disease standpoint with good she had with the heel was unstageable pressure ulcer infected with a culture of ESBL, E. coli and MRSA she will be continue on daptomycin and meropenem till the OR culture is complete, patient will need a PICC line which probably will be scheduled for Wednesday. Further recommendation for her final antibiotic use and time will be finalized probably around Wednesday of this coming week. REVIEW OF SYSTEMS: CONSTITUTIONAL: Elderly quite confused in no acute respiratory distress EYES: No icterus sclerae, no conjunctivitis. EARS, NOSE, MOUTH, THROAT, and FACE: No sore throat, lymphadenopathy, carotid bruits or deformity. RESPIRATORY: Mild shortness of breath no cough or wheezes.. CARDIOVASCULAR: No CP, Palpitation, PND, Orthopnea, or angina. GASTROINTESTINAL: No Abd pain, Nausea or vomiting, no Diarrhea or constipation, Hemoccult is positive for no complaint of abdominal pain or active bleed. GENITOURINARY: Negative for Hematuria or UTI, no kidney stones. Acute kidney failure. INTEGUMENT/BREAST: Negative for any muscular injury with mild osteoarthritis.. HEMATOLOGIC/LYMPHATIC: Negative for bleed or purpura. MUSCULOSKELTAL: Negative for Myalgia or arthralgia. Both lower extremity with nasty looking area of infection on the heel area bilaterally smelled bad. NEURLOGICAL: No LOC, Sz or syncope, blurred vision dizziness or abnormality. Advanced dementia. BEHAVIORAL/PSYCH: Negative. ENDOCRINE: Negative. PHYSICAL EXAMINATION: General Appearance: Alert, cooperative, looks older than her age does not respond much does not look in any respiratory distress. Neck HEENT: Supple, no lymphadenopathy, no thyroid enlargement, no carotid bruits. Lungs: Decreased breath sound bilaterally with fine rhonchi slight crackles in the bases specially right side. Chest Wall: Decreased l expansion with deep inspiration no tenderness and no deformity was found on exam, no costochondral pain or discomfort. Heart: Irregular rate and rhythm, S1, S2 normal, no murmur, rub or gallop. Back: Symmetric, no curvature, ROM normal, no CVA tenderness. Abdomen: Soft, non-tender, bowel sounds active all four quadrants, no masses, no organomegaly. Slight discomfort lower abdominal region area. Extremities: Not able to feel any palpable pulse and dorsalis pedis or posterior tibial but there is an open wound area in the heel the side of her foot looks like stage II with measurement of 5.7 cm. Pulses: Not palpable. Skin: Skin color, texture, tugor normal, no rashes or lesions. Neurologic: Alert not oriented cranial nerves II through XII intact, generalized weakness not been able to do gait exam. ASSESSMENT AND PLAN: _Acute kidney failure: Combination of acute tubular necrosis, and proportion with GI bleed, dehydration, and probably reaction to medication including Bactrim. Urine output is over 1300 cc, creatinine is down to 1.3 patient is close to her baseline, her bun is still slightly bit up at this point. _Severe unstageable bilateral ulcer of both heel with infection with Proteus mirabilis, E. coli and MRSA, infectious disease changed antibiotic to daptomycin and off vancomycin and meropenem at this point. Patient went for debridement today and hopefully that will accelerate the healing process a lot faster. Continue daptomycin and meropenem till the final culture will need probably PICC line and IV antibiotics to complete few weeks while she is in [facility]. _Left side pneumonia or infiltrate: Not a clear clinically does not have p neumonia whether antibiotic she is going to be going for her wound care should be able to take care of it continue to watch her symptoms we will add some updraft treatment on oxygen. Repeat another chest x-ray before her discharge. _GI bleed: Still on PPI no significant drop in hemoglobin stable and doing better. She is remain off anticoagulation at this point but hemoglobin is stable not pursuing any further workup for the GI bleed at this point. _Type 2 diabetes: Has been on pioglitazone, NovoLog per sliding scales one of the idea probably to take her off the pioglitazone and switch her to long-acting and short acting insulin. _Advanced dementia: Resume home meds patient is interacting little bit more today. _Peripheral arterial disease of lower extremity: Further testing after this bad infection he will might need to be. _History of A-fib with RVR resume beta-haroon which will be off anticoagulation at least for the next week to 2 weeks. _Hypothyroidism: Continue levothyroxine 200 mcg daily. _Peripheral neuropathy: Has been having more symptoms mostly related to her ulce r and infection apparently she is doing gabapentin 100 mg twice a day and duloxetine 30 mg daily. _Hyperlipidemia: Continue Lipitor 20 mg daily. _Hypertension: Was on metoprolol combined with losartan 25 mg a day but resume medication. _Chronic pain syndrome: Patient is more confused with heavy medication try to use more alternative like Tylenol if needed to control the pain. Prognosis: Slightly bit better but still guarded. Discharge planning patient will require probably PICC line on Wednesday and if finalize antibiotic management around Wednesday or Wednesday might be able to go back tomorrow with but final plan for wound care and IV antibiotics. Objective - Vital Signs Vital signs: Vital Signs Temp 98.4 F 11/26/23 02:00 Pulse 63 11/26/23 02:00 Resp 16 11/26/23 02:00 BP 106/54 11/26/23 02:00 Pulse Ox 96 11/26/23 02:00 FiO2 Intake & Output 11/25/23 11/25/23 11/26/23 06:59 18:59 06:59 Intake Total 525 120 Output Total 1000 1305 Balance -1000 -780 120 Intake: IV 525 Oral 120 Output: Urine 1000 1300 Estimated Blood Loss 5 Other: Voiding Method Diaper Diaper Diaper Indwelling Catheter Indwelling Catheter Indwelling Catheter # Bowel Movements 1 - Labs CBC & Chem 7: 11/25/23 06:05 11/26/23 10:51 Labs: Abnormal Lab Results - Last 24 Hours (Table) 11/25/23 11/25/23 11/25/23 Range/Units 06:05 06:05 07:23 RBC 2.52 L (4.10-5.20) X 10*6/uL Hgb 8.1 L (12.0-15.0) g/dL Hct 24.6 L (37.2-46.3) % MCV 97.6 H (80.0-97.0) FL MCH 32.1 H (27.0-32.0) pg RDW 15.0 H (11.5-14.5) % MPV 12.4 H (9.5-12.2) FL ESR 57 H (0-30) mm/Hr Carbon Dioxide 20.3 L (21.6-31.8) mmol/L Anion Gap 13.70 H (4.00-12.00) mmol/L BUN 98.2 H (9.0-27.0) mg/dL Creatinine 2.8 H (0.6-1.5) mg/dL Est GFR (CKD-EPI) 17 L (>=60) BUN/Creatinine Ratio 35.07 H (12.00-20.00) Ratio Glucose 121 H (70-110) mg/dL POC Glucose (mg/dL) 115 H (70-110) mg/dL Calcium 8.2 L (8.7-10.3) mg/dL Total Bilirubin <0.2 L (0.3-1.2) mg/dL AST 134 H (13-35) U/L Alkaline Phosphatase 36 L (41-126) U/L NT-Pro-B Natriuret Pep 3874 H (0-450) pg/mL Total Protein 5.7 L (6.2-8.2) g/dL Albumin 2.7 L (3.8-4.9) g/dL Albumin/Globulin Ratio 0.90 L (1.60-3.17) Ratio 11/25/23 11/25/23 11/25/23 Range/Units 12:04 17:10 20:34 RBC (4.10-5.20) X 10*6/uL Hgb (12.0-15.0) g/dL Hct (37.2-46.3) % MCV (80.0-97.0) FL MCH (27.0-32.0) pg RDW (11.5-14.5) % MPV (9.5-12.2) FL ESR (0-30) mm/Hr Carbon Dioxide (21.6-31.8) mmol/L Anion Gap (4.00-12.00) mmol/L BUN (9.0-27.0) mg/dL Creatinine (0.6-1.5) mg/dL Est GFR (CKD-EPI) (>=60) BUN/Creatinine Ratio (12.00-20.00) Ratio Glucose (70-110) mg/dL POC Glucose (mg/dL) 130 H 160 H 189 H (70-110) mg/dL Calcium (8.7-10.3) mg/dL Total Bilirubin (0.3-1.2) mg/dL AST (13-35) U/L Alkaline Phosphatase (41-126) U/L NT-Pro-B Natriuret Pep (0-450) pg/mL Total Protein (6.2-8.2) g/dL Albumin (3.8-4.9) g/dL Albumin/Globulin Ratio (1.60-3.17) Ratio Microbiology - Last 24 Hours (Table) 11/23/23 22:50 Blood Culture - Preliminary Blood 11/23/23 22:35 Blood Culture - Preliminary Blood
[2023-11-27 07:04] LABS: Glucose,Whole Blood 100 mg/dL (70-110)
--- NOTE | 2023-11-27 08:47 | P.PN ---
Subjective Patient is seen in follow-up for acute kidney injury. Receiving IV fluids. Renal function has been improving. Has Jaimes catheter. Nonoliguric. Oral intake fair. Vital signs are stable. General: No acute distress. HEENT: Head exam is unremarkable. LUNGS: No audible rhonchi or wheezes. HEART: Rate and Rhythm are regular. ABDOMEN: Nontender. EXTREMITITES: No edema. Objective - Vital Signs Vital signs: Vital Signs Temp 98.4 F 11/27/23 06:51 Pulse 64 11/27/23 06:51 Resp 16 11/27/23 06:51 BP 100/62 11/27/23 06:51 Pulse Ox 95 11/27/23 07:41 FiO2 Intake & Output 11/26/23 11/27/23 11/27/23 18:59 06:59 18:59 Intake Total 1790 Output Total 900 825 Balance -900 965 Weight 90.718 kg Intake: Intake, IV Titration 1450 Amount Dextrose 5% in Water 1, 1350 000 ml @ 100 mls/hr IV . [id number] CORAZON with Sodium Bicarb (1 Meq/ml) 150 ml Rx#:[id number] Meropenem 1 gm In Sodium 100 Chloride 0.9% 100 ml @ 33 .3 mls/hr IVPB Q12HR CORAZON Rx#:[id number] Oral 340 Output: Urine 900 825 Uretheral (Jaimes) 825 Other: Voiding Method Diaper Indwelling Catheter Indwelling Catheter # Bowel Movements 1 - Labs CBC & Chem 7: 11/25/23 06:05 11/26/23 10:51 Labs: Abnormal Lab Results - Last 24 Hours (Table) 11/26/23 11/26/23 11/26/23 Range/Units 10:51 11:53 17:10 BUN 77 H (7-17) mg/dL Creatinine 1.63 H (0.52-1.04) mg/dL Glucose 119 H (74-99) mg/dL POC Glucose (mg/dL) 134 H 138 H (70-110) mg/dL Calcium 8.1 L (8.4-10.2) mg/dL 11/26/23 Range/Units 19:44 BUN (7-17) mg/dL Creatinine (0.52-1.04) mg/dL Glucose (74-99) mg/dL POC Glucose (mg/dL) 202 H (70-110) mg/dL Calcium (8.4-10.2) mg/dL Microbiology - Last 24 Hours (Table) 11/25/23 08:15 Gram Stain - Preliminary Heel - Left Tissue Culture - Preliminary Group D Enterococcus 11/23/23 22:50 Blood Culture - Preliminary Blood 11/23/23 22:35 Blood Culture - Preliminary Blood Assessment and Plan Plan: Assessment: 1. Acute kidney injury secondary to ATN secondary to severe sepsis. Creatinine peaked at 3.8 this admission and was down to 1.63 yesterday. 2. Chronic kidney disease stage IIIb with creatinine near 1.4 in September 2023. 3. Bilateral heel wounds on antibiotics. 4. Metabolic acidosis secondary to acute kidney injury and IV fluids. Improved with bicarb drip. 5. Anemia. Iron deficiency noted. Plan: Maintain normal saline. Encouraged oral intake. Add IV iron. Avoid nephrotoxins. Continue to monitor renal function and urine output.
[2023-11-27] MEDS: SODIUM FERRIC GLUCONAT-SUCROSE 125 MG in SODIUM CHLORIDE 0.9% 100 ML IVPB SCH (10:56)
[2023-11-27 11:21] LABS: Basophils % (A) 0 %; Eosinophils # (A) 0.4 k/uL (0-0.7); Eosinophils % (A) 6 %; HCT 23.1 % (34.0-46.0); Hypochromasia Slight; Lymphocytes # (A) 1.7 k/uL (1.0-4.8); Lymphocytes % (A) 26 %; MCH 33.4 pg (25.0-35.0); MCHC 32.9 g/dL (31.0-37.0); MCV 101.6 fL (80.0-100.0); Macrocytosis Slight; Mean Platelet Volume 9.7; Monocytes # (A) 0.3 k/uL (0-1.0); Monocytes % (A) 5 %; Neutrophils % (A) 60 %; Platelet Count 154 k/uL (150-450); RBC 2.27 m/uL (3.80-5.40); RDW 14.5 % (11.5-15.5); WBC 6.7 k/uL (3.8-10.6)
[2023-11-27 11:52] LABS: HGB 7.6 gm/dL (11.4-16.0)
[2023-11-27 11:52] LABS: Glucose,Whole Blood 100 mg/dL (70-110)
[2023-11-27 11:58] LABS: ALT 37 U/L (4-34); AST 95 U/L (14-36); African American GFR (CKD) 47 (>60 ml/min/1.73 sqM); Albumin 2.1 g/dL (3.5-5.0); Albumin/Globulin Ratio 0.8; Alkaline Phosphatase 50 U/L (38-126); Anion Gap 3 mmol/L; Blood Urea Nitrogen 54 mg/dL (7-17); Calcium 7.9 mg/dL (8.4-10.2); Carbon Dioxide 32 mmol/L (22-30); Chloride 104 mmol/L (98-107); Globulin 2.8 g/dL; Glucose 95 mg/dL (74-99); Non-African American GFR(CKD) 41 (>60 ml/min/1.73 sqM); Potassium 3.7 mmol/L (3.5-5.1); Sodium 139 mmol/L (137-145); Total Bilirubin 0.4 mg/dL (0.2-1.3); Total Protein 4.9 g/dL (6.3-8.2)
[2023-11-27] MEDS: SODIUM CHLORIDE 0.9% 1,000 ML IV SCH (14:05)
--- NOTE | 2023-11-27 14:13 | P.PN ---
Subjective Progress Note Date: 11/27/23 Principal diagnosis: Reason for follow-up is bilateral heel infected pressure ulcer Patient is a 78-year-old female with a past medical history significant for diabetes mellitus short-term memory loss patient is a [facility] patient did have a nonhealing wound to bilateral heel area and apparently patient did have a outpatient culture done on 11/11/2023 and grew Proteus E. coli and MRSA E. coli was ESBL treated with the Bactrim DS was admitted to hospital worsening kidney function. Patient s/p surgical debridement of bilateral heel wound by vascular surgery mention extending down to the fascia only. On today's visit that is 11/27/2023, patient has been afebrile, patient is breathing comfortably and is currently on 2 L nasal cannula oxygen, patient cur rently sleepy and no issues reported by the at the bedside no vomiting or diarrhea has been reported. Patient white count is 6.7, creatinine is 1.28 left ear culture growing Enterococcus Objective - Vital Signs Vital signs: Vital Signs Temp 97.8 F 11/27/23 12:18 Pulse 66 11/27/23 12:18 Resp 16 11/27/23 12:18 BP 111/57 11/27/23 12:18 Pulse Ox 96 11/27/23 12:18 FiO2 Intake & Output 11/26/23 11/27/23 11/27/23 18:59 06:59 18:59 Intake Total 1790 Output Total 900 825 Balance -900 965 Weight 90.718 kg Intake: Intake, IV Titration 1450 Amount Dextrose 5% in Water 1, 1350 000 ml @ 100 mls/hr IV . [id number] CORAZON with Sodium Bicarb (1 Meq/ml) 150 ml Rx#:[id number] Meropenem 1 gm In Sodium 100 Chloride 0.9% 100 ml @ 33 .3 mls/hr IVPB Q12HR CORAZON Rx#:[id number] Oral 340 Output: Urine 900 825 Uretheral (Jaimes) 825 Other: Voiding Method Diaper Indwelling Catheter Indwelling Catheter Indwelling Catheter # Bowel Movements 1 - Exam GENERAL DESCRIPTION: An elderly female lying in bed in no distress RESPIRATORY SYSTEM: Unlabored breathing , decreased breath sounds at bases HEART: S1 S2 regular rate and rhythm , ABDOMEN: Soft , no tenderness EXTREMITIES: Bilateral heels are currently dressed - Labs CBC & Chem 7: 11/27/23 11:04 11/27/23 11:04 Labs: Abnormal Lab Results - Last 24 Hours (Table) 11/26/23 11/26/23 11/27/23 Range/Units 17:10 19:44 11:04 RBC 2.27 L (3.80-5.40) m/uL Hgb 7.6 L D (11.4-16.0) gm/dL Hct 23.1 L (34.0-46.0) % MCV 101.6 H (80.0-100.0) fL Carbon Dioxide (22-30) mmol/L BUN (7-17) mg/dL Creatinine (0.52-1.04) mg/dL POC Glucose (mg/dL) 138 H 202 H (70-110) mg/dL Calcium (8.4-10.2) mg/dL AST (14-36) U/L ALT (4-34) U/L Total Protein (6.3-8.2) g/dL Albumin (3.5-5.0) g/dL 11/27/23 Range/Units 11:04 RBC (3.80-5.40) m/uL Hgb (11.4-16.0) gm/dL Hct (34.0-46.0) % MCV (80.0-100.0) fL Carbon Dioxide 32 H (22-30) mmol/L BUN 54 H (7-17) mg/dL Creatinine 1.28 H (0.52-1.04) mg/dL POC Glucose (mg/dL) (70-110) mg/dL Calcium 7.9 L (8.4-10.2) mg/dL AST 95 H (14-36) U/L ALT 37 H (4-34) U/L Total Protein 4.9 L (6.3-8.2) g/dL Albumin 2.1 L (3.5-5.0) g/dL Microbiology - Last 24 Hours (Table) 11/23/23 22:50 Blood Culture - Preliminary Blood 11/23/23 22:35 Blood Culture - Preliminary Blood 11/25/23 08:15 Gram Stain - Preliminary Heel - Left Tissue Culture - Preliminary Group D Enterococcus Assessment and Plan (1) Pressure ulcer of both heels, unstageable Current Visit: Yes Status: Acute Code(s): L89.610 - PRESSURE ULCER OF RIGHT HEEL, UNSTAGEABLE; L89.620 - PRESSURE ULCER OF LEFT HEEL, UNSTAGEABLE SNOMED Code(s): 107227426 (2) Infected pressure ulcer Current Visit: Yes Status: Acute Code(s): L89.90 - PRESSURE ULCER OF UNSPECIFIED SITE, UNSPECIFIED STAGE; L08.9 - LOCAL INFECTION OF THE SKIN AND SUBCUTANEOUS TISSUE, UNSP SNOMED Code(s): 436811907 (3) MRSA (methicillin resistant staph aureus) culture positive Current Visit: Yes Status: Acute Code(s): Z22.322 - CARRIER OR SUSPECTED CARRIER OF METHICILLIN RESIS STAPH SNOMED Code(s): 826884668 (4) Infection due to ESBL-producing Escherichia coli Current Visit: Yes Status: Acute Code(s): A49.8 - OTHER BACTERIAL INFECTIONS OF UNSPECIFIED SITE; Z16.12 - EXTENDED SPECTRUM BETA LACTAMASE (ESBL) RESISTANCE SNOMED Code(s): 110977581 Plan: 1patient with bilateral heel unstageable pressure ulcer infected with outpatient culture positive for ESBL E. coli MRSA and Proteus treated with Bactrim DS now being admitted to the hospital with worsening of the kidney function more likely related to the Bactrim DS which has been discontinued 2-patient is status post surgical debridement of bilateral heel wound completed, operative report mention no extension below the fascia 3-patient to continue with daptomycin and meropenem, or cultures currently growing Enterococcus with ID sensitivities pending at the bedside questions were answered Dictation was produced using [employer] software. please excuse any grammatical, word or spelling errors.
[2023-11-27 16:51] LABS: Glucose,Whole Blood 123 mg/dL (70-110)
[2023-11-27 19:51] LABS: Glucose,Whole Blood 152 mg/dL (70-110)
[2023-11-28 07:07] LABS: Glucose,Whole Blood 117 mg/dL (70-110)
[2023-11-28] MEDS: TAMSULOSIN 0.4 MG CAP.ER.24H PO SCH (10:00)
--- NOTE | 2023-11-28 10:52 | P.PN ---
Subjective Patient is seen in follow-up for acute kidney injury. Receiving IV fluids. Renal function has been improving. Has Jaimes catheter. Nonoliguric. Oral intake fair. Vital signs are stable. General: No acute distress. HEENT: Head exam is unremarkable. LUNGS: No audible rhonchi or wheezes. HEART: Rate and Rhythm are regular. ABDOMEN: Nontender. EXTREMITITES: No edema. No drainage. Objective - Vital Signs Vital signs: Vital Signs Temp 97.6 F 11/28/23 07:09 Pulse 78 11/28/23 08:02 Resp 24 11/28/23 07:09 BP 141/55 11/28/23 07:09 Pulse Ox 96 11/28/23 07:48 FiO2 Intake & Output 11/27/23 11/28/23 11/28/23 17:59 06:59 18:59 Output Total Balance Output: Urine Other: Voiding Method Indwelling Catheter # Voids # Bowel Movements - Labs CBC & Chem 7: 11/27/23 11:04 11/27/23 11:04 Labs: Abnormal Lab Results - Last 24 Hours (Table) 11/27/23 11/27/23 11/27/23 Range/Units 11:04 11:04 16:49 RBC 2.27 L (3.80-5.40) m/uL Hgb 7.6 L D (11.4-16.0) gm/dL Hct 23.1 L (34.0-46.0) % MCV 101.6 H (80.0-100.0) fL Carbon Dioxide 32 H (22-30) mmol/L BUN 54 H (7-17) mg/dL Creatinine 1.28 H (0.52-1.04) mg/dL POC Glucose (mg/dL) 123 H (70-110) mg/dL Calcium 7.9 L (8.4-10.2) mg/dL AST 95 H (14-36) U/L ALT 37 H (4-34) U/L Total Protein 4.9 L (6.3-8.2) g/dL Albumin 2.1 L (3.5-5.0) g/dL 11/27/23 11/28/23 Range/Units 19:49 07:06 RBC (3.80-5.40) m/uL Hgb (11.4-16.0) gm/dL Hct (34.0-46.0) % MCV (80.0-100.0) fL Carbon Dioxide (22-30) mmol/L BUN (7-17) mg/dL Creatinine (0.52-1.04) mg/dL POC Glucose (mg/dL) 152 H 117 H (70-110) mg/dL Calcium (8.4-10.2) mg/dL AST (14-36) U/L ALT (4-34) U/L Total Protein (6.3-8.2) g/dL Albumin (3.5-5.0) g/dL Microbiology - Last 24 Hours (Table) 11/25/23 08:15 Gram Stain - Preliminary Heel - Left Tissue Culture - Preliminary Enterococcus faecalis 11/23/23 22:50 Blood Culture - Preliminary Blood 11/23/23 22:35 Blood Culture - Preliminary Blood Assessment and Plan Plan: Assessment: 1. Acute kidney injury secondary to ATN secondary to severe sepsis. Creatinine peaked at 3.8 this admission and was down to 1.28 yesterday. 2. Chronic kidney disease stage IIIb with creatinine near 1.4 in September 2023. 3. Bilateral heel wounds on antibiotics. 4. Metabolic acidosis secondary to acute kidney injury and IV fluids. Improved with bicarb drip. 5. Anemia. Iron deficiency noted. 6. Urinary retention. Has Jaimes catheter. Plan: Maintain normal saline. Encouraged oral intake. Maintain IV iron. Avoid nephrotoxins. Continue to monitor renal function and urine output. Add Flomax. Trial of void tomorrow.
[2023-11-28 11:07] LABS: Basophils # (A) 0.04 X 10*3/uL (0.00-0.10); Basophils % (A) 0.5 %; Eosinophils # (A) 0.59 X 10*3/uL (0.04-0.35); Eosinophils % (A) 7.2 %; HCT 25.2 % (37.2-46.3); HGB 7.7 g/dL (12.0-15.0); Lymphocytes # (A) 2.39 X 10*3/uL (0.90-5.00); Lymphocytes % (A) 29.2 %; MCH 31.7 pg (27.0-32.0); MCHC 30.6 g/dL (32.0-37.0); MCV 103.7 FL (80.0-97.0); Mean Platelet Volume 12.6 FL (9.5-12.2); Monocytes # (A) 0.82 X 10*3/uL (0.20-1.00); NRBC Per 100 WBC 0 X 10*3/uL (0.00-0.01); Neutrophils # (A) 4.31 X 10*3/uL (1.80-7.70); Neutrophils % (A) 52.7 %; Platelet Count 185 X 10*3/uL (140-440); RBC 2.43 X 10*6/uL (4.10-5.20); RDW 14.9 % (11.5-14.5); WBC 8.18 X 10*3/uL (4.50-10.00)
[2023-11-28 11:32] LABS: Magnesium 1.9 mg/dL (1.5-2.4)
[2023-11-28 11:52] LABS: Glucose,Whole Blood 109 mg/dL (70-110)
[2023-11-28 12:20] LABS: BUN/Creat Ratio 35.91 Ratio (12.00-20.00); Blood Urea Nitrogen 39.5 mg/dL (9.0-27.0); Glucose 101 mg/dL (70-110)
[2023-11-28 12:21] LABS: ALT 32 U/L (8-44); AST 76 U/L (13-35); Albumin 2.5 g/dL (3.8-4.9); Albumin/Globulin Ratio 0.93 Ratio (1.60-3.17); Alkaline Phosphatase 43 U/L (41-126); Calcium 8.4 mg/dL (8.7-10.3); Carbon Dioxide 29.2 mmol/L (21.6-31.8); Chloride 107 mmol/L (96-109); Globulin 2.7 g/dL (1.6-3.3); Sodium 146 mmol/L (135-145); Total Bilirubin 0.3 mg/dL (0.3-1.2); Total Protein 5.2 g/dL (6.2-8.2)
--- NOTE | 2023-11-28 13:52 | P.PN ---
Subjective Progress Note Date: 11/27/23 HISTORY OF PRESENT ILLNESS: 78-year-old Female who I been taking care of from [facility] since September with history of Alzheimer disease, type 2 diabetes, hypertension, hyperlipidemia, chronic depression, atrial fibrillation who was hospitalized at [facility] in September for severe generalized weakness with debility not been able to ambulate and walk was treated for severe dehydration and sent to SNF for rehab patient has not done well continue to have a problem with ambulating and walking 3 weeks ago found to have worsening infection of both heel area with severe PAD of the lower extremity had an appointment to see vascular but culture was done for it at the time shows 3 bulks include Proteus mirabilis, E. coli and methicillin-resistant Staph aureus and all match for clearance to be treated with Bactrim DS. Patient was started on Bactrim DS since November 11, 2023 she has an appointment with vascular sometime this week. As a part of her routine her lab was done earlier today and shows acute kidney failure with bun of 129 and creatinine 3.45 with worsening anemia hemoglobin is down to 8.2 from her borderline 10 early. The patient was sent to the emergency department for the acute kidney failure might require urgent hemodialysis and not clear whether this is dehydration based or happened because of effect of the Bactrim DS. Was seen and evaluated in the emergency department her hemoglobin went up to 9.2 but Hemoccult was positive and bun down to 123 with creatinine of 2.43 influenza RSV and COVID were negative. The patient was admitted to the hospital will consult nephrology, consult infectious disease and consult vascular at this point which initially was not able to see for at least an extra week. 11/25/2023: The patient went to the OR today with Dr. Kinney and had sharp excisional debridement bilateral heel wound area 1 on the right side measured 4.5 0.5 x 3 cm in depth. The 1 on the left measures 3.5 x 3.75 in length and width and 3 mm in depth. Both were debrided nonviable tissue there is no tunneling the wound is extended down to the level of the fascia bilaterally. Also fortunately her kidney function is improving significantly creatinine is down to 2.8 with urine output 1300 cc in 24 hours nephrology are happy about the process patient does not require any dialysis yet this is still considered to be an acute tubular necrosis BUN/creatinine quite elevated as well from GI bleed which patient is not in any active bleed at this point. Infectious disease on the other hand are happy with the current management especially if the debridement will be better and analyzing the culture being positive for ESBL and MRSA she was off Vanco and meropenem and started on daptomycin seen to be doing slightly better with. Will start resuming some of her home meds continue hydration currently with the current consult more happy to see the wound is taking care of her a lot faster. 11/26/2023: She has done well since her surgery pain is under control with minimal medication, kidney function is improving significantly bun is down 77 with creatinine 1.63, her urine output is running quite bed last 24 hours she had over 1300 cc. Still on IV hydration her vitals are holding well. Also from infectious disease standpoint with good she had with the heel was unstageable pressure ulcer infected with a culture of ESBL, E. coli and MRSA she will be continue on daptomycin and meropenem till the OR culture is complete, patient will need a PICC line which probably will be scheduled for Wednesday. Further recommendation for her final antibiotic use and time will be finalized probably around Wednesday of this coming week. 11/27/2023: She is doing well, No need for hemodialysis at this point her edema and kidney function is much better. Continue IV antibiotics physically and psychologically her interaction is quite limited specially with her memory loss. Sadly hemoglobin still slightly low but no need for transfusion at this point yet. Waiting for PICC line for tomorrow to finalize her IV antibiotics and prepare hopefully for sending her back SNF sometime this week. REVIEW OF SYSTEMS: CONSTITUTIONAL: Elderly quite confused in no acute respiratory distress EYES: No icterus sclerae, no conjunctivitis. EARS, NOSE, MOUTH, THROAT, and FACE: No sore throat, lymphadenopathy, carotid bruits or deformity. RESPIRATORY: Mild shortness of breath no cough or wheezes.. CARDIOVASCULAR: No CP, Palpitation, PND, Orthopnea, or angina. GASTROINTESTINAL: No Abd pain, Nausea or vomiting, no Diarrhea or constipation, Hemoccult is positive for no complaint of abdominal pain or active bleed. GENITOURINARY: Negative for Hematuria or UTI, no kidney stones. Acute kidney failure. INTEGUMENT/BREAST: Negative for any muscular injury with mild osteoarthritis.. HEMATOLOGIC/LYMPHATIC: Negative for bleed or purpura. MUSCULOSKELTAL: Negative for Myalgia or arthralgia. Both lower extremity with nasty looking area of infection on the heel area bilaterally smelled bad. NEURLOGICAL: No LOC, Sz or syncope, blurred vision dizziness or abnormality. Advanced dementia. BEHAVIORAL/PSYCH: Negative. ENDOCRINE: Negative. PHYSICAL EXAMINATION: General Appearance: Alert, cooperative, looks older than her age does not respond much does not look in any respiratory distress. Neck HEENT: Supple, no lymphadenopathy, no thyroid enlargement, no carotid bruits. Lungs: Decreased breath sound bilaterally with fine rhonchi slight crackles in the bases specially right side. Chest Wall: Decreased l expansion with deep inspiration no tenderness and no deformity was found on exam, no costochondral pain or discomfort. Heart: Irregular rate and rhythm, S1, S2 normal, no murmur, rub or gallop. Back: Symmetric, no curvature, ROM normal, no CVA tenderness. Abdomen: Soft, non-tender, bowel sounds active all four quadrants, no masses, no organomegaly. Slight discomfort lower abdominal region area. Extremities: Not able to feel any palpable pulse and dorsalis pedis or posterior tibial but there is an open wound area in the heel the side of her foot looks like stage II with measurement of 5.7 cm. Pulses: Not palpable. Skin: Skin color, texture, tugor normal, no rashes or lesions. Neurologic: Alert not oriented cranial nerves II through XII intact, generalized weakness not been able to do gait exam. ASSESSMENT AND PLAN: _Acute kidney failure: Has improved significantly since her admission and there is no need for any consideration for hemodialysis. _Severe unstageable bilateral ulcer of both heel with infection with Proteus mirabilis, E. coli and MRSA, infectious disease changed antibiotic to daptomycin and off vancomycin and meropenem at this point. Patient went for debridement today and hopefully that will accelerate the healing process a lot faster. Continue daptomycin and meropenem till the final culture will need probably PICC line and IV antibiotics to complete few weeks while she is in [facility]. _Left side pneumonia or infiltrate: Not a clear clinically does not have pneumonia whether antibiotic she is going to be going for her wound care should be able to take care of it continue to watch her symptoms we will add some updraft treatment on oxygen. Repeat another chest x-ray before her discharge. _GI bleed: Still on PPI no significant drop in hemoglobin stable and doing bett er. She is remain off anticoagulation at this point but hemoglobin is stable not pursuing any further workup for the GI bleed at this point. _Type 2 diabetes: Has been on pioglitazone, NovoLog per sliding scales one of the idea probably to take her off the pioglitazone and switch her to long-acting and short acting insulin. _Advanced dementia: Resume home meds patient is interacting little bit more today. _Peripheral arterial disease of lower extremity: Further testing after this bad infection he will might need to be. _History of A-fib with RVR resume beta-haroon which will be off anticoagulation at least for the next week to 2 weeks. _Hypothyroidism: Continue levothyroxine 200 mcg daily. _Peripheral neuropathy: Has been having more symptoms mostly related to her ulcer and infection apparently she is doing gabapentin 100 mg twice a day and duloxetine 30 mg daily. _Hyperlipidemia: Continue Lipitor 20 mg daily. _Hypertension: Was on metoprolol combined with losartan 25 mg a day but resume medication. _Chronic pain syndrome: Patient is more confused with heavy medication try to use more alternative like Tylenol if needed to control the pain. Prognosis: Slightly bit better but still guarded. Discharge planning patient will require probably PICC line on Wednesday and if fin emily antibiotic management around Wednesday or Wednesday might be able to go back tomorrow with but final plan for wound care and IV antibiotics. Objective - Vital Signs Vital signs: Vital Signs Temp 97.8 F 11/27/23 01:56 Pulse 72 11/27/23 01:56 Resp 16 11/27/23 01:56 BP 125/67 11/27/23 01:56 Pulse Ox 96 11/27/23 01:56 FiO2 Intake & Output 11/26/23 11/26/23 11/27/23 06:59 18:59 06:59 Intake Total 120 1790 Output Total 750 900 825 Balance -630 -900 965 Weight 90.718 kg Intake: Intake, IV Titration 1450 Amount Dextrose 5% in Water 1, 1350 000 ml @ 100 mls/hr IV . [id number] CORAZON with Sodium Bicarb (1 Meq/ml) 150 ml Rx#:[id number] Meropenem 1 gm In Sodium 100 Chloride 0.9% 100 ml @ 33 .3 mls/hr IVPB Q12HR CORAZON Rx#:[id number] Oral 120 340 Output: Urine 750 900 825 Uretheral (Jaimes) 825 Other: Voiding Method Diaper Diaper Indwelling Catheter Indwelling Catheter Indwelling Catheter # Bowel Movements 1 1 - Labs CBC & Chem 7: 11/28/23 06:37 11/28/23 06:37 Labs: Abnormal Lab Results - Last 24 Hours (Table) 11/26/23 11/26/23 11/26/23 Range/Units 06:59 10:51 11:53 BUN 77 H (7-17) mg/dL Creatinine 1.63 H (0.52-1.04) mg/dL Glucose 119 H (74-99) mg/dL POC Glucose (mg/dL) 116 H 134 H (70-110) mg/dL Calcium 8.1 L (8.4-10.2) mg/dL 11/26/23 11/26/23 Range/Units 17:10 19:44 BUN (7-17) mg/dL Creatinine (0.52-1.04) mg/dL Glucose (74-99) mg/dL POC Glucose (mg/dL) 138 H 202 H (70-110) mg/dL Calcium (8.4-10.2) mg/dL Microbiology - Last 24 Hours (Table) 11/25/23 08:15 Gram Stain - Preliminary Heel - Left Tissue Culture - Preliminary Group D Enterococcus 11/23/23 22:50 Blood Culture - Preliminary Blood 11/23/23 22:35 Blood Culture - Preliminary Blood
--- NOTE | 2023-11-28 13:58 | P.PN ---
Subjective Progress Note Date: 11/28/23 HISTORY OF PRESENT ILLNESS: 78-year-old Female who I been taking care of from [facility] since September with history of Alzheimer disease, type 2 diabetes, hypertension, hyperlipidemia, chronic depression, atrial fibrillation who was hospitalized at [facility] in September for severe generalized weakness with debility not been able to ambulate and walk was treated for severe dehydration and sent to SNF for rehab patient has not done well continue to have a problem with ambulating and walking 3 weeks ago found to have worsening infection of both heel area with severe PAD of the lower extremity had an appointment to see vascular but culture was done for it at the time shows 3 bulks include Proteus mirabilis, E. coli and methicillin-resistant Staph aureus and all match for clearance to be treated with Bactrim DS. Patient was started on Bactrim DS since November 11, 2023 she has an appointment with vascular sometime this week. As a part of her routine her lab was done earlier today and shows acute kidney failure with bun of 129 and creatinine 3.45 with worsening anemia hemoglobin is down to 8.2 from her borderline 10 early. The patient was sent to the emergency department for the acute kidney failure might require urgent hemodialysis and not clear whether this is dehydration based or happened because of effect of the Bactrim DS. Was seen and evaluated in the emergency department her hemoglobin went up to 9.2 but Hemoccult was positive and bun down to 123 with creatinine of 2.43 influenza RSV and COVID were negative. The patient was admitted to the hospital will consult nephrology, consult infectious disease and consult vascular at this point which initially was not able to see for at least an extra week. 11/25/2023: The patient went to the OR today with Dr. Kinney and had sharp excisional debridement bilateral heel wound area 1 on the right side measured 4.5 0.5 x 3 cm in depth. The 1 on the left measures 3.5 x 3.75 in length and width and 3 mm in depth. Both were debrided nonviable tissue there is no tunneling the wound is extended down to the level of the fascia bilaterally. Also fortunately her kidney function is improving significantly creatinine is down to 2.8 with urine output 1300 cc in 24 hours nephrology are happy about the process patient does not require any dialysis yet this is still considered to be an acute tubular necrosis BUN/creatinine quite elevated as well from GI bleed which patient is not in any active bleed at this point. Infectious disease on the other hand are happy with the current management especially if the debridement will be better and analyzing the culture being positive for ESBL and MRSA she was off Vanco and meropenem and started on daptomycin seen to be doing slightly better with. Will start resuming some of her home meds continue hydration currently with the current consult more happy to see the wound is taking care of her a lot faster. 11/26/2023: She has done well since her surgery pain is under control with minimal medication, kidney function is improving significantly bun is down 77 with creatinine 1.63, her urine output is running quite bed last 24 hours she had over 1300 cc. Still on IV hydration her vitals are holding well. Also from infectious disease standpoint with good she had with the heel was unstageable pressure ulcer infected with a culture of ESBL, E. coli and MRSA she will be continue on daptomycin and meropenem till the OR culture is complete, patient will need a PICC line which probably will be scheduled for Wednesday. Further recommendation for her final antibiotic use and time will be finalized probably around Wednesday of this coming week. 11/27/2023: She is doing well, No need for hemodialysis at this point her edema and kidney function is much better. Continue IV antibiotics physically and psychologically her interaction is quite limited specially with her memory loss. Sadly hemoglobin still slightly low but no need for transfusion at this point yet. Waiting for PICC line for tomorrow to finalize her IV antibiotics and prepare hopefully for sending her back SNF sometime this week. 11/28/2023: was on the bedside Long discussion about expectation and prognosis. He is in completely different concerned that when he been told about the problem of the kidney, circulation, unstageable ulcer with possible having to lose more tissue of her feet in the next few weeks. The is worried about his short-term memory which patient has advanced dementia has been on 2 different medication for long time. Also her mobility is significantly decreased due to increased of having it skin outbreak specially in the sacrum and the buttocks area. All his questions were answered. Patient has no objective about having PICC line tomorrow and change antibiotic REVIEW OF SYSTEMS: CONSTITUTIONAL: Elderly quite confused in no acute respiratory distress EYES: No icterus sclerae, no conjunctivitis. EARS, NOSE, MOUTH, THROAT, and FACE: No sore throat, lymphadenopathy, carotid bruits or deformity. RESPIRATORY: Mild shortness of breath no cough or wheezes.. CARDIOVASCULAR: No CP, Palpitation, PND, Orthopnea, or angina. GASTROINTESTINAL: No Abd pain, Nausea or vomiting, no Diarrhea or constipation, Hemoccult is positive for no complaint of abdominal pain or active bleed. GENITOURINARY: Negative for Hematuria or UTI, no kidney stones. Acute kidney f ailure. INTEGUMENT/BREAST: Negative for any muscular injury with mild osteoarthritis.. HEMATOLOGIC/LYMPHATIC: Negative for bleed or purpura. MUSCULOSKELTAL: Negative for Myalgia or arthralgia. Both lower extremity with nasty looking area of infection on the heel area bilaterally smelled bad. NEURLOGICAL: No LOC, Sz or syncope, blurred vision dizziness or abnormality. Advanced dementia. BEHAVIORAL/PSYCH: Negative. ENDOCRINE: Negative. PHYSICAL EXAMINATION: General Appearance: Alert, cooperative, looks older than her age does not respond much does not look in any respiratory distress. Neck HEENT: Supple, no lymphadenopathy, no thyroid enlargement, no carotid bruit s. Lungs: Decreased breath sound bilaterally with fine rhonchi slight crackles in the bases specially right side. Chest Wall: Decreased l expansion with deep inspiration no tenderness and no deformity was found on exam, no costochondral pain or discomfort. Heart: Irregular rate and rhythm, S1, S2 normal, no murmur, rub or gallop. Back: Symmetric, no curvature, ROM normal, no CVA tenderness. Abdomen: Soft, non-tender, bowel sounds active all four quadrants, no masses, no organomegaly. Slight discomfort lower abdominal region area. Extremities: Not able to feel any palpable pulse and dorsalis pedis or posterior tibial but there is an open wound area in the heel the side of her foot looks like stage II with measurement of 5.7 cm. Pulses: Not palpable. Skin: Skin color, texture, tugor normal, no rashes or lesions. Neurologic: Alert not oriented cranial nerves II through XII intact, generalized weakness not been able to do gait exam. ASSESSMENT AND PLAN: _Severe unstageable bilateral ulcer of both heel with infection with Proteus mirabilis, E. coli and MRSA, infectious disease changed antibiotic to daptomycin and off vancomycin and meropenem at this point. Patient went for debridement today and hopefully that will accelerate the healing process a lot faster. Continue daptomycin and meropenem till the final culture will need probably PICC line and IV antibiotics to complete few weeks while she is in [facility]. _Acute kidney failure: Has improved significantly since her admission and there is no need for any consideration for hemodialysis. _Left side pneumonia or infiltrate: Clinically looks like it is improving. _GI bleed: Still on PPI no significant drop in hemoglobin stable and doing better. She is remain off anticoagulation at this point but hemoglobin is stable not pursuing any further workup for the GI bleed at this point. Slight drop in hemoglobin but having iron infusion. _Acute blood loss anemia: Hemoglobin down to 7, iron infusion was done and patient will probably require blood transfusion if hemoglobin still down. _Type 2 diabetes: Has been on pioglitazone, NovoLog per sliding scales one of the idea probably to take her off the pioglitazone and switch her to long-acting and short acting insulin. _Advanced dementia: Resume home meds patient is interacting little bit more today. _Peripheral arterial disease of lower extremity: Further testing after this bad infection he will might need to be. _History of A-fib with RVR resume beta-haroon which will be off anticoagulation at least for the next week to 2 weeks. _Hypothyroidism: Continue levothyroxine 200 mcg daily. _Peripheral neuropathy: Has been having more symptoms mostly related to her ulcer and infection apparently she is doing gabapentin 100 mg twice a day and duloxetine 30 mg daily. _Hyperlipidemia: Continue Lipitor 20 mg daily. _Hypertension: Was on metoprolol combined with losartan 25 mg a day but resume medication. _Chronic pain syndrome: Patient is more confused with heavy medication try to use more alternative like Tylenol if needed to control the pain. Prognosis: Slightly bit better but still guarded. Objective - Vital Signs Vital signs: Vital Signs Temp 97.6 F 11/28/23 07:09 Pulse 78 11/28/23 08:02 Resp 24 11/28/23 07:09 BP 141/55 11/28/23 07:09 Pulse Ox 96 11/28/23 07:48 FiO2 Intake & Output 11/27/23 11/28/23 11/28/23 17:59 06:59 18:59 Output Total Balance Output: Urine Other: Voiding Method # Voids # Bowel Movements - Labs CBC & Chem 7: 11/28/23 06:37 11/28/23 06:37 Labs: Abnormal Lab Results - Last 24 Hours (Table) 11/27/23 11/27/23 11/27/23 Range/Units 11:04 11:04 16:49 RBC 2.27 L (3.80-5.40) m/uL Hgb 7.6 L D (11.4-16.0) gm/dL Hct 23.1 L (34.0-46.0) % MCV 101.6 H (80.0-100.0) fL Carbon Dioxide 32 H (22-30) mmol/L BUN 54 H (7-17) mg/dL Creatinine 1.28 H (0.52-1.04) mg/dL POC Glucose (mg/dL) 123 H (70-110) mg/dL Calcium 7.9 L (8.4-10.2) mg/dL AST 95 H (14-36) U/L ALT 37 H (4-34) U/L Total Protein 4.9 L (6.3-8.2) g/dL Albumin 2.1 L (3.5-5.0) g/dL 11/27/23 11/28/23 Range/Units 19:49 07:06 RBC (3.80-5.40) m/uL Hgb (11.4-16.0) gm/dL Hct (34.0-46.0) % MCV (80.0-100.0) fL Carbon Dioxide (22-30) mmol/L BUN (7-17) mg/dL Creatinine (0.52-1.04) mg/dL POC Glucose (mg/dL) 152 H 117 H (70-110) mg/dL Calcium (8.4-10.2) mg/dL AST (14-36) U/L ALT (4-34) U/L Total Protein (6.3-8.2) g/dL Albumin (3.5-5.0) g/dL Microbiology - Last 24 Hours (Table) 11/25/23 08:15 Gram Stain - Preliminary Heel - Left Tissue Culture - Preliminary Enterococcus faecalis 11/23/23 22:50 Blood Culture - Preliminary Blood 11/23/23 22:35 Blood Culture - Preliminary Blood
--- NOTE | 2023-11-28 15:05 | P.PN ---
Subjective Progress Note Date: 11/28/23 Principal diagnosis: Reason for follow-up is bilateral heel infected pressure ulcer Patient is a 78-year-old female with a past medical history significant for diabetes mellitus short-term memory loss patient is a intermediate resident patient did have a nonhealing wound to bilateral heel area and apparently patient did have a outpatient culture done on 11/11/2023 and grew Proteus E. coli and MRSA E. coli was ESBL treated with the Bactrim DS was admitted to hospital worsening kidney function. Patient s/p surgical debridement of bilateral heel wound by vascular surgery mention extending down to the fascia only. On today's visit that is 11/28/2023,the patient denies any fever or any chills, patient is breathing comfortably on 2 L nasal cannula oxygen, the patient seem to be doing better not a very good historian no significant changes reported by at the bedside no vomiting or diarrhea reported by the nursing staff. Patient white count is 8.18, creatinine is 1 point 1 repeat culture grew Enterococcus faecalis Objective - Vital Signs Vital signs: Vital Signs Temp 97.3 F L 11/28/23 12:55 Pulse 65 11/28/23 12:55 Resp 20 11/28/23 12:55 BP 97/46 11/28/23 12:55 Pulse Ox 94 L 11/28/23 12:55 FiO2 Intake & Output 11/27/23 11/28/23 11/28/23 17:59 06:59 18:59 Output Total 775 Balance -775 Output: Urine 775 Other: Voiding Method Indwelling Catheter # Voids # Bowel Movements - Exam GENERAL DESCRIPTION: An elderly female lying in bed in no distress RESPIRATORY SYSTEM: Unlabored breathing , decreased breath sounds at bases HEART: S1 S2 regular rate and rhythm , ABDOMEN: Soft , no tenderness EXTREMITIES: Bilateral heels wounds with slough tissue right is more extensive involvement of the palpable no drainage - Labs CBC & Chem 7: 11/28/23 06:37 11/28/23 06:37 Labs: Abnormal Lab Results - Last 24 Hours (Table) 11/27/23 11/27/23 11/28/23 Range/Units 16:49 19:49 06:37 RBC (4.10-5.20) X 10*6/uL Hgb (12.0-15.0) g/dL Hct (37.2-46.3) % MCV (80.0-97.0) FL MCHC (32.0-37.0) g/dL RDW (11.5-14.5) % MPV (9.5-12.2) FL Eosinophils # (0.04-0.35) X 10*3/uL Sodium 146 H (135-145) mmol/L BUN 39.5 H (9.0-27.0) mg/dL Est GFR (CKD-EPI) 52 L (>=60) BUN/Creatinine Ratio 35.91 H (12.00-20.00) Ratio POC Glucose (mg/dL) 123 H 152 H (70-110) mg/dL AST 76 H (13-35) U/L Albumin/Globulin Ratio 0.93 L (1.60-3.17) Ratio 11/28/23 11/28/23 Range/Units 06:37 07:06 RBC 2.43 L (4.10-5.20) X 10*6/uL Hgb 7.7 L (12.0-15.0) g/dL Hct 25.2 L (37.2-46.3) % MCV 103.7 H (80.0-97.0) FL MCHC 30.6 L (32.0-37.0) g/dL RDW 14.9 H (11.5-14.5) % MPV 12.6 H (9.5-12.2) FL Eosinophils # 0.59 H (0.04-0.35) X 10*3/uL Sodium (135-145) mmol/L BUN (9.0-27.0) mg/dL Est GFR (CKD-EPI) (>=60) BUN/Creatinine Ratio (12.00-20.00) Ratio POC Glucose (mg/dL) 117 H (70-110) mg/dL AST (13-35) U/L Albumin/Globulin Ratio (1.60-3.17) Ratio Microbiology - Last 24 Hours (Table) 11/25/23 08:15 Gram Stain - Preliminary Heel - Left Tissue Culture - Preliminary Enterococcus faecalis 11/23/23 22:50 Blood Culture - Preliminary Blood 11/23/23 22:35 Blood Culture - Preliminary Blood Assessment and Plan (1) Pressure ulcer of both heels, unstageable Current Visit: Yes Status: Acute Code(s): L89.610 - PRESSURE ULCER OF RIGHT HEEL, UNSTAGEABLE; L89.620 - PRESSURE ULCER OF LEFT HEEL, UNSTAGEABLE SNOMED Code(s): 470909166 (2) Infected pressure ulcer Current Visit: Yes Status: Acute Code(s): L89.90 - PRESSURE ULCER OF UNSPECIFIED SITE, UNSPECIFIED STAGE; L08.9 - LOCAL INFECTION OF THE SKIN AND SUBCUTANEOUS TISSUE, UNSP SNOMED Code(s): 735437260 (3) MRSA (methicillin resistant staph aureus) culture positive Current Visit: Yes Status: Acute Code(s): Z22.322 - CARRIER OR SUSPECTED CARRIER OF METHICILLIN RESIS STAPH SNOMED Code(s): 398929227 (4) Infection due to ESBL-producing Escherichia coli Current Visit: Yes Status: Acute Code(s): A49.8 - OTHER BACTERIAL INFECTIONS OF UNSPECIFIED SITE; Z16.12 - EXTENDED SPECTRUM BETA LACTAMASE (ESBL) RESISTANCE SNOMED Code(s): 316191965 Plan: 1patient with bilateral heel unstageable pressure ulcer infected with outpatient culture positive for ESBL E. coli MRSA and Proteus treated with Bactrim DS now being admitted to the hospital with worsening of the kidney function more likely related to the Bactrim DS which has been discontinued 2-patient is status post surgical debridement of bilateral heel wound completed, operative report mention no extension below the fascia however the wound can be palpable on the right heel area concerning for possible osteomyelitis 3-patient OR cultures are growing Enterococcus faecalis that is penicillin sensitive Forwe will discontinue daptomycin and Invanz start the patient on Unasyn 3 g every 6 hours she will need a PICC line for outpatient IV antibiotics at the bedside questions were answered Dictation was produced using [employer] software. please excuse any grammatical, word or spelling errors. Time with Patient: Less than 30
[2023-11-28] MEDS: SODIUM CHLORIDE 0.45% 1,000 ML IV SCH (16:05)
[2023-11-28 17:11] LABS: Glucose,Whole Blood 128 mg/dL (70-110)
[2023-11-28] MEDS: AMPICILLIN-SULBACTAM 3 GM in SODIUM CHLORIDE 0.9% 100 ML IVPB SCH (17:13)
[2023-11-28 20:08] LABS: Glucose,Whole Blood 126 mg/dL (70-110)
[2023-11-29 06:54] LABS: Prothrombin Time 10.9 sec (10.0-12.5)
[2023-11-29 07:22] LABS: Glucose,Whole Blood 111 mg/dL (70-110)
[2023-11-29] MEDS: HYDROcodone/APAP 7.5-325MG 1 EACH TAB PO ONE (10:35)
[2023-11-29] MEDS ORDERED: ZINC OXIDE PASTE (Z-GUARD) 1 APPLIC TOPICAL PRN (10:49)
[2023-11-29 11:21] LABS: Blood Urea Nitrogen 29.3 mg/dL (9.0-27.0); Calcium 8.5 mg/dL (8.7-10.3); Carbon Dioxide 27.4 mmol/L (21.6-31.8); Chloride 108 mmol/L (96-109); Glucose 89 mg/dL (70-110); Magnesium 1.8 mg/dL (1.5-2.4); Potassium 4.1 mmol/L (3.5-5.5); Sodium 144 mmol/L (135-145)
--- NOTE | 2023-11-29 12:19 | P.PN ---
Subjective Patient is seen in follow-up for acute kidney injury. Renal function better. On half-normal saline. Sodium level 144. Has Jaimes catheter. Nonoliguric. Oral intake fair. Vital signs are stable. General: No acute distress. HEENT: Head exam is unremarkable. LUNGS: No audible rhonchi or wheezes. HEART: Rate and Rhythm are regular. ABDOMEN: Nontender. EXTREMITITES: No edema. No drainage. Objective - Vital Signs Vital signs: Vital Signs Temp 98.0 F 11/29/23 07:16 Pulse 71 11/29/23 08:17 Resp 21 11/29/23 07:16 BP 124/55 11/29/23 07:16 Pulse Ox 98 11/29/23 08:03 FiO2 Intake & Output 11/28/23 11/29/23 11/29/23 18:59 06:59 18:59 Output Total 1075 1200 Balance -1075 -1200 Output: Urine 1075 1200 Other: Voiding Method Indwelling Catheter Indwelling Catheter Indwelling Catheter # Bowel Movements 1 - Labs CBC & Chem 7: 11/28/23 06:37 11/29/23 05:34 Labs: Abnormal Lab Results - Last 24 Hours (Table) 11/28/23 11/28/23 11/28/23 Range/Units 06:37 17:10 20:06 Sodium 146 H (135-145) mmol/L BUN 39.5 H (9.0-27.0) mg/dL Est GFR (CKD-EPI) 52 L (>=60) BUN/Creatinine Ratio 35.91 H (12.00-20.00) Ratio POC Glucose (mg/dL) 128 H 126 H (70-110) mg/dL Calcium (8.7-10.3) mg/dL AST 76 H (13-35) U/L Albumin/Globulin Ratio 0.93 L (1.60-3.17) Ratio 11/29/23 11/29/23 Range/Units 05:34 07:21 Sodium (135-145) mmol/L BUN 29.3 H (9.0-27.0) mg/dL Est GFR (CKD-EPI) 58 L (>=60) BUN/Creatinine Ratio 29.30 H (12.00-20.00) Ratio POC Glucose (mg/dL) 111 H (70-110) mg/dL Calcium 8.5 L (8.7-10.3) mg/dL AST (13-35) U/L Albumin/Globulin Ratio (1.60-3.17) Ratio Microbiology - Last 24 Hours (Table) 11/25/23 08:15 Gram Stain - Final Heel - Left Tissue Culture - Final Enterococcus faecalis Escherichia coli Assessment and Plan Plan: Assessment: 1. Acute kidney injury secondary to ATN secondary to severe sepsis. Creatinine peaked at 3.8 this admission and down to 1.0 today. 2. Chronic kidney disease stage IIIb with creatinine near 1.4 in September 2023. 3. Bilateral heel wounds on antibiotics. 4. Metabolic acidosis secondary to acute kidney injury and IV fluids. Improved with bicarb drip. 5. Anemia. Iron deficiency noted. 6. Urinary retention. Has Jaimes catheter. On Flomax. 7. Hypernatremia from lack of oral water intake. Better with hypotonic fluid infusion. Plan: Maintain half-normal saline. Encouraged oral intake. Maintain IV iron. Avoid nephrotoxins. Continue to monitor renal function and urine output. Okay to DC Jaimes catheter from nephrology standpoint. Monitor bladder scans to make sure no underlying retention.
[2023-11-29] MEDS: ERTAPENEM 1 GM in SODIUM CHLORIDE 0.9% 50 ML IVPB SCH (12:27)
--- NOTE | 2023-11-29 12:36 | P.PN ---
Subjective Progress Note Date: 11/29/23 Principal diagnosis: Reason for follow-up is bilateral heel infected pressure ulcer Patient is a 78-year-old female with a past medical history significant for diabetes mellitus short-term memory loss patient is a [facility] patient did have a nonhealing wound to bilateral heel area and apparently patient did have a outpatient culture done on 11/11/2023 and grew Proteus E. coli and MRSA E. coli was ESBL treated with the Bactrim DS was admitted to hospital worsening kidney function. Patient s/p surgical debridement of bilateral heel wound by vascular surgery mention extending down to the fascia only. On today's visit that is 11/29/2023,the patient remains to be afebrile, patient is on 2 L nasal cannula supplemental oxygen patient apparently has been given pain medication in the form of [place] before my evaluation and seem to be sleepy apparently the patient seem to have issues with the pain and has been seen to be concerned about it no vomiting or diarrhea has been reported. Patient creatinine normal at 1.0 no CBC was done today cultures growing Enterococcus faecalis and ESBL E. coli blood culture negative Objective - Vital Signs Vital signs: Vital Signs Temp 98.0 F 11/29/23 07:16 Pulse 71 11/29/23 08:17 Resp 21 11/29/23 07:16 BP 124/55 11/29/23 07:16 Pulse Ox 98 11/29/23 08:03 FiO2 Intake & Output 11/28/23 11/29/23 11/29/23 18:59 06:59 18:59 Output Total 1075 1200 Balance -1075 -1200 Output: Urine 1075 1200 Other: Voiding Method Indwelling Catheter Indwelling Catheter Indwelling Catheter # Bowel Movements 1 - Exam GENERAL DESCRIPTION: An elderly female lying in bed in no distress RESPIRATORY SYSTEM: Unlabored breathing , decreased breath sounds at bases HEART: S1 S2 regular rate and rhythm , ABDOMEN: Soft , no tenderness EXTREMITIES: Bilateral heels wounds with slough tissue right is more extensive involvement of the palpable no drainage - Labs CBC & Chem 7: 11/28/23 06:37 11/29/23 05:34 Labs: Abnormal Lab Results - Last 24 Hours (Table) 11/28/23 11/28/23 11/28/23 Range/Units 06:37 06:37 17:10 RBC 2.43 L (4.10-5.20) X 10*6/uL Hgb 7.7 L (12.0-15.0) g/dL Hct 25.2 L (37.2-46.3) % MCV 103.7 H (80.0-97.0) FL MCHC 30.6 L (32.0-37.0) g/dL RDW 14.9 H (11.5-14.5) % MPV 12.6 H (9.5-12.2) FL Eosinophils # 0.59 H (0.04-0.35) X 10*3/uL Sodium 146 H (135-145) mmol/L BUN 39.5 H (9.0-27.0) mg/dL Est GFR (CKD-EPI) 52 L (>=60) BUN/Creatinine Ratio 35.91 H (12.00-20.00) Ratio POC Glucose (mg/dL) 128 H (70-110) mg/dL AST 76 H (13-35) U/L Albumin/Globulin Ratio 0.93 L (1.60-3.17) Ratio 11/28/23 11/29/23 Range/Units 20:06 07:21 RBC (4.10-5.20) X 10*6/uL Hgb (12.0-15.0) g/dL Hct (37.2-46.3) % MCV (80.0-97.0) FL MCHC (32.0-37.0) g/dL RDW (11.5-14.5) % MPV (9.5-12.2) FL Eosinophils # (0.04-0.35) X 10*3/uL Sodium (135-145) mmol/L BUN (9.0-27.0) mg/dL Est GFR (CKD-EPI) (>=60) BUN/Creatinine Ratio (12.00-20.00) Ratio POC Glucose (mg/dL) 126 H 111 H (70-110) mg/dL AST (13-35) U/L Albumin/Globulin Ratio (1.60-3.17) Ratio Microbiology - Last 24 Hours (Table) 11/25/23 08:15 Gram Stain - Final Heel - Left Tissue Culture - Final Enterococcus faecalis Escherichia coli Assessment and Plan (1) Pressure ulcer of both heels, unstageable Current Visit: Yes Status: Acute Code(s): L89.610 - PRESSURE ULCER OF RIGHT HEEL, UNSTAGEABLE; L89.620 - PRESSURE ULCER OF LEFT HEEL, UNSTAGEABLE SNOMED Code(s): 470098574 (2) Infected pressure ulcer Current Visit: Yes Status: Acute Code(s): L89.90 - PRESSURE ULCER OF UNSPECIFIED SITE, UNSPECIFIED STAGE; L08.9 - LOCAL INFECTION OF THE SKIN AND SUBCUTANEOUS TISSUE, UNSP SNOMED Code(s): 514800814 (3) MRSA (methicillin resistant staph aureus) culture positive Current Visit: Yes Status: Acute Code(s): Z22.322 - CARRIER OR SUSPECTED CARRIER OF METHICILLIN RESIS STAPH SNOMED Code(s): 632879236 (4) Infection due to ESBL-producing Escherichia coli Current Visit: Yes Status: Acute Code(s): A49.8 - OTHER BACTERIAL INFECTIONS OF UNSPECIFIED SITE; Z16.12 - EXTENDED SPECTRUM BETA LACTAMASE (ESBL) RESISTANCE SNOMED Code(s): 061885563 Plan: 1patient with bilateral heel unstageable pressure ulcer infected with outpatient culture positive for ESBL E. coli MRSA and Proteus treated with Bactrim DS now being admitted to the hospital with worsening of the kidney function more likely related to the Bactrim DS which has been discontinued 2-patient is status post surgical debridement of bilateral heel wound completed, operative report mention no extension below the fascia however the wound can be palpable on the right heel area concerning for possible osteomyelitis 3-patient OR cultures are growing Enterococcus faecalis that is penicillin sensitive, however also growing ESBL E. coli 4we will discontinue the Unasyn and start the patient on Invanz will need a PICC line for outpatient antibiotic at the bedside questions were answered Dictation was produced using [employer] software. please excuse any grammatical, word or spelling errors. Time with Patient: Less than 30
[2023-11-29] MEDS: LIDOCAINE 1% INJ 10MG/ML (20 ML MDV) SQ ONE (15:12)
--- NOTE | 2023-11-29 15:47 | P.OP ---
Date of Procedure: 11/29/23 Description of Procedure: Preoperative Diagnosis: Need for long-term IV antibiotic access. Postoperative Diagnosis: Same. Procedure(s) Performed: Ultrasound-guided cannulation left basilic vein. Insertion of peripherally inserted central catheter under fluoroscopic guidance. Anesthesia: local 1% lidocaine plain Surgeon: Fiona Estimated Blood Loss (ml): 5 IV fluids (ml): 0 Urine output (ml): 0 Pathology: none sent Condition: stable Disposition: no change Indications for Procedure: Patient requires long-term IV antibiotics as an outpatient patient is offered a PICC line to allow for intravenous administration of antibiotics. Description of Procedure: Patient was brought to the special procedure suite. The left upper extremity sterilely prepped and draped in usual manner. Ultrasound was utilized to identify the basilic vein which was normally compressible free of visible thrombus. Permenant image was stored. 1% Xylocaine was utilized for local anesthesia tissues overlying the vein. Through this anesthetized area and with the aid of ultrasound a micropuncture needle was utilized to cannulate the vein. Once cannulated, Softip guidewire was advanced into the vein. The needle was withdrawn and a micropuncture sheath and dilator advanced over the guidewire. The guidewire was withdrawn and exchanged for the PICC guidewire and measured to the cavoatrial junction. The catheter was cut to size and advanced into the cavoatrial junction without resistance. The sheath was peeled away. Blood was easily withdrawn through the catheter and the catheter was then flushed with heparinized saline solution and secured to the skin. Patient tolerated procedure well and was returned to their room in satisfactory and stable condition.
--- NOTE | 2023-11-29 16:37 | IR ---
EXAMINATION TYPE: IR cvc insert >=5 years Intraoperative/procedural fluoroscopic services were provid ed. CLINICAL INDICATION:Female, 78 years old with history of Abx, 0.1m/0.155DAP, 4F 44cm lt basilic PIC C line; , [facility] Total fluoroscopy time is 0.1 min. DAP: 0.155 Gycm2 Please see the operative/procedural note for further details.
[2023-11-29 17:25] LABS: Glucose,Whole Blood 93 mg/dL (70-110)
[2023-11-29 20:22] LABS: Glucose,Whole Blood 148 mg/dL (70-110)
--- NOTE | 2023-11-30 06:01 | P.PN ---
Subjective Progress Note Date: 11/29/23 HISTORY OF PRESENT ILLNESS: 78-year-old Female who I been taking care of from [facility] since September with history of Alzheimer disease, type 2 diabetes, hypertension, hyperlipidemia, chronic depression, atrial fibrillation who was hospitalized at [facility] in September for severe generalized weakness with debility not been able to ambulate and walk was treated for severe dehydration and sent to SNF for rehab patient has not done well continue to have a problem with ambulating and walking 3 weeks ago found to have worsening infection of both heel area with severe PAD of the lower extremity had an appointment to see vascular but culture was done for it at the time shows 3 bulks include Proteus mirabilis, E. coli and methicillin-resistant Staph aureus and all match for clearance to be treated with Bactrim DS. Patient was started on Bactrim DS since November 11, 2023 she has an appointment with vascular sometime this week. As a part of her routine her lab was done earlier today and shows acute kidney failure with bun of 129 and creatinine 3.45 with worsening anemia hemoglobin is down to 8.2 from her borderline 10 early. The patient was sent to the emergency department for the acute kidney failure might require urgent hemodialysis and not clear whether this is dehydration based or happened because of effect of the Bactrim DS. Was seen and evaluated in the emergency department her hemoglobin went up to 9.2 but Hemoccult was positive and bun down to 123 with creatinine of 2.43 influenza RSV and COVID were negative. The patient was admitted to the hospital will consult nephrology, consult infectious disease and consult vascular at this point which initially was not able to see for at least an extra week. 11/25/2023: The patient went to the OR today with Dr. Kinney and had sharp excisional debridement bilateral heel wound area 1 on the right side measured 4.5 0.5 x 3 cm in depth. The 1 on the left measures 3.5 x 3.75 in length and width and 3 mm in depth. Both were debrided nonviable tissue there is no tunneling the wound is extended down to the level of the fascia bilaterally. Also fortunately her kidney function is improving significantly creatinine is down to 2.8 with urine output 1300 cc in 24 hours nephrology are happy about the process patient does not require any dialysis yet this is still considered to be an acute tubular necrosis BUN/creatinine quite elevated as well from GI bleed which patient is not in any active bleed at this point. Infectious disease on the other hand are happy with the current management especially if the debridement will be better and analyzing the culture being positive for ESBL and MRSA she was off Vanco and meropenem and started on daptomycin seen to be doing slightly better with. Will start resuming some of her home meds continue hydration currently with the current consult more happy to see the wound is taking care of her a lot faster. 11/26/2023: She has done well since her surgery pain is under control with minimal medication, kidney function is improving significantly bun is down 77 with creatinine 1.63, her urine output is running quite bed last 24 hours she had over 1300 cc. Still on IV hydration her vitals are holding well. Also from infectious disease standpoint with good she had with the heel was unstageable pressure ulcer infected with a culture of ESBL, E. coli and MRSA she will be continue on daptomycin and meropenem till the OR culture is complete, patient will need a PICC line which probably will be scheduled for Wednesday. Further recommendation for her final antibiotic use and time will be finalized probably around Wednesday of this coming week. 11/27/2023: She is doing well, No need for hemodialysis at this point her edema and kidney function is much better. Continue IV antibiotics physically and psychologically her interaction is quite limited specially with her memory loss. Sadly hemoglobin still slightly low but no need for transfusion at this point yet. Waiting for PICC line for tomorrow to finalize her IV antibiotics and prepare hopefully for sending her back SNF sometime this week. 11/28/2023: was on the bedside Long discussion about expectation and prognosis. He is in completely different concerned that when he been told about the problem of the kidney, circulation, unstageable ulcer with possible having to lose more tissue of her feet in the next few weeks. The is worried about his short-term memory which patient has advanced dementia has been on 2 different medication for long time. Also her mobility is significantly decreased due to increased of having it skin outbreak specially in the sacrum and the buttocks area. All his questions were answered. Patient has no objective about having PICC line tomorrow and change antibiotic. 11/29/2023: PICC line is to be done today, patient will be continue on IV antibiotics apparently Invanz for the next few weeks. Continue topical care the patient still seen vascular debridement is good at this point she probably needs to be seen back in office in the next 2 weeks. From nephrology standpoint patient acute kidney injury and kidney failure is much better creatinine is down to 1.0 continue hydration and try to avoid any nephrotoxic agent at this point REVIEW OF SYSTEMS: CONSTITUTIONAL: Elderly quite confused in no acute respiratory distress EYES: No icterus sclerae, no conjunctivitis. EARS, NOSE, MOUTH, THROAT, and FACE: No sore throat, lymphadenopathy, carotid bruits or deformity. RESPIRATORY: Mild shortness of breath no cough or wheezes.. CARDIOVASCULAR: No CP, Palpitation, PND, Orthopnea, or angina. GASTROINTESTINAL: No Abd pain, Nausea or vomiting, no Diarrhea or constipation, Hemoccult is positive for no complaint of abdominal pain or active bleed. GENITOURINARY: Negative for Hematuria or UTI, no kidney stones. Acute kidney failure. INTEGUMENT/BREAST: Negative for any muscular injury with mild osteoarthritis.. HEMATOLOGIC/LYMPHATIC: Negative for bleed or purpura. MUSCULOSKELTAL: Negative for Myalgia or arthralgia. Both lower extremity with nasty looking area of infection on the heel area bilaterally smelled bad. NEURLOGICAL: No LOC, Sz or syncope, blurred vision dizziness or abnormality. Advanced dementia. BEHAVIORAL/PSYCH: Negative. ENDOCRINE: Negative. PHYSICAL EXAMINATION: General Appearance: Alert, cooperative, looks older than her age does not respond much does not look in any respiratory distress. Neck HEENT: Supple, no lymphadenopathy, no thyroid enlargement, no carotid bruits. Lungs: Decreased breath sound bilaterally with fine rhonchi slight crackles in the bases specially right side. Chest Wall: Decreased l expansion with deep inspiration no tenderness and no deformity was found on exam, no costochondral pain or discomfort. Heart: Irregular rate and rhythm, S1, S2 normal, no murmur, rub or gallop. Back: Symmetric, no curvature, ROM normal, no CVA tenderness. Abdomen: Soft, non-tender, bowel sounds active all four quadrants, no masses, no organomegaly. Slight discomfort lower abdominal region area. Extremities: Not able to feel any palpable pulse and dorsalis pedis or posterior tibial but there is an open wound area in the heel the side of her foot looks like stage II with measurement of 5.7 cm. Pulses: Not palpable. Skin: Skin color, texture, tugor normal, no rashes or lesions. Neurologic: Alert not oriented cranial nerves II through XII intact, generalized weakness not been able to do gait exam. ASSESSMENT AND PLAN: _Severe unstageable bilateral ulcer of both heel with infection with Proteus mirabilis, E. coli and MRSA, infectious disease changed antibiotic to daptomycin and off vancomycin and meropenem at this point. Patient went for debridement today and hopefully that will accelerate the healing process a lot faster. Continue daptomycin and meropenem till the final culture will need probably PICC line and IV antibiotics to complete few weeks while she is in [facility]. Apparently will be on IV Invanz infusion as an outpatient. _Acute kidney failure: Creatinine is down to 1.0 no need for any dialysis. _Left side pneumonia or infiltrate: Clinically looks like it is improving. _GI bleed: Still on PPI no significant drop in hemoglobin stable and doing better. She still off anticoagulation hemoglobin is not declining anymore will initiate anticoagulation probably sometime next week. _Acute blood loss anemia: Hemoglobin down to 7, iron infusion was done and patient will probably require blood transfusion if hemoglobin still down. _Type 2 diabetes: Has been on pioglitazone, NovoLog per sliding scales one of the idea probably to take her off the pioglitazone and switch her to long-acting and short acting insulin. _Advanced dementia: Resume home meds patient is interacting little bit more today. _Peripheral arterial disease of lower extremity: Further testing after this bad infection he will might need to be. _History of A-fib with RVR resume beta-haroon which will be off anticoagulation at least for the next week to 2 weeks. _Hypothyroidism: Continue levothyroxine 200 mcg daily. _Peripheral neuropathy: Has been having more symptoms mostly related to her ulcer and infection apparently she is doing gabapentin 100 mg twice a day and duloxetine 30 mg daily. _Hyperlipidemia: Continue Lipitor 20 mg daily. _Hypertension: Was on metoprolol combined with losartan 25 mg a day but resume medication. _Chronic pain syndrome: Patient is more confused with heavy medication try to use more alternative like Tylenol if needed to control the pain. Prognosis: Slightly bit better but still guarded. Discharge planning: Hopefully she will be going back to [facility] maybe on Wednesday. Objective - Vital Signs Vital signs: Vital Signs Temp 98 F 11/29/23 01:57 Pulse 85 03/11/24 01:57 Resp 16 11/29/23 01:57 BP 125/66 11/29/23 01:57 Pulse Ox 97 11/29/23 01:57 FiO2 Intake & Output 11/28/23 11/29/23 11/29/23 18:59 06:59 18:59 Output Total 1075 1200 Balance -1075 -1200 Output: Urine 1075 1200 Other: Voiding Method Indwelling Catheter Indwelling Catheter # Bowel Movements 1 - Labs CBC & Chem 7: 11/28/23 06:37 11/29/23 05:34 Labs: Abnormal Lab Results - Last 24 Hours (Table) 11/28/23 11/28/23 11/28/23 Range/Units 06:37 06:37 17:10 RBC 2.43 L (4.10-5.20) X 10*6/uL Hgb 7.7 L (12.0-15.0) g/dL Hct 25.2 L (37.2-46.3) % MCV 103.7 H (80.0-97.0) FL MCHC 30.6 L (32.0-37.0) g/dL RDW 14.9 H (11.5-14.5) % MPV 12.6 H (9.5-12.2) FL Eosinophils # 0.59 H (0.04-0.35) X 10*3/uL Sodium 146 H (135-145) mmol/L BUN 39.5 H (9.0-27.0) mg/dL Est GFR (CKD-EPI) 52 L (>=60) BUN/Creatinine Ratio 35.91 H (12.00-20.00) Ratio POC Glucose (mg/dL) 128 H (70-110) mg/dL AST 76 H (13-35) U/L Albumin/Globulin Ratio 0.93 L (1.60-3.17) Ratio 11/28/23 11/29/23 Range/Units 20:06 07:21 RBC (4.10-5.20) X 10*6/uL Hgb (12.0-15.0) g/dL Hct (37.2-46.3) % MCV (80.0-97.0) FL MCHC (32.0-37.0) g/dL RDW (11.5-14.5) % MPV (9.5-12.2) FL Eosinophils # (0.04-0.35) X 10*3/uL Sodium (135-145) mmol/L BUN (9.0-27.0) mg/dL Est GFR (CKD-EPI) (>=60) BUN/Creatinine Ratio (12.00-20.00) Ratio POC Glucose (mg/dL) 126 H 111 H (70-110) mg/dL AST (13-35) U/L Albumin/Globulin Ratio (1.60-3.17) Ratio Microbiology - Last 24 Hours (Table) 11/25/23 08:15 Gram Stain - Final Heel - Left Tissue Culture - Final Enterococcus faecalis Escherichia coli
[2023-11-30 07:07] LABS: Glucose,Whole Blood 97 mg/dL (70-110)
--- NOTE | 2023-11-30 08:04 | P.DS ---
Providers Date of admission: 11/23/23 22:14 Attending physician: Carmelo Woods Consults: 11/23/23 22:30 Consult Physician Routine Consulting Provider: Fady Muhammad Consult Reason/Comments: janet Do you want consulting provider notified?: Yes 11/24/23 05:29 Consult Physician Routine Consulting Provider: Rochelle Fong Consult Reason/Comments: Infected wound both feet Do you want consulting provider notified?: Yes Primary care physician: [facility] Course: HISTORY OF PRESENT ILLNESS: 78-year-old Female who I been taking care of from [facility] since September with history of Alzheimer disease, type 2 diabetes, hypertension, hyperlipidemia, chronic depression, atrial fibrillation who was hospitalized at [facility] in September for severe generalized weakness with debility not been able to ambulate and walk was treated for severe dehydration and sent to SNF for rehab patient has not done well continue to have a problem with ambulating and walking 3 weeks ago found to have worsening infection of both heel area with severe PAD of the lower extremity had an appointment to see vascular but culture was done for it at the time shows 3 bulks include Proteus mirabilis, E. coli and methicillin-resistant Staph aureus and all match for clearance to be treated with Bactrim DS. Patient was started on Bactrim DS since November 11, 2023 she has an appointment with vascular sometime this week. As a part of her routine her lab was done earlier today and shows acute kidney failure with bun of 129 and creatinine 3.45 with worsening anemia hemoglobin is down to 8.2 from her borderline 10 early. The patient was sent to the emergency department for the acute kidney failure might require urgent hemodialysis and not clear whether this is dehydration based or happened because of effect of the Bactrim DS. Was seen and evaluated in the emergency department her hemoglobin went up to 9.2 but Hemoccult was positive and bun down to 123 with creatinine of 2.43 influenza RSV and COVID were negative. The patient was admitted to the hospital will consult nephrology, consult infectious disease and consult vascular at this point which initially was not able to see for at least an extra week. 11/25/2023: The patient went to the OR today with Dr. Kinney and had sharp excisional debridement bilateral heel wound area 1 on the right side measured 4.5 0.5 x 3 cm in depth. The 1 on the left measures 3.5 x 3.75 in length and width and 3 mm in depth. Both were debrided nonviable tissue there is no tunneling the wound is extended down to the level of the fascia bilaterally. Also fortunately her kidney function is improving significantly creatinine is down to 2.8 with urine output 1300 cc in 24 hours nephrology are happy about the process patient does not require any dialysis yet this is still considered to be an acute tubular necrosis BUN/creatinine quite elevated as well from GI bleed which patient is not in any active bleed at this point. Infectious disease on the other hand are happy with the current management especially if the debridement will be better and analyzing the culture being positive for ESBL and MRSA she was off Vanco and meropenem and started on daptomycin seen to be doing slightly better with. Will start resuming some of her home meds continue hydration currently with the current consult more happy to see the wound is taking care of her a lot faster. 11/26/2023: She has done well since her surgery pain is under control with minimal medication, kidney function is improving significantly bun is down 77 with creatinine 1.63, her urine output is running quite bed last 24 hours she had over 1300 cc. Still on IV hydration her vitals are holding well. Also from infectious disease standpoint with good she had with the heel was unstageable pressure ulcer infected with a culture of ESBL, E. coli and MRSA she will be continue on daptomycin and meropenem till the OR culture is complete, patient will need a PICC line which probably will be scheduled for Wednesday. Further recommendation for her final antibiotic use and time will be finalized probably around Wednesday of this coming week. 11/27/2023: She is doing well, No need for hemodialysis at this point her edema and kidney function is much better. Continue IV antibiotics physically and psychologically her interaction is quite limited specially with her memory loss. Sadly hemoglobin still slightly low but no need for transfusion at this point yet. Waiting for PICC line for tomorrow to finalize her IV antibiotics and prepare hopefully for sending her back SNF sometime this week. 11/28/2023: was on the bedside Long discussion about expectation and prognosis. He is in completely different concerned that when he been told about the problem of the kidney, circulation, unstageable ulcer with possible having to lose more tissue of her feet in the next few weeks. The is worried about his short-term memory which patient has advanced dementia has been on 2 different medication for long time. Also her mobility is significantly decreased due to increased of having it skin outbreak specially in the sacrum and the buttocks area. All his questions were answered. Patient has no objective about having PICC line tomorrow and change antibiotic. 11/29/2023: PICC line is to be done today, patient will be continue on IV antibiotics apparently Invanz for the next few weeks. Continue topical care the patient still seen vascular debridement is good at this point she probably needs to be seen back in office in the next 2 weeks. From nephrology standpoint patient acute kidney injury and kidney failure is much better creatinine is down to 1.0 continue hydration and try to avoid any nephrotoxic agent at this point. 11/30/2023: Patient is more awake and alert today doing well she is not in much pain, the final plan with IV antibiotic for Invanz by infectious disease. Awaiting for her blood count today patient should be all set to be discharged back today to SNF. She is stable medically with kidney function is much better hemoglobin still running in the 7 after iron infusion does not require any transfusion at this point. REVIEW OF SYSTEMS: CONSTITUTIONAL: Elderly quite confused in no acute respiratory distress EYES: No icterus sclerae, no conjunctivitis. EARS, NOSE, MOUTH, THROAT, and FACE: No sore throat, lymphadenopathy, carotid bruits or deformity. RESPIRATORY: Mild shortness of breath no cough or wheezes.. CARDIOVASCULAR: No CP, Palpitation, PND, Orthopnea, or angina. GASTROINTESTINAL: No Abd pain, Nausea or vomiting, no Diarrhea or constipation, Hemoccult is positive for no complaint of abdominal pain or active bleed. GENITOURINARY: Negative for Hematuria or UTI, no kidney stones. Acute kidney failure. INTEGUMENT/BREAST: Negative for any muscular injury with mild osteoarthritis.. HEMATOLOGIC/LYMPHATIC: Negative for bleed or purpura. MUSCULOSKELTAL: Negative for Myalgia or arthralgia. Both lower extremity with nasty looking area of infection on the heel area bilaterally smelled bad. NEURLOGICAL: No LOC, Sz or syncope, blurred vision dizziness or abnormality. Advanced dementia. BEHAVIORAL/PSYCH: Negative. ENDOCRINE: Negative. PHYSICAL EXAMINATION: General Appearance: Alert, cooperative, looks older than her age does not respond much does not look in any respiratory distress. Neck HEENT: Supple, no lymphadenopathy, no thyroid enlargement, no carotid bruits. Lungs: Decreased breath sound bilaterally with fine rhonchi slight crackles in the bases specially right side. Chest Wall: Decreased l expansion with deep inspiration no tenderness and no deformity was found on exam, no costochondral pain or discomfort. Heart: Irregular rate and rhythm, S1, S2 normal, no murmur, rub or gallop. Back: Symmetric, no curvature, ROM normal, no CVA tenderness. Abdomen: Soft, non-tender, bowel sounds active all four quadrants, no masses, no organomegaly. Slight discomfort lower abdominal region area. Extremities: Not able to feel any palpable pulse and dorsalis pedis or posterior tibial but there is an open wound area in the heel the side of her foot looks like stage II with measurement of 5.7 cm. Pulses: Not palpable. Skin: Skin color, texture, tugor normal, no rashes or lesions. Neurologic: Alert not oriented cranial nerves II through XII intact, generalized weakness not been able to do gait exam. ASSESSMENT AND PLAN: _Severe unstageable bilateral ulcer of both heel with infection with Proteus mirabilis, E. coli and MRSA, infectious disease changed antibiotic to daptomycin and off vancomycin and meropenem at this point. Patient went for debridement today and hopefully that will accelerate the healing process a lot faster. Continue daptomycin and meropenem till the final culture will need probably PICC line and IV antibiotics to complete few weeks while she is in [facility]. Apparently will be on IV Invanz infusion as an outpatient. _Acute kidney failure: Creatinine is down to 1.0 no need for any dialysis. _Left side pneumonia or infiltrate: Clinically looks like it is improving. _GI bleed: Still on PPI no significant drop in hemoglobin stable and doing better. She still off anticoagulation hemoglobin is not declining anymore will initiate anticoagulation probably sometime next week. _Acute blood loss anemia: Hemoglobin down to 7, iron infusion was done and patient will probably require blood transfusion if hemoglobin still down. _Type 2 diabetes: Has been on pioglitazone, NovoLog per sliding scales one of the idea probably to take her off the pioglitazone and switch her to long-acting and short acting insulin. _Advanced dementia: Resume home meds patient is interacting little bit more today. _Peripheral arterial disease of lower extremity: Further testing after this bad infection he will might need to be. _History of A-fib with RVR resume beta-haroon which will be off anticoagulation at least for the next week to 2 weeks. _Hypothyroidism: Continue levothyroxine 200 mcg daily. _Peripheral neuropathy: Has been having more symptoms mostly related to her ulcer and infection apparently she is doing gabapentin 100 mg twice a day and duloxetine 30 mg daily. _Hyperlipidemia: Continue Lipitor 20 mg daily. _Hypertension: Was on metoprolol combined with losartan 25 mg a day but resume medication. _Chronic pain syndrome: Patient is more confused with heavy medication try to use more alternative like Tylenol if needed to control the pain. Prognosis: Slightly bit better but still guarded. Discharge planning: She will be discharged back to [facility] today. Hospital course: Patient was hospitalized with acute kidney failure and sepsis with bilateral feet and unstageable aggressive type of gangrenous diabetic foot ulcer. Was started on aggressive hydration seen nephrology ultrasound of the kidney was done taking away all nephrotoxic agent her kidney function started improving. Also patient found to be in the gastrointestinal bleed with positive Hemoccult and hemoglobin is down in the 8 level was stabilized over hospitalization and did not require any gastrointestinal scope her hemoglobin settled down around 7.7 with affect of the chronic anemia related to her kidney function and kidney failure as well. Patient ended up going to the vascular lab and had debridement of both feet ulcerated area has done better with it developed to have slight bit pain was seen in the wound care and continue current dressing. In the last 48 hours patient has been more stable her culture is back and she will be on Invanz IV antibiotic for the next 3+ weeks. Patient is ready to be discharged back to [facility] today her prescription for finalized and patient be seen back tomorrow within the next 48 hours. Time spent on discharging patient was more than 35 minutes. Patient Condition at Discharge: Serious Plan - Discharge Summary Discharge Rx Participant: No New Discharge Prescriptions: New Pantoprazole [Protonix] 40 mg PO AC-BRKFST tab Albuterol Nebulized [Ventolin Nebulized] 2.5 mg INHALATION RT-QID ml Ertapenem [INVanz] 1 gm IVPB Q24H #40 each INSULIN ASPART (NovoLOG) [NovoLOG (formulary)] 0 unit SQ ACHS each Continue Memantine [Namenda] 10 mg PO DAILY Isosorbide Mononitrate ER [Imdur] 30 mg PO DAILY Donepezil [Aricept] 10 mg PO HS Melatonin 3 mg PO HS PRN tab PRN Reason: Insomnia Gabapentin [Neurontin] 100 mg PO BID #3 cap bisacodyL [Dulcolax] 10 mg RECTAL DAILY PRN PRN Reason: Constipation Sennosides [Senokot] 8.6 mg PO BID Atorvastatin [Lipitor] 20 mg PO HS Dicyclomine [Bentyl] 10 mg PO QID PRN PRN Reason: IBS rOPINIRole HCL [Requip] 0.5 mg PO TID Levothyroxine Sodium [Synthroid] 200 mcg PO DAILY Cholecalciferol [Vitamin D3 (125 Mcg = 5000 Iu)] 250 mcg PO DAILY Metoprolol Tartrate [Lopressor] 25 mg PO BID-W/MEALS DULoxetine HCL [Cymbalta] 30 mg PO DAILY Mag Hydrox/Al Hydrox/Simeth [Maalox] 15 ml PO Q6HR PRN ml PRN Reason: Indigestion Calcium Carbonate [Tums] 1,000 mg PO Q4HR PRN tab PRN Reason: Dyspepsia Acetaminophen Tab [Tylenol] 650 mg PO Q6HR PRN tab PRN Reason: Mild Pain Or Fever > 100.5 Magnesium Hydroxide [Milk of Magnesia Concentrate] 7,200 mg PO DAILY PRN PRN Reason: Constipation Tj Packet 1 packet PO BID-W/MEALS Lidocaine 5% Cream 1 applic TOPICAL WE Furosemide [Lasix] 80 mg PO DAILY Ensure Enlive 237 ml PO DAILY@1200 HYDROcodone/APAP 7.5-325MG [Frontier 7.5-325] 1 tab PO Q6H PRN #20 tab PRN Reason: Pain Changed Apixaban [Eliquis] 2.5 mg PO BID #0 Discontinued Potassium Chloride ER [K-Dur 20] 20 meq PO DAILY Losartan [Cozaar] 25 mg PO DAILY Na Phos,M-B/Na Phos,Di-Ba [Fleet Adult] 133 ml RECTAL DAILY PRN PRN Reason: Constipation INSULIN ASPART (NovoLOG) [NovoLOG (formulary)] See Protocol SQ ACHS Sulfamethoxazole/Trimethoprim [Bactrim DS 800-160 mg] 1 tab PO BID Pioglitazone [Actos] 15 mg PO DAILY Discharge Medication List Cholecalciferol [Vitamin D3 (125 Mcg = 5000 Iu)] 250 mcg PO DAILY 09/22/23 [History] DULoxetine HCL [Cymbalta] 30 mg PO DAILY 09/22/23 [History] Dicyclomine [Bentyl] 10 mg PO QID PRN 09/22/23 [History] Donepezil [Aricept] 10 mg PO HS 09/22/23 [History] Isosorbide Mononitrate ER [Imdur] 30 mg PO DAILY 09/22/23 [History] Levothyroxine Sodium [Synthroid] 200 mcg PO DAILY 09/22/23 [History] Memantine [Namenda] 10 mg PO DAILY 09/22/23 [History] Metoprolol Tartrate [Lopressor] 25 mg PO BID-W/MEALS 09/22/23 [History] rOPINIRole HCL [Requip] 0.5 mg PO TID 09/22/23 [History] Acetaminophen Tab [Tylenol] 650 mg PO Q6HR PRN tab 09/28/23 [Rx] Calcium Carbonate [Tums] 1,000 mg PO Q4HR PRN tab 09/28/23 [Rx] Gabapentin [Neurontin] 100 mg PO BID #3 cap 09/28/23 [Rx] Mag Hydrox/Al Hydrox/Simeth [Maalox] 15 ml PO Q6HR PRN ml 09/28/23 [Rx] Melatonin 3 mg PO HS PRN tab 09/28/23 [Rx] Atorvastatin [Lipitor] 20 mg PO HS 11/24/23 [History] Ensure Enlive 237 ml PO DAILY@1200 11/24/23 [History] Furosemide [Lasix] 80 mg PO DAILY 11/24/23 [History] Tj Packet 1 packet PO BID-W/MEALS 11/24/23 [History] Lidocaine 5% Cream 1 applic TOPICAL WE 11/24/23 [History] Magnesium Hydroxide [Milk of Magnesia Concentrate] 7,200 mg PO DAILY PRN 11/24/23 [History] Sennosides [Senokot] 8.6 mg PO BID 11/24/23 [History] bisacodyL [Dulcolax] 10 mg RECTAL DAILY PRN 11/24/23 [History] Albuterol Nebulized [Ventolin Nebulized] 2.5 mg INHALATION RT-QID ml 11/30/23 [Rx] Apixaban [Eliquis] 2.5 mg PO BID #0 03/12/24 [Rx] Ertapenem [INVanz] 1 gm IVPB Q24H #40 each 11/30/23 [Rx] HYDROcodone/APAP 7.5-325MG [Frontier 7.5-325] 1 tab PO Q6H PRN #20 tab 11/30/23 [Rx] INSULIN ASPART (NovoLOG) [NovoLOG (formulary)] 0 unit SQ ACHS each 11/30/23 [Rx] Pantoprazole [Protonix] 40 mg PO AC-BRKFST tab 11/30/23 [Rx] Follow up Appointment(s)/Referral(s): Trista Wilder MD [Primary Care Provider] - 1-2 days Andrés Torrez DO [Doctor of Osteopathic Medicine] - 2 Weeks Carmelo Woods MD [Medical Doctor] - 1 Week Rochelle Fong MD [STAFF PHYSICIAN] - 1 Week Ambulatory/Diagnostic Orders: Basic Metabolic Panel [LAB.AMB] Location: None Selected C Reactive Protein [LAB.AMB] Location: None Selected Complete Blood Count w/diff [LAB.AMB] Location: None Selected Erythrocyte Sedimentation Rate [LAB.AMB] Location: None Selected Discharge Disposition: TRANSFER TO SNF/ECF
[2023-11-30 11:08] LABS: Basophils % (A) 0 %; Eosinophils # (A) 0.4 k/uL (0-0.7); Eosinophils % (A) 4 %; HCT 23.1 % (34.0-46.0); HGB 7.3 gm/dL (11.4-16.0); Hypochromasia Slight; Lymphocytes # (A) 1.7 k/uL (1.0-4.8); Lymphocytes % (A) 19 %; MCH 32.5 pg (25.0-35.0); MCHC 31.7 g/dL (31.0-37.0); MCV 102.7 fL (80.0-100.0); Macrocytosis Slight; Monocytes # (A) 0.7 k/uL (0-1.0); Monocytes % (A) 8 %; Neutrophils # (A) 5.7 k/uL (1.3-7.7); Neutrophils % (A) 65 %; Platelet Count 289 k/uL (150-450); RBC 2.25 m/uL (3.80-5.40); RDW 15.1 % (11.5-15.5); WBC 8.8 k/uL (3.8-10.6)
[2023-11-30 11:21] LABS: ALT 24 U/L (4-34); AST 41 U/L (14-36); African American GFR (CKD) 62 (>60 ml/min/1.73 sqM); Albumin 2.1 g/dL (3.5-5.0); Albumin/Globulin Ratio 0.8; Alkaline Phosphatase 54 U/L (38-126); Anion Gap 6 mmol/L; Blood Urea Nitrogen 24 mg/dL (7-17); Calcium 8.4 mg/dL (8.4-10.2); Carbon Dioxide 25 mmol/L (22-30); Chloride 109 mmol/L (98-107); Globulin 2.8 g/dL; Glucose 87 mg/dL (74-99); Non-African American GFR(CKD) 54 (>60 ml/min/1.73 sqM); Potassium 3.8 mmol/L (3.5-5.1); Sodium 140 mmol/L (137-145); Total Bilirubin 0.3 mg/dL (0.2-1.3); Total Protein 4.9 g/dL (6.3-8.2)
[2023-11-30 11:26] LABS: BUN/Creat Ratio 21.73 Ratio (12.00-20.00); Blood Urea Nitrogen 23.9 mg/dL (9.0-27.0); Calcium 8.8 mg/dL (8.7-10.3); Carbon Dioxide 26.5 mmol/L (21.6-31.8); Chloride 108 mmol/L (96-109); Glucose 80 mg/dL (70-110); Magnesium 1.8 mg/dL (1.5-2.4); Potassium 3.9 mmol/L (3.5-5.5); Sodium 143 mmol/L (135-145)
[2023-11-30 11:53] LABS: Glucose,Whole Blood 99 mg/dL (70-110)
--- NOTE | 2023-11-30 12:01 | P.PN ---
Subjective Patient is seen in follow-up for acute kidney injury. Renal function near baseline. On half-normal saline. Sodium level 140. Jaimes catheter removed. Oral intake fair. Vital signs are stable. General: No acute distress. HEENT: Head exam is unremarkable. LUNGS: No audible rhonchi or wheezes. HEART: Rate and Rhythm are regular. ABDOMEN: Nontender. EXTREMITITES: No edema. No drainage. Objective - Vital Signs Vital signs: Vital Signs Temp 98.6 F 11/30/23 07:05 Pulse 76 11/30/23 07:57 Resp 20 11/30/23 07:05 BP 167/74 11/30/23 07:05 Pulse Ox 95 11/30/23 07:45 FiO2 Intake & Output 11/29/23 11/30/23 11/30/23 18:59 06:59 18:59 Intake Total 1400 Output Total 1000 Balance -1000 1400 Weight 90.718 kg Intake: Intake, IV Titration 900 Amount Sodium Chloride 0.45% 1, 900 000 ml @ 75 mls/hr IV . [id number] [facility] Rx#:[id number] Oral 500 Output: Urine 1000 Uretheral (Jaimes) 1000 Other: Voiding Method Indwelling Catheter Diaper Diaper Incontinent Incontinent # Voids 3 - Labs CBC & Chem 7: 11/30/23 10:42 11/30/23 10:42 Labs: Abnormal Lab Results - Last 24 Hours (Table) 11/29/23 11/30/23 11/30/23 Range/Units 20:17 05:43 10:42 RBC 2.25 L (3.80-5.40) m/uL Hgb 7.3 L (11.4-16.0) gm/dL Hct 23.1 L (34.0-46.0) % MCV 102.7 H (80.0-100.0) fL Chloride (98-107) mmol/L BUN (7-17) mg/dL Est GFR (CKD-EPI) 52 L (>=60) BUN/Creatinine Ratio 21.73 H (12.00-20.00) Ratio POC Glucose (mg/dL) 148 H (70-110) mg/dL AST (14-36) U/L Total Protein (6.3-8.2) g/dL Albumin (3.5-5.0) g/dL 11/30/23 Range/Units 10:42 RBC (3.80-5.40) m/uL Hgb (11.4-16.0) gm/dL Hct (34.0-46.0) % MCV (80.0-100.0) fL Chloride 109 H (98-107) mmol/L BUN 24 H (7-17) mg/dL Est GFR (CKD-EPI) (>=60) BUN/Creatinine Ratio (12.00-20.00) Ratio POC Glucose (mg/dL) (70-110) mg/dL AST 41 H (14-36) U/L Total Protein 4.9 L (6.3-8.2) g/dL Albumin 2.1 L (3.5-5.0) g/dL Microbiology - Last 24 Hours (Table) 11/23/23 22:50 Blood Culture - Final Blood 11/23/23 22:35 Blood Culture - Final Blood Assessment and Plan Plan: Assessment: 1. Acute kidney injury secondary to ATN secondary to severe sepsis. Creatinine peaked at 3.8 this admission and down to 1.01 today. 2. Chronic kidney disease stage IIIb with creatinine near 1.4 in September 2023. 3. Bilateral heel wounds on antibiotics. 4. Metabolic acidosis secondary to acute kidney injury and IV fluids. Improved with bicarb drip. 5. Anemia. Iron deficiency noted. Status post IV iron. 6. Urinary retention. Jaimes catheter removed. On Flomax. 7. Hypernatremia from lack of oral water intake. Better with hypotonic fluid infusion. Plan: Hep-Lock IV fluids. Encouraged oral intake. Avoid nephrotoxins. Continue to monitor renal function and urine output. Add Aranesp.
[2023-11-30 12:22] VITALS: RESP 16
[2023-11-30] MEDS: DARBEPOETIN ALFA 40 MCG/0.4 ML SYRINGE SQ SCH (14:01)
--- NOTE | 2023-11-30 16:29 | P.PN ---
Subjective Progress Note Date: 11/30/23 Principal diagnosis: Reason for follow-up is bilateral heel infected pressure ulcer Patient is a 78-year-old female with a past medical history significant for diabetes mellitus short-term memory loss patient is a long term resident patient did have a nonhealing wound to bilateral heel area and apparently patient did have a outpatient culture done on 11/11/2023 and grew Proteus E. coli and MRSA E. coli was ESBL treated with the Bactrim DS was admitted to hospital worsening kidney function. Patient s/p surgical debridement of bilateral heel wound by vascular surgery mention extending down to the fascia only. On today's visit that is 11/30/2023, the patient continues to be afebrile, the patient is on 2 L nasal cannula oxygen and breathing comfortably per the at the bedside patient is slightly sleepy lethargic and did not answer any question no vomiting diarrhea or any other changes reported mention pain to bilateral heel area has slightly decreased in intensity. Patient white count of 8.8, creatinine 1.01 culture positive for Enterococcus faecalis and ESBL E. coli Objective - Vital Signs Vital signs: Vital Signs Temp 98.6 F 11/30/23 07:05 Pulse 76 11/30/23 07:57 Resp 20 11/30/23 07:05 BP 167/74 11/30/23 07:05 Pulse Ox 95 11/30/23 07:45 FiO2 Intake & Output 11/29/23 11/30/23 11/30/23 18:59 06:59 18:59 Intake Total 1400 Output Total 1000 Balance -1000 1400 Weight 90.718 kg Intake: Intake, IV Titration 900 Amount Sodium Chloride 0.45% 1, 900 000 ml @ 75 mls/hr IV . [id number] COUNT INCLUDES THE [facility] Rx#:[id number] Oral 500 Output: Urine 1000 Uretheral (Jaimes) 1000 Other: Voiding Method Indwelling Catheter Diaper Diaper Incontinent Incontinent # Voids 3 - Exam GENERAL DESCRIPTION: An elderly female lying in bed in no distress RESPIRATORY SYSTEM: Unlabored breathing , decreased breath sounds at bases HEART: S1 S2 regular rate and rhythm , ABDOMEN: Soft , no tenderness EXTREMITIES: Bilateral heels wounds with slough tissue right is more extensive involvement of the palpable no drainage - Labs CBC & Chem 7: 11/30/23 10:42 11/30/23 10:42 Labs: Abnormal Lab Results - Last 24 Hours (Table) 11/29/23 11/30/23 11/30/23 Range/Units 20:17 10:42 10:42 RBC 2.25 L (3.80-5.40) m/uL Hgb 7.3 L (11.4-16.0) gm/dL Hct 23.1 L (34.0-46.0) % MCV 102.7 H (80.0-100.0) fL Chloride 109 H (98-107) mmol/L BUN 24 H (7-17) mg/dL POC Glucose (mg/dL) 148 H (70-110) mg/dL AST 41 H (14-36) U/L Total Protein 4.9 L (6.3-8.2) g/dL Albumin 2.1 L (3.5-5.0) g/dL Microbiology - Last 24 Hours (Table) 11/23/23 22:50 Blood Culture - Final Blood 11/23/23 22:35 Blood Culture - Final Blood Assessment and Plan (1) Pressure ulcer of both heels, unstageable Current Visit: Yes Status: Acute Code(s): L89.610 - PRESSURE ULCER OF RIGHT HEEL, UNSTAGEABLE; L89.620 - PRESSURE ULCER OF LEFT HEEL, UNSTAGEABLE SNOMED Code(s): 894939613 (2) Infected pressure ulcer Current Visit: Yes Status: Acute Code(s): L89.90 - PRESSURE ULCER OF UNSPECIFIED SITE, UNSPECIFIED STAGE; L08.9 - LOCAL INFECTION OF THE SKIN AND SUBCUTANEOUS TISSUE, UNSP SNOMED Code(s): 544056800 (3) MRSA (methicillin resistant staph aureus) culture positive Current Visit: Yes Status: Acute Code(s): Z22.322 - CARRIER OR SUSPECTED CARRIER OF METHICILLIN RESIS STAPH SNOMED Code(s): 315842027 (4) Infection due to ESBL-producing Escherichia coli Current Visit: Yes Status: Acute Code(s): A49.8 - OTHER BACTERIAL INFECTIONS OF UNSPECIFIED SITE; Z16.12 - EXTENDED SPECTRUM BETA LACTAMASE (ESBL) RESISTANCE SNOMED Code(s): 110304906 Plan: 1patient with bilateral heel unstageable pressure ulcer infected with outpatient culture positive for ESBL E. coli MRSA and Proteus treated with Bactrim DS now being admitted to the hospital with worsening of the kidney f unction more likely related to the Bactrim DS which has been discontinued 2-patient is status post surgical debridement of bilateral heel wound completed, operative report mention no extension below the fascia however the wound can be palpable on the right heel area concerning for possible osteomyelitis 3-patient OR cultures are growing Enterococcus faecalis that is penicillin sensitive, however also growing ESBL E. coli 4patient did get a PICC line plan is for 6-week course of IV Invanz 1 g daily local wound care with the Santyl and keep the area of the pressure and close outpatient follow-up at the bedside questions answered Dictation was produced using [employer] dictation software. please excuse any grammatical, word or spelling errors. Time with Patient: Less than 30
[2023-11-30 16:37] LABS: Glucose,Whole Blood 112 mg/dL (70-110)
[2023-11-30 20:26] LABS: Glucose,Whole Blood 97 mg/dL (70-110)
[2023-12-01 07:12] LABS: Glucose,Whole Blood 94 mg/dL (70-110)
[2023-12-01 08:11] VITALS: BP 150/67; TEMP 99.2
[2023-12-01 10:00] VITALS: PULSE 80
--- NOTE | 2023-12-01 12:13 | P.PN ---
Subjective Patient is seen in follow-up for acute kidney injury. Renal function near baseline. Has been voiding. Oral intake poor. present at bedside. Vital signs are stable. General: No acute distress. HEENT: Head exam is unremarkable. LUNGS: No audible rhonchi or wheezes. HEART: Rate and Rhythm are regular. ABDOMEN: Nontender. EXTREMITITES: No edema. No drainage. Objective - Vital Signs Vital signs: Vital Signs Temp 99.2 F 12/01/23 07:10 Pulse 80 12/01/23 09:53 Resp 16 12/01/23 07:10 BP 150/67 12/01/23 07:10 Pulse Ox 95 12/01/23 07:10 FiO2 Intake & Output 11/30/23 12/01/23 12/01/23 18:59 06:59 18:59 Intake Total 100 120 Balance 100 120 Weight 90.718 kg Intake: Intake, IV Titration 100 Amount Sodium Ferric Gluconat- 100 Sucrose 125 mg In Sodium Chloride 0.9% 100 ml @ 100 mls/hr IVPB DAILY [facility] Rx#:[id number] Oral 120 Other: Voiding Method Diaper Diaper Diaper Incontinent Incontinent Incontinent # Voids 3 2 - Labs CBC & Chem 7: 11/30/23 10:42 11/30/23 10:42 Labs: Abnormal Lab Results - Last 24 Hours (Table) 11/30/23 Range/Units 16:36 POC Glucose (mg/dL) 112 H (70-110) mg/dL Assessment and Plan Plan: Assessment: 1. Acute kidney injury secondary to ATN secondary to severe sepsis. Creatinine peaked at 3.8 this admission and down to 1.01 yesterday. 2. Chronic kidney disease stage IIIb with creatinine near 1.4 in September 2023. 3. Bilateral heel wounds on antibiotics. 4. Metabolic acidosis secondary to acute kidney injury and IV fluids. Improved with bicarb drip. 5. Anemia. Iron deficiency noted. Status post IV iron. On Aranesp. 6. Urinary retention. Jaimes catheter removed. On Flomax. 7. Hypernatremia from lack of oral water intake. Improved with hypotonic fluid infusion. Plan: Remains off IV fluids. Encouraged oral intake. Avoid nephrotoxins. Continue to monitor renal function and urine output. Follow-up outpatient 1 week postdischarge. Will be going to [facility].
--- NOTE | 2023-12-06 11:02 | CDI ---
Documentation Clarification Form Date: 12/06/2023 10:24:24 AM From: Asia Thomas RN, CCDS Email: [email or web address] Admit Date: 11/23/2023 10:14:00 PM Patient Name: Maria Guadalupe Slater Visit Number: [id number] Discharge Date: 12/01/2023 11:53:00 AM ATTENTION: The Clinical Documentation Specialists (CDI) and [facility] Coding Staff appreciate your assistance in clarifying documentation. Please respond to the clarification below the line at the bottom and electronically sign. The CDI & [facility] Coding staff will review the response and follow-up if needed. Please note: Queries are made part of the Legal Health Record. If you have any questions, please contact the author of this message via ITS. Dr. Carmelo Woods Sepsis is documented by the Sterilizer Operator and in the discharge summary which may lack sufficient clinical evidence/support in the medical record. Additional clarification is requested. History/Risk Factors: Alzheimer's, DM, HTN, severe PAD to BL heels with infection, unable to ambulate. Presented from [facility] with AMS and hypoxia. Clinical Indicators: 11/22-12/05 WBC: 9.2-10.5-7.55-6.7 11/22 Lactic acid: 2.0, Cr 3.48 11/22 Blood cultures negative 11/22 vital signs: Temp 98.4, HR 72, RR 18, BP 158/88 11/23 vital signs: Temp 101.6-97.4, HR 91 11/24 Left heel tissue culture: E. 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 [ ] Sepsis ruled out [ ] Sepsis treated prophylactically [ xx ] Sepsis, present on admission is a valid diagnosis as evidence by the following: (Please add rationale): _B Heel infection [ ] Other, please specify [ ] Unable to determine MTDD
== END 2023-12-01 11:53 | DRG 853 ==
LOC: EC 20:59 → 5NMEDONC 22:14
PROVIDERS: ADMIT Internal Medicine Geriatric Medicine; ATTEND Internal Medicine Geriatric Medicine
DX: A41.59 Other Gram-negative sepsis (principal); J18.9 Pneumonia, unspecified organism; N17.0 Acute kidney failure with tubular necrosis; D62 Acute posthemorrhagic anemia; E87.0 Hyperosmolality and hypernatremia; E87.20 Acidosis, unspecified; F05 Delirium due to known physiological condition; F02.84 Dementia in other diseases classified elsewhere, unspecified severity, with anxiety; K92.2 Gastrointestinal hemorrhage, unspecified; J44.0 Chronic obstructive pulmonary disease with (acute) lower respiratory infection; I48.20 Chronic atrial fibrillation, unspecified; Z16.12 Extended spectrum beta lactamase (ESBL) resistance; E11.621 Type 2 diabetes mellitus with foot ulcer; R65.20 Severe sepsis without septic shock; I12.9 Hypertensive chronic kidney disease with stage 1 through stage 4 chronic kidney disease, or unspecified chronic kidney disease; B95.2 Enterococcus as the cause of diseases classified elsewhere; E11.22 Type 2 diabetes mellitus with diabetic chronic kidney disease; L89.610 Pressure ulcer of right heel, unstageable; N18.32 Chronic kidney disease, stage 3b; L89.620 Pressure ulcer of left heel, unstageable; G30.9 Alzheimer's disease, unspecified; I95.9 Hypotension, unspecified; E03.9 Hypothyroidism, unspecified; E11.40 Type 2 diabetes mellitus with diabetic neuropathy, unspecified; E11.51 Type 2 diabetes mellitus with diabetic peripheral angiopathy without gangrene; B96.4 Proteus (mirabilis) (morganii) as the cause of diseases classified elsewhere; B95.62 Methicillin resistant Staphylococcus aureus infection as the cause of diseases classified elsewhere; B96.20 Unspecified Escherichia coli [E. coli] as the cause of diseases classified elsewhere; Z79.4 Long term (current) use of insulin; E78.5 Hyperlipidemia, unspecified; E86.0 Dehydration; G89.4 Chronic pain syndrome; Z87.440 Personal history of urinary (tract) infections; R09.02 Hypoxemia; Z79.01 Long term (current) use of anticoagulants; Z79.84 Long term (current) use of oral hypoglycemic drugs; Z79.890 Hormone replacement therapy; Z79.899 Other long term (current) drug therapy; Z86.14 Personal history of Methicillin resistant Staphylococcus aureus infection
CPT/HCPCS: 36415; 36573; 71045; 76770; 80048; 80053; 81001; 82272; 83540; 83550; 83605; 83735; 83880; 84100; 84484; 85025; 85027; 85610; 85652; 85730; 87040; 87070; 87077; 87186; 87205; 87449; 87636; 93005; 93923; 94640; 94760; 96361; 96365; 96368; 99291